=== PATIENT | female | born 1935 | race Caucasian/White ===

== ENCOUNTER 2018-12-30 11:37 | Emergency (ER) | payer MEDICARE, SELFPAY ==
[2018-12-30 12:05] VITALS: BP 142/70; PULSE 71; RESP 16; TEMP 36.9; O2SAT 96
[2018-12-30 13:00] VITALS: BP 120/74; PULSE 84; RESP 16; O2SAT 95
[2018-12-30 13:19] LABS: Add Manual Diff / Slide Review NO; Basophils Absolute Auto 100 /uL (0-100); Basophils Percent Auto 1.1 % (0-2); Eosinophils Absolute Auto 100 /uL (0-450); Eosinophils Percent Auto 1.4 % (2-4); Hemoglobin 15.4 g/dL (12.0-16.0); Lymphocytes Absolute Auto 1400 /uL (1100-4500); Lymphocytes Percent Auto 15.8 % (25-40); Mean Corpuscular HGB Conc 34.2 % (30-36); Mean Corpuscular Hemoglobin 29.1 PG (26-34); Mean Corpuscular Volume 85.1 fL (80-100); Monocytes Absolute Auto 900 /uL (0-900); Monocytes Percent Auto 9.9 % (3-14); Neutrophils Absolute Auto 6400 /uL (1500-7000); Neutrophils Percent Auto 71.8 % (50-75); Platelet Count 311 X10^3/uL (150-400); Red Blood Cell Count 5.28 X10^6/uL (4.0-5.2); Red Cell Distribution Width 13.6 % (11.6-14.8); White Blood Cell Count 8.9 X10^3/uL (4.5-11.0)
[2018-12-30 13:37] LABS: Alanine Aminotransferase 35 IU/L (9-52); Albumin 4.4 g/dL (3.5-5.0); Albumin Globulin Ratio 1.4 (1.0-2.8); Alkaline Phosphatase 86 U/L (38-126); Aspartate Aminotransferase 36 IU/L (14-36); BUN Creatinine Ratio 16.7 (6-22); Bilirubin Total 0.9 mg/dL (0.2-1.3); Blood Urea Nitrogen 15 mg/dL (7-17); Calcium 9.7 mg/dL (8.4-10.2); Carbon Dioxide 30 mmol/L (22-32); Chloride 100 mmol/L (98-107); Estimated Glomerular Filt Rate > 60.0 mL/min (>60); Globulin 3.1 g/dL (1.7-4.1); Glucose 93 mg/dL (80-110); HEMOLYSIS < 15 (0-50); Lipase 87 U/L (23-300); Potassium 3.8 mmol/L (3.4-5.1); Sodium 139 mmol/L (137-145); Total Protein 7.5 g/dL (6.3-8.2)
--- NOTE | 2018-12-30 13:55 | DI.CT.S_ITS ---
PROCEDURE: CT ABDOMEN PELVIS W CON INDICATIONS: left lower quadrant pain, bilateral low back pain, indigestion, hx diverticu TECHNIQUE: After the administration of oral and intravenous contrast, 5 mm thick sections acquired from the diaphragms to the symphysis. 5 mm thick coronal and sagittal reformats were performed. For radiation dose reduction, the following was used: automated exposure control, adjustment of mA and/or kV according to patient size. COMPARISON: None. FINDINGS: Image quality: Excellent. ABDOMEN: Lung bases: Lung bases are clear. Heart size is normal. Solid organs: Liver is normal in size and enhancement. Gallbladder appears normal. Biliary system is non-dilated. Pancreas enhances normally. Spleen is normal in size and enhancement. No adrenal nodules. Kidneys are normal in size and enhancement, without hydronephrosis. Peritoneum and bowel: Stomach, small bowel, and colon loops are normal in caliber and wall thickness. No free fluid or air. Nodes and vessels: No retroperitoneal or mesenteric adenopathy. Aorta and inferior vena cava are normal in caliber. Miscellaneous: No ventral hernias. PELVIS: Genitourinary: Bladder wall thickness is normal. Miscellaneous: No inguinal hernias or adenopathy. Acute mild diverticulitis at the sigmoid colon in its middle and posterior thirds. Bones: No suspicious bony lesions. No vertebral body compression fractures. IMPRESSION: Acute sigmoid diverticulitis, without peridiverticular abscess. Otherwise the study appears normal. Dictated by: Cristóbal Mcdowell M.D. on 12/30/2018 at 14:58 Approved by: Cristóbal Mcdowell M.D. on 12/30/2018 at 14:59
[2018-12-30 14:19] VITALS: BP 133/61; PULSE 67; RESP 15; O2SAT 97
[2018-12-30 14:59] LABS: Bacteria Urine None Seen; WBC Urine None Seen (0-5/HPF)
[2018-12-30 15:00] VITALS: BP 121/61; PULSE 76; RESP 16; O2SAT 96
[2018-12-30 15:10] LABS: Culture Indicated Urine Cult Not Indicated; RBC Urine 1-5/HPF (0-5/HPF)
--- NOTE | 2018-12-30 15:18 | ED_ITS ---
HPI - Abdominal Pain <RENE VillanuevaP - Last Filed: 12/31/18 02:39> General Chief Complaint: Abdominal Pain Stated Complaint: states diverticulitis is back Time Seen by Provider: 12/30/18 12:00 Source: patient Mode of arrival: ambulatory Limitations: no limitations History of Present Illness HPI narrative: This is a pleasant 83-year-old female, nonsmoker, who presents to ED with left lower quadrant pain for 2 days with bilateral lower back pain. She reports she had diverticulitis about 10 years ago and her symptoms are similar to previous diverticulitis. She denies fever, chills, vomiting. She reports nausea, indigestion, acidic stomach. Patient states no changing in bowel habits and last bowel movement was this morning. She does have decrease in appetite and feeling gassy. The pain aggravates with movement, or changing in position. Related Data Previous Rx's Medication Instructions Recorded ciprofloxacin HCl [Cipro] 500 mg PO BID 7 Days #14 tab 12/30/18 metronidazole [Flagyl] 500 mg PO BID 7 Days #14 tab 12/30/18 metronidazole [Flagyl] 500 mg PO Q8H 7 Days #21 tab 12/30/18 ondansetron 4 mg PO Q6H PRN #7 tab 12/30/18 Allergies Allergy/AdvReac Type Severity Reaction Status Date / Time No Known Drug Allergies Allergy Verified 12/30/18 12:01 Review of Systems <RENE VillanuevaP - Last Filed: 12/31/18 02:39> Review of Systems General: See HPI HEENT: Denies sinus pain, ear pain, sore throat, difficulty swallowing, dizziness. Respiratory: Denies dyspnea, cough, wheezing, hemoptysis, sputum. Cardiovascular: Denies chest pain, palpitations, orthopnea, edema. Gastrointestinal: See HPI : Denies dysuria, frequency, incontinence, hematuria, urinary retention. Musculoskeletal: Reports low bilateral back pain. Denies weakness, joint pain or bony pain. Skin: Denies rash, skin lesions, or other. Neurologic: Denies weakness, headache, numbness, change in speech, confusion, seizures, incoordination. Psychiatric: No concerning psychosocial issues. 12-point review of systems is negative except for those stated above. PFSH <RENE VillanuevaP - Last Filed: 12/31/18 02:39> Medical History No significant past surgical history (Acute) Diverticulitis (Chronic) Social History Smoking Status: Never smoker Social History Smoking Status: Never smoker Exam <KESHA Villanueva - Last Filed: 12/31/18 02:39> Narrative Exam Narrative: GEN: Alert, oriented x 3, well appearing and nourished, and in no acute distress. Head: Normal cephalic, atraumatic. No scalp or temporal tenderness, palpable mass or rash. EYES: Pupils are equal, round, and reactive to light and accommodation. Extraocular muscles are intact bilaterally. There is no subconjunctival hemorrhage, exudate and sclera non-icteric. ENT: Nose without bleeding, purulent discharge. Mucous membrane moist, no mucosal lesion. Throat without erythema, tonsillar hypertrophy or exudate. Uvula in midline, airway patent. Neck: Trachea in midline. No JVD, non-tender without lymphadenopathy. No masses or thyroid megaly. Supple, non-tender and no meningeal signs. CARDIAC: Normal regular rate and rhythm without murmurs, gallops, or rubs. No chest wall tenderness. No peripheral edema, cyanosis or pallor. Capillary refill is less than 2 seconds. RESPIRATORY: Lungs are cleat to auscultate bilaterally. No cough, wheezes, rales, or rhonchi. No stridor, respiratory distress, increase work of breathing, or accessary muscle used. ABD: Tender to palpate in LLQ. Abdomen soft and non-distended. No guarding or rebound tenderness to palpate. Bowel sounds are normal in all 4 quadrants. There is no palpable masses or organomegaly. EXT: Full painless ROM of all extremities with no loss of sensation, strength, effusion or edema. SKIN: Warm, dry, normal color for patient. No erythema, lesions or rash over visible areas. BACK: Nontender without deformity or crepitance. No flank tenderness. NEUROLOGICAL: Alert and oriented to place, time and person. Sensation and motor function intact bilaterally. No facial droops, dysphasia. PSYCHIATRIC: Good judgement and reason, without hallucinations, abnormal affect or abnormal behaviors during the examination. Patient is not suicidal. Initial Vital Signs Initial Vital Signs: Vital Signs Temperature 98.5 F 12/30/18 12:05 Pulse Rate 71 12/30/18 12:05 Respiratory Rate 16 12/30/18 12:05 Blood Pressure 142/70 H 12/30/18 12:05 Pulse Oximetry 96 12/30/18 12:05 <Rohit Ambrosio DO - Last Filed: 12/31/18 07:34> Initial Vital Signs Initial Vital Signs: Vital Signs Temperature 98.5 F 12/30/18 12:05 Pulse Rate 71 12/30/18 12:05 Respiratory Rate 16 12/30/18 12:05 Blood Pressure 142/70 H 12/30/18 12:05 Pulse Oximetry 96 12/30/18 12:05 Course <KESHA Villanueva - Last Filed: 12/31/18 02:39> Orders Ordered: Discontinued Medications Ciprofloxacin (Cipro) 500 mg PO NOW ONE Stop: 12/30/18 15:20 Last Admin: 12/30/18 15:28 Dose: 500 mg Sodium Chloride (Normal Saline 0.9%) 1,000 mls @ 150 mls/hr IV CONT [facility] Last Admin: 12/30/18 15:31 Dose: Not Given Metronidazole (Metronidazole) 500 mg PO NOW ONE Stop: 12/30/18 15:20 Last Admin: 12/30/18 15:28 Dose: 500 mg Vital Signs - 8 hr 12/30/18 12:05 12/30/18 14:19 Temperature 98.5 F Pulse Rate 71 67 Respiratory Rate 16 15 Blood Pressure [Right Arm] 142/70 H 133/61 Pulse Oximetry 96 97 <DO Margot Art Last Filed: 12/31/18 07:34> Orders Ordered: Discontinued Medications Ciprofloxacin (Cipro) 500 mg PO NOW ONE Stop: 12/30/18 15:20 Last Admin: 12/30/18 15:28 Dose: 500 mg Sodium Chloride (Normal Saline 0.9%) 1,000 mls @ 150 mls/hr IV CONT [facility] Last Admin: 12/30/18 15:31 Dose: Not Given Metronidazole (Metronidazole) 500 mg PO NOW ONE Stop: 12/30/18 15:20 Last Admin: 12/30/18 15:28 Dose: 500 mg Vital Signs - 8 hr 12/30/18 12:05 12/30/18 14:19 Temperature 98.5 F Pulse Rate 71 67 Respiratory Rate 16 15 Blood Pressure [Right Arm] 142/70 H 133/61 Pulse Oximetry 96 97 MDM - Abdominal Pain <Papito KESHA Mari - Last Filed: 12/31/18 02:39> Differential Diagnosis Differential diagnosis: Likely abdominal pain, acute appendicitis and diverticulitis Medical Records Attestation: I reviewed the patient's medical records. Lab Data Attestation: I reviewed the patient's lab results. Result diagrams: 12/30/18 12:50 12/30/18 12:50 Lab Results 12/30/18 12/30/18 12/30/18 Range/Units 12:47 12:50 12:50 WBC 8.9 (4.5-11.0) X10^3/uL RBC 5.28 H (4.0-5.2) X10^6/uL Hgb 15.4 (12.0-16.0) g/dL Hct 45.0 (36-46) % MCV 85.1 (80-100) fL MCH 29.1 (26-34) PG MCHC 34.2 (30-36) % RDW 13.6 (11.6-14.8) % Plt Count 311 (150-400) X10^3/uL Neut % (Auto) 71.8 (50-75) % Lymph % (Auto) 15.8 L (25-40) % [place] % (Auto) 9.9 (3-14) % Eos % (Auto) 1.4 L (2-4) % Baso % (Auto) 1.1 (0-2) % Neut # (Auto) 6400 (8140-4962) /uL Lymph # (Auto) 1400 (7929-1464) /uL [place] # (Auto) 900 (0-900) /uL Eos # (Auto) 100 (0-450) /uL Baso # (Auto) 100 (0-100) /uL Sodium 139 (137-145) mmol/L Potassium 3.8 (3.4-5.1) mmol/L Chloride 100 (98-107) mmol/L Carbon Dioxide 30 (22-32) mmol/L BUN 15 (7-17) mg/dL Creatinine 0.90 (0.52-1.04) mg/dL Estimated GFR > 60.0 (>60) mL/min BUN/Creatinine Ratio 16.7 (6-22) Glucose 93 (80-110) mg/dL Calcium 9.7 (8.4-10.2) mg/dL Total Bilirubin 0.9 (0.2-1.3) mg/dL AST 36 (14-36) IU/L ALT 35 (9-52) IU/L Alkaline Phosphatase 86 (38-126) U/L Total Protein 7.5 (6.3-8.2) g/dL Albumin 4.4 (3.5-5.0) g/dL Globulin 3.1 (1.7-4.1) g/dL Albumin/Globulin Ratio 1.4 (1.0-2.8) Lipase 87 (23-300) U/L Urine RBC 1-5/hpf (0-5/HPF) Urine WBC None seen (0-5/HPF) Urine Bacteria None seen (None) Ur Culture Indicated? Cult not indicated Point of care testing: Urine Dip Bedside Urine Glucose Negative Bedside Urine Bilirubin - Negative Bedside Urine Ketone - Negative Urine Specific Funk 1.020 Bedside Urine Occult Blood +/- Bedside Urine pH 6.0 Bedside Urine Protein - Negative Bedside Urine Urobilinogen - Negative Bedside Urine Nitrite - Negative Bedside Urine Leukocytes - Negative Esterase Imaging Data CT scan - abdomen: Radiologist's impression: Viry Reyes 83 F [address] [place] [address] CT Scan Report Signed Patient: Viry Reyes [facility]#: [id number] : 8Acct:[id number] Age/Sex: 83 / FDate of Service: 12/30/18 Loc: ED Accession Number: [id number] Procedure: CT abdomen pelvis w con Ordering Provider: Papito Mari PROCEDURE: CT ABDOMEN PELVIS W CON INDICATIONS: left lower quadrant pain, bilateral low back pain, indigestion, hx diverticu TECHNIQUE: After the administration of oral and intravenous contrast, 5 mm thick sections acquired from the diaphragms to the symphysis. 5 mm thick coronal and sagittal reformats were performed. For radiation dose reduction, the following was used: automated exposure control, adjustment of mA and/or kV according to patient size. COMPARISON: None. FINDINGS: Image quality: Excellent. ABDOMEN: Lung bases: Lung bases are clear. Heart size is normal. Solid organs: Liver is normal in size and enhancement. Gallbladder appears normal. Biliary system is non-dilated. Pancreas enhances normally. Spleen is normal in size and enhancement. No adrenal nodules. Kidneys are normal in size and enhancement, without hydronephrosis. Peritoneum and bowel: Stomach, small bowel, and colon loops are normal in caliber and wall thickness. No free fluid or air. Nodes and vessels: No retroperitoneal or mesenteric adenopathy. Aorta and inferior vena cava are normal in caliber. Miscellaneous: No ventral hernias. PELVIS: Genitourinary: Bladder wall thickness is normal. Miscellaneous: No inguinal hernias or adenopathy. Acute mild diverticulitis at the sigmoid colon in its middle and posterior thirds. Bones: No suspicious bony lesions. No vertebral body compression fractures. IMPRESSION: Acute sigmoid diverticulitis, without peridiverticular abscess. Otherwise the study appears normal. Dictated by: Cristóbal Mcdowell M.D. on 12/30/2018 at 14:58 Approved by: Cristóbal Mcdoewll M.D. on 12/30/2018 at 14:59 [facility] Narrative Medical decision making narrative: This is pleasant 83-year-old female with left lower quadrant pain with nausea for last 2 days. She reports history of nonsurgical, diverticulitis about 10 years ago. Patient denies fever, chills, vomiting. The patient's blood test and urine tests were all unremarkable. Abdomen/Pelvis CT indicates acute sigmoid diverticulitis without Zunilda diverticular abscess. Patient was medicated with Cipro 500 mg and Flagyl 500 mg prior DC to home. Prescription for same medications were provided for 7 day course for Cipro b.i.d., Flagyl t.i.d. Return precautions were discussed with patient. Patient was to follow up with her primary care physician next week. Patient was evaluated several times during ED course. Patient advised not to drink with Flagyl. Questions answered to apparent satisfaction. As patient's r equest, dietary suggestions for diverticulitis was provided for review. <Rohit Ambrosio DO - Last Filed: 12/31/18 07:34> Lab Data Lab Results 12/30/18 12/30/1812/30/19 Range/Units 12:47 12:50 12:50 WBC 8.9 (4.5-11.0) X10^3/uL RBC 5.28 H (4.0-5.2) X10^6/uL Hgb 15.4 (12.0-16.0) g/dL Hct 45.0 (36-46) % MCV 85.1 (80-100) fL MCH 29.1 (26-34) PG MCHC 34.2 (30-36) % RDW 13.6 (11.6-14.8) % Plt Count 311 (150-400) X10^3/uL Neut % (Auto) 71.8 (50-75) % Lymph % (Auto) 15.8 L (25-40) % Berrien % (Auto) 9.9 (3-14) % Eos % (Auto) 1.4 L (2-4) % Baso % (Auto) 1.1 (0-2) % Neut # (Auto) 6400 (9123-0543) /uL Lymph # (Auto) 1400 (5872-8400) /uL [place]rien # (Auto) 900 (0-900) /uL Eos # (Auto) 100 (0-450) /uL Baso # (Auto) 100 (0-100) /uL Sodium 139 (137-145) mmol/L Potassium 3.8 (3.4-5.1) mmol/L Chloride 100 (98-107) mmol/L Carbon Dioxide 30 (22-32) mmol/L BUN 15 (7-17) mg/dL Creatinine 0.90 (0.52-1.04) mg/dL Estimated GFR > 60.0 (>60) mL/min BUN/Creatinine Ratio 16.7 (6-22) Glucose 93 (80-110) mg/dL Calcium 9.7 (8.4-10.2) mg/dL Total Bilirubin 0.9 (0.2-1.3) mg/dL AST 36 (14-36) IU/L ALT 35 (9-52) IU/L Alkaline Phosphatase 86 (38-126) U/L Total Protein 7.5 (6.3-8.2) g/dL Albumin 4.4 (3.5-5.0) g/dL Globulin 3.1 (1.7-4.1) g/dL Albumin/Globulin Ratio 1.4 (1.0-2.8) Lipase 87 (23-300) U/L Urine RBC 1-5/hpf (0-5/HPF) Urine WBC None seen (0-5/HPF) Urine Bacteria None seen (None) Ur Culture Indicated? Cult not indicated Point of care testing: Urine Dip Bedside Urine Glucose Negative Bedside Urine Bilirubin - Negative Bedside Urine Ketone - Negative Urine Specific Funk 1.020 Bedside Urine Occult Blood +/- Bedside Urine pH 6.0 Bedside Urine Protein - Negative Bedside Urine Urobilinogen - Negative Bedside Urine Nitrite - Negative Bedside Urine Leukocytes - Negative Esterase Discharge Plan Departure Patient Disposition: Home Clinical Impression: Diverticulitis Discharge Date/Time: 12/30/18 16:25 Interventions: ED Discharge Assessment Last Done: 12/30/18 16:25 Instructions: DI for Diverticulitis Activity Restrictions/Additional Instructions: You have been diagnosed with [your blood test is within normal. However CT scan shows diverticulitis in sigmoid colon. Please have clear liquid diet for next couple of days. He can advance her diet as tolerated after then. Please incorporate high-fiber in her diet. ]. What to do: *Take your medications as directed. You will be going home with Cipro and Flagyl for antibiotic medications and please complete a course of antibiotic medications unless these give you allergy reaction. *Follow up with your primary care provider in 2-3 days, call for an appointment. Let them know you were seen in the ED and that we asked you to be seen in follow up. *Return to ED if you have any new, worsening, or concerning symptoms, such as [severe abdominal pain, fever/chills, unable to tolerate fluids, chest pain, breathing difficulty, any acute concerns]. Prescriptions: New metronidazole [Flagyl] 500 mg tablet 500 mg PO BID 7 Days Qty: 14 RF: 0 ciprofloxacin HCl [Cipro] 500 mg tablet 500 mg PO BID 7 Days Qty: 14 RF: 0 metronidazole [Flagyl] 500 mg tablet 500 mg PO Q8H 7 Days Qty: 21 RF: 0 ondansetron 4 mg tablet,disintegrating 4 mg PO Q6H PRN (Reason: nausea and vomiting) Qty: 7 RF: 0 Referrals: Susan Douglas MD [Non-Staff] - <Rohit Ambrosio DO - Last Filed: 12/31/18 07:34> Cosign ED Attending [place] Attestation: I was available for consultation during this patient's emergency department encounter
[2018-12-30] MEDS: CIPROFLOXACIN 500 MG TABLET PO (15:28)
[2018-12-30] MEDS: metroNIDAZOLE 250 MG TABLET 500 MG PO (15:28)
[2018-12-30 16:00] VITALS: BP 125/62; PULSE 63; RESP 15; O2SAT 95
== END 2018-12-30 16:25 | disposition home or self-care (01) ==
PROVIDERS: Emergency Provider Nurse Practitioner Family
DX: K57.92 Diverticulitis of intestine, part unspecified, without perforation or abscess without bleeding (principal)
CPT/HCPCS: 36591; 74177; 80053; 81003; 81015; 83690; 85025; 99283; 99285; Q9967

== ENCOUNTER → 2019-06-06 13:37 | Outpatient (CLI) | payer MEDICARE, SELFPAY ==
--- NOTE | 2019-06-06 | DI.CT.S_ITS ---
PROCEDURE: CT CHEST HIGH RESOLUTION INDICATIONS: Interstitial pulmonary disease, unspecified TECHNIQUE: Noncontrast 1.0 and 5.0 mm thick contiguous axial sections from the pulmonary apex to the posterior costophrenic angles, with 7 mm thick coronal and sagittal MIP reformats. 1 mm thick dynamic expiratory images acquired through the upper, mid, and lower lungs. 1.0 mm thick axial sections acquired from the laurie to the posterior costophrenic angles in the prone end-inspiration position. For radiation dose reduction, the following was used: automated exposure control, adjustment of mA and/or kV according to patient size. COMPARISON: [facility], CT, CT ABDOMEN PELVIS W CON, 12/30/2018, 13:55. [facility], CR, XR CHEST 2 VIEWS, 05/26/2019, 16:31. FINDINGS: Image quality: Excellent. Lungs: Scattered scarring and atelectasis. No acute consolidation. No tree-in-bud opacities. No evidence of honeycombing. No definite mosaic lung attenuation is seen. Scattered subcentimeter bilateral pulmonary nodules noted measuring up to 4 mm, technically indeterminate in the absence of more remote prior studies. Pleura: No pleural effusions or pneumothorax. Mediastinum: Heart size is normal. Coronary artery calcifications are present. No pericardial effusion. Thoracic aorta and central pulmonary arteries are normal in size. Esophagus is normal in caliber. Bones and chest wall: No suspicious bony lesions. No vertebral body compression fractures. Small bilateral fat containing diaphragmatic hernias Abdomen: Visualized upper abdominal solid organs and bowel loops appear normal. IMPRESSION: Nonspecific diffuse scarring/atelectasis. No acute consolidation. No evidence of honeycombing is seen. Bilateral subcentimeter pulmonary nodules, technically indeterminate although followup chest CT in one year recommended to document stability Dictated by: Clark Reis M.D. on 06/06/2019 at 17:04 Approved by: Clark Reis M.D. on 06/06/2019 at 17:14
== END ==
PROVIDERS: Visit Provider Internal Medicine Cardiovascular Disease
DX: J84.9 Interstitial pulmonary disease, unspecified (principal); R91.8 Other nonspecific abnormal finding of lung field; R06.09 Other forms of dyspnea; I25.10 Atherosclerotic heart disease of native coronary artery without angina pectoris; K44.9 Diaphragmatic hernia without obstruction or gangrene
CPT/HCPCS: 71250

== ENCOUNTER → 2019-06-14 12:50 | Outpatient (CLI) | payer MEDICARE, SELFPAY ==
--- NOTE | 2019-06-19 16:55 | P.PFT.S_ITS ---
Pulmonary Function Test Referral & Results Date Patient Seen: 06/14/19 Requesting provider: Ginny Parker Results: The spirometry demonstrates an FVC of 2.70 L which is 110% of predicted. The FEV1 was measured at 2.20 L which is 121% of predicted. The FEV1/FVC ratio was 82 which is 110% of predicted. Following the administration of bronchodilator there was no significant change to above normal numbers. Lung volumes show an SVC of 2.92 L which is 114% of predicted. The diffusing capacity was measured at 14.2 which is 61% of predicted. No hemoglobin value was provided, so no correction for potential anemia could be made, if appropriate. The maximum voluntary ventilation was slightly reduced Interpretation: This study demonstrates normal spirometry but moderately reduced diffusing [place] suggesting some disease the capillary alveolar level
== END ==
PROVIDERS: PCP Family Medicine; Visit Provider Internal Medicine Cardiovascular Disease
DX: R06.09 Other forms of dyspnea (principal)
CPT/HCPCS: 94060; 94726; 94729

== ENCOUNTER → 2020-04-04 13:38 | Outpatient (CLI) | payer MEDICARE, SELFPAY ==
--- NOTE | 2020-04-04 | DI.RAD.S_ITS ---
PROCEDURE: FL BARIUM SWALLOW INDICATIONS: Gastro-esophageal reflux disease COMPARISON: None. FINDINGS: Function: There are tertiary contraction waves in the distal esophagus compatible with mild esophageal dysmotility. Mild gastroesophageal reflux occurred without provocative maneuvers. There is normal transit of a calibrated barium tablet through the esophagus into the stomach. Morphology: Air-contrast images demonstrate normal mucosal morphology. Single contrast views show no esophageal strictures, extrinsic mass effects, or diverticula. Limited images of the stomach demonstrate normal appearance. IMPRESSION: 1. Mild esophageal dysmotility. 2. Gastroesophageal reflux. Dictated by: Ernestina Shipley MD, PhD on 04/04/2020 at 17:08 Approved by: Ernestina Shipley MD, PhD on 04/04/2020 at 17:09
== END ==
PROVIDERS: PCP Family Medicine; Referring Provider Family Medicine; Visit Provider Family Medicine
DX: K21.9 Gastro-esophageal reflux disease without esophagitis (principal); K22.4 Dyskinesia of esophagus
CPT/HCPCS: 74220

== ENCOUNTER 2020-06-21 05:50 | Observation (INO) | payer MEDICARE, SELFPAY ==
[2020-06-21] VITALS (24 sets, daily range): BP systolic 92–174; BP diastolic 51–87; PULSE 62–131; RESP 8–28; TEMP 36.4–36.9; O2SAT 92–98; BMI 23.0
--- NOTE | 2020-06-21 | DI.RAD.S_ITS ---
PROCEDURE: XR CHEST 1V INDICATIONS: afib TECHNIQUE: One view of the chest was acquired. COMPARISON: None. FINDINGS: Surgical changes and devices: None. Lungs and pleura: Lungs are clear. No pleural effusions or pneumothorax. Mediastinum: Mediastinal contours appear normal. Heart size is normal. Bones and chest wall: No suspicious bony lesions. Overlying soft tissues appear unremarkable. IMPRESSION: No acute pulmonary process. Dictated by: Bette Marroquin M.D. on 06/21/2020 at 8:20 Approved by: Bette Marroquin M.D. on 06/21/2020 at 8:20
--- NOTE | 2020-06-21 05:58 | ED.ARRPALP ---
HPI - Arrhythmia/Palpitations General Chief Complaint: Arrhythmia/Palpitations Stated Complaint: Afib Time Seen by Provider: 06/21/20 05:51 Source: patient and EMS Mode of arrival: EMS Limitations: no limitations History of Present Illness HPI narrative: 84F non smoker with possible history of AFib presents by EMS for evaluation of palpitations that have been present since last night. She is not dizzy nor weak or lightheaded. She denies chest pain or shortness of breath. She denies any exertional dyspnea or increased fatigue. She has had no fever or chills. She denies exposure to persons known to have COVID. She denies recent travel. She states that about 2 years ago she was seen and evaluated at another facility and was told she may have had atrial fibrillation. She was referred to Cardiology who had outpatient testing and was told she likely did not have AFib MD complaint: rapid heart beat, heart racing and palpitations Onset (ago): hour(s) Duration: constant Severity: moderate Context: occurred during rest Arrhythmia history: atrial fibrillation Associated symptoms: denies other symptoms Related Data Previous Rx's Medication Instructions Recorded ondansetron 4 mg PO Q6H PRN #7 tab 12/30/18 Allergies Allergy/AdvReac Type Severity Reaction Status Date / Time No Known Drug Allergies Allergy Verified 12/30/18 12:01 Review of Systems Constitutional Constitutional: Denies chills, Denies fatigue, Denies fever(s), Denies frequent falls, Denies lethargy and Denies weakness Eyes Eyes: Denies change in vision, Denies eye discharge, Denies irritation and Denies loss of vision ENT Ears, Nose, Mouth, and Throat: Denies change in voice, Denies dizziness, Denies neck pain, Denies sore throat and Denies throat swelling Cardiovascular Cardiovascular: Denies chest pain, Reports irregular heart rhythm, Reports palpitations, Denies dyspnea, Denies dyspnea on exertion and Denies orthopnea Respiratory Respiratory: Denies cough, Denies dyspnea, Denies dyspnea on exertion and Denies wheezing Gastrointestinal Gastrointestinal: Denies abdominal pain, Denies change in bowel habits, Denies diarrhea, Denies nausea and Denies vomiting Musculoskeletal Musculoskeletal: Denies neck pain and Denies numbness Integumentary/Breasts Skin/Breast: Denies pruritus, Denies erythema, Denies rash and Denies wounds Neurologic Neurologic: Denies behavioral changes, Denies confusion, Denies dizziness, Denies frequent falls, Denies loss of vision, Denies numbness and Denies weakness Psychiatric Psychiatric: Denies anxiety, Denies behavioral changes, Denies confusion, Denies depression, Denies homicidal ideation and Denies suicidal ideation Endocrine Endocrine: Denies fatigue, Denies flushing and Reports palpitations Hematologic/Lymphatic Hematologic/Lymphatic: Denies easy bruising Allergic/Immunologic Allergic/Immunologic: Denies urticaria, Denies throat swelling and Denies wheezing Patient History Medical History (Updated 06/21/20 @ 07:52 by Bogdan Becerra DO) Diverticulitis Surgical History No significant past surgical history Social History Smoking Status: Never smoker Smoking Status: Never smoker Substance Use Type: does not use Exam Narrative Exam Narrative: GENERAL: [84] year old patient appears stated age. Well-nourished, well-developed patient, in mild distress. HEAD: Atraumatic. Normocephalic. EYES: Pupils equal round and reactive. Extraocular motions intact. No scleral icterus. No injection or drainage. ENT: Nose without bleeding, purulent drainage. Throat without erythema, tonsillar hypertrophy or exudate. Airway patent. NECK: Trachea midline. Non tender CARDIOVASCULAR:Tachycardic and irregular rhythm without murmurs, gallops, or rubs. RESPIRATORY: Clear to auscultation. Breath sounds equal bilaterally. No wheezes, rales, or rhonchi. GASTROINTESTINAL: Abdomen soft, non-tender, nondistended. EXTREMITIES: No edema or joint tenderness. BACK: Nontender without deformity or crepitance. No flank tenderness. NEURO: AOx3. SKIN: No rash or erythema of visible areas Initial Vital Signs Initial Vital Signs: Vital Signs Temperature 98.2 F 06/21/20 05:56 Pulse Rate 131 H 06/21/20 05:56 Respiratory Rate 22 06/21/20 05:56 Blood Pressure 140/86 06/21/20 05:56 Pulse Oximetry 98 06/21/20 05:56 Procedures Cardioversion Consent Signed: Yes Indication: rapid atrial fib Stability: Stable Number of attempts (shocks): 1 Joules used: 150 Cardiac rhythm post-cardioversion: NSR Notice:: after about 1 minute she then converted back to atrial fibrillation 95-110, does feel better however Course Course Course Narrative: newly discovered, but largely asymptomatic rapid atrial fibrillation started last night. Initially a successful cardioversion, but only lasted about one minute. Patient rate controlled on cardizem drip, hospitalist happy to accept Orders Ordered: ED Orders 06/21/20 05:54 EKG-12 Lead Stat 06/21/20 06:00 Complete Blood Count AUTO DIFF Stat Comprehensive Metabolic Panel Stat Lipase Stat NT-proBNP (BNP-Adult 18+) Stat Troponin & CK Cardiac Panel Stat 06/21/20 07:12 COVID19 Stat Sodium Chloride (Normal Saline 0.9%) 1,000 mls @ 150 mls/hr IV CONT NGOC Last Admin: 06/21/20 06:13 Dose: 150 mls/hr Documented by: KALIE DILTIAZEM (Diltiazem 125 Mg/125 Ml-D5w) 125 mg in 125 mls @ 5 mls/hr IV TITRATE NGOC; Protocol Last Admin: 06/21/20 07:11 Dose: 5 mg/hr, 5 mls/hr Documented by: KALIE Discontinued Medications Apixaban (Apixaban 5 Mg Tablet) 5 mg PO NOW ONE Stop: 06/21/20 06:58 Last Admin: 06/21/20 07:23 Dose: 5 mg Documented by: KALIE Diltiazem HCl (Diltiazem 5 Mg/Ml Sdv) 10 mg IV NOW ONE Stop: 06/21/20 06:09 Last Admin: 06/21/20 06:12 Dose: 10 mg Documented by: KALIE Propofol (Propofol 200 Mg/20 Ml Vial) 100 mg IV NOW ONE Stop: 06/21/20 06:34 Last Admin: 06/21/20 06:51 Dose: 50 mg Documented by: KALIE Vital Signs Vital signs: Vital Signs - 8 hr 06/21/20 05:56 06/21/20 06:03 06/21/20 06:04 Temperature 98.2 F Pulse Rate 131 H 130 H 127 H Respiratory Rate 22 28 H 20 Blood Pressure 140/86 140/86 Pulse Oximetry 98 98 97 06/21/20 06:19 06/21/20 06:30 06/21/20 06:36 Temperature Pulse Rate 128 H 109 H 101 H Respiratory Rate 17 19 13 Blood Pressure 174/76 H 129/66 Pulse Oximetry 97 96 94 06/21/20 06:50 06/21/20 06:52 06/21/20 06:56 Temperature Pulse Rate 92 H 98 H 96 H Respiratory Rate 18 10 L 16 Blood Pressure 127/72 140/67 113/53 L Pulse Oximetry 97 97 92 06/21/20 07:00 06/21/20 07:02 06/21/20 07:04 Temperature Pulse Rate 85 94 H 80 Respiratory Rate 8 L 8 L 12 Blood Pressure 94/58 L 92/51 L Pulse Oximetry 95 94 95 06/21/20 07:10 Temperature Pulse Rate 89 Respiratory Rate 21 Blood Pressure 113/64 Pulse Oximetry 97 MDM - Arrhythmia/Palpitations Lab Data Result diagrams: 06/21/20 06:00 06/21/20 06:00 Labs: Lab Results 06/21/20 06/21/20 06/21/20 Range/Units 06:00 06:00 06:00 WBC 7.6 (4.5-11.0) X10^3/uL RBC 5.08 (4.0-5.2) X10^6/uL Hgb 14.7 (12.0-16.0) g/dL Hct 44.3 (36-46) % MCV 87.2 (80-100) fL MCH 29.0 (26-34) PG MCHC 33.3 (30-36) % RDW 14.1 (11.6-14.8) % Plt Count 279 (150-400) X10^3/uL Neut % (Auto) 60.6 (50-75) % Lymph % (Auto) 25.6 (25-40) % [place] % (Auto) 10.2 (3-14) % Eos % (Auto) 2.5 (2-4) % Baso % (Auto) 1.1 (0-2) % Neut # (Auto) 4600 (5784-5591) /uL Lymph # (Auto) 1900 (0719-9159) /uL [place] # (Auto) 800 (0-900) /uL Eos # (Auto) 200 (0-450) /uL Baso # (Auto) 100 (0-100) /uL Sodium 134 L (137-145) mmol/L Potassium 3.8 (3.4-5.1) mmol/L Chloride 100 (98-107) mmol/L Carbon Dioxide 31 (22-32) mmol/L BUN 17 (7-17) mg/dL Creatinine 0.65 (0.52-1.04) mg/dL Estimated GFR > 60.0 (>60) mL/min BUN/Creatinine Ratio 26.2 H (6-22) Glucose 105 (80-110) mg/dL Calcium 9.2 (8.4-10.2) mg/dL Total Bilirubin 0.2 (0.2-1.3) mg/dL AST 34 (14-36) IU/L ALT 23 (<35) IU/L Alkaline Phosphatase 97 (38-126) U/L Total Creatine Kinase 82 (30-135) U/L CK-MB (CK-2) TNP CK-MB (CK-2) Rel Index TNP Troponin I < 0.012 (0.01-0.034) ng/mL NT-Pro-B Natriuret Pep 106 (<450) pg/mL Total Protein 6.7 (6.3-8.2) g/dL Albumin 4.1 (3.5-5.0) g/dL Globulin 2.6 (1.7-4.1) g/dL Albumin/Globulin Ratio 1.6 (1.0-2.8) Lipase 140 (23-300) U/L SARS-CoV-2 (PCR) (Negative) 06/21/20 Range/Units 07:12 WBC (4.5-11.0) X10^3/uL RBC (4.0-5.2) X10^6/uL Hgb (12.0-16.0) g/dL Hct (36-46) % MCV (80-100) fL MCH (26-34) PG MCHC (30-36) % RDW (11.6-14.8) % Plt Count (150-400) X10^3/uL Neut % (Auto) (50-75) % Lymph % (Auto) (25-40) % [place] % (Auto) (3-14) % Eos % (Auto) (2-4) % Baso % (Auto) (0-2) % Neut # (Auto) (4244-9307) /uL Lymph # (Auto) (8480-6732) /uL [place] # (Auto) (0-900) /uL Eos # (Auto) (0-450) /uL Baso # (Auto) (0-100) /uL Sodium (137-145) mmol/L Potassium (3.4-5.1) mmol/L Chloride (98-107) mmol/L Carbon Dioxide (22-32) mmol/L BUN (7-17) mg/dL Creatinine (0.52-1.04) mg/dL Estimated GFR (>60) mL/min BUN/Creatinine Ratio (6-22) Glucose (80-110) mg/dL Calcium (8.4-10.2) mg/dL Total Bilirubin (0.2-1.3) mg/dL AST (14-36) IU/L ALT (<35) IU/L Alkaline Phosphatase (38-126) U/L Total Creatine Kinase (30-135) U/L CK-MB (CK-2) CK-MB (CK-2) Rel Index Troponin I (0.01-0.034) ng/mL NT-Pro-B Natriuret Pep (<450) pg/mL Total Protein (6.3-8.2) g/dL Albumin (3.5-5.0) g/dL Globulin (1.7-4.1) g/dL Albumin/Globulin Ratio (1.0-2.8) Lipase (23-300) U/L SARS-CoV-2 (PCR) Negative (Negative) Point of Care Testing Test Results Not applicable Discharge Plan Departure Patient Disposition: Admitted as Observation Clinical Impression: Atrial fibrillation with rapid ventricular response Atrial fibrillation Qualifiers: Atrial fibrillation type: paroxysmal Qualified Code(s): I48.0 - Paroxysmal atrial fibrillation
[2020-06-21 06:12] LABS: Add Manual Diff / Slide Review NO; Basophils Absolute Auto 100 /uL (0-100); Basophils Percent Auto 1.1 % (0-2); Eosinophils Absolute Auto 200 /uL (0-450); Eosinophils Percent Auto 2.5 % (2-4); Hematocrit 44.3 % (36-46); Hemoglobin 14.7 g/dL (12.0-16.0); Lymphocytes Absolute Auto 1900 /uL (1100-4500); Lymphocytes Percent Auto 25.6 % (25-40); Mean Corpuscular HGB Conc 33.3 % (30-36); Mean Corpuscular Volume 87.2 fL (80-100); Monocytes Absolute Auto 800 /uL (0-900); Monocytes Percent Auto 10.2 % (3-14); Neutrophils Absolute Auto 4600 /uL (1500-7000); Neutrophils Percent Auto 60.6 % (50-75); Platelet Count 279 X10^3/uL (150-400); Red Blood Cell Count 5.08 X10^6/uL (4.0-5.2); Red Cell Distribution Width 14.1 % (11.6-14.8); White Blood Cell Count 7.6 X10^3/uL (4.5-11.0)
[2020-06-21] MEDS: dilTIAZem 5 MG/ML SDV 10 MG IV (06:12)
[2020-06-21] MEDS: SODIUM CHLORIDE 0.9% 1,000 ML 150 ML IV (06:13)
[2020-06-21 06:22] LABS: Alanine Aminotransferase 23 IU/L (<35); Albumin 4.1 g/dL (3.5-5.0); Albumin Globulin Ratio 1.6 (1.0-2.8); Alkaline Phosphatase 97 U/L (38-126); Aspartate Aminotransferase 34 IU/L (14-36); BUN Creatinine Ratio 26.2 (6-22); Bilirubin Total 0.2 mg/dL (0.2-1.3); Blood Urea Nitrogen 17 mg/dL (7-17); Calcium 9.2 mg/dL (8.4-10.2); Carbon Dioxide 31 mmol/L (22-32); Chloride 100 mmol/L (98-107); Creatine Kinase 82 U/L (30-135); Estimated Glomerular Filt Rate > 60.0 mL/min (>60); Globulin 2.6 g/dL (1.7-4.1); Glucose 105 mg/dL (80-110); HEMOLYSIS < 15 (0-50); Lipase 140 U/L (23-300); Potassium 3.8 mmol/L (3.4-5.1); Sodium 134 mmol/L (137-145); Total Protein 6.7 g/dL (6.3-8.2)
[2020-06-21 06:31] LABS: NT-proBNP (BNP-Adult 18+) 106 pg/mL (<450)
[2020-06-21 06:34] LABS: Troponin I < 0.012 ng/mL (0.01-0.034)
[2020-06-21] MEDS: propofoL 200 MG/20 ML VIAL 100 MG IV (06:51)
[2020-06-21] MEDS: DILTIAZEM 125 MG/125 ML PIGGYBACK IV (07:11)
[2020-06-21] MEDS: APIXABAN 5 MG TABLET PO (07:23)
--- NOTE | 2020-06-21 07:23 | RT ---
At bedside for PRS, Cardioversion. Bag mask unit with suction on and functional at [facility]. Pt placed on etco2- 32 and 4lpm nc with Sao2 of 94-97. Pt skye well, at bedside and no distress noted. Pt weaned to room air with sao2 of 94% and awake, released by RN.
[2020-06-21 07:40] LABS: COVID19 -Nasal RAPID Negative (Negative)
[2020-06-21] MEDS: METOPROLOL ER 25 MG TABLET PO (08:18)
--- NOTE | 2020-06-21 08:39 | PC.NURSE ---
some stool mixed with urine, couldnt get a clean specimen.
[2020-06-21 09:10] LABS: Magnesium 2.1 mg/dL (1.6-2.3)
--- NOTE | 2020-06-21 10:14 | P.HP_ITS ---
History of Present Illness History of Present Illness Date Patient Seen: 06/21/20 Time Patient Seen: 10:16 Chief complaint: Afib Narrative: Viry Reyes is an 84-year-old female with a past medical history of GERD who presented with palpitations that started yesterday evening while doing Sudoku. Patient denies any prior symptoms including chest pain, prior palpi tations, shortness of breath, or dyspnea on exertion. Yesterday evening she was doing Sudoku puzzles at home when she is suddenly felt her heart racing and she felt like she could not breathe. She tried opening a window to breeze some cold air but this did not help and decided to come to the emergency room when it did not resolve. She denied chest pain during these episodes, shortness of breath, nausea, vomiting. She did have a sensation that her left ear was full but denied any jaw pain or arm numbness or tingling. She felt improved after medications given to her in the emergency room and by my interview she is without complaints. In the emergency room, patient was noted to be in AFib with RVR. She was given 10 mg of diltiazem with some improvement was given apixaban and then cardi oversion x1 was attempted. Patient converted to normal sinus rhythm but then returned into RVR after about 1 minutes according to the ER provider. She was then put on a diltiazem infusion with some improvement in her rate and was admitted for further evaluation of her atrial for fibrillation. Laboratory evaluation revealed an unremarkable CBC, unremarkable chemistry panel, within negative troponin and negative proBNP. COVID-19 testing was negative. EKG showed atrial fibrillation without evidence of active ischemia with a rate of 100. Chest x-ray was unremarkable. Patient History Medical History (Updated 06/21/20 @ 10:[address] DO) Diverticulitis GERD (gastroesophageal reflux disease) Surgical History No significant past surgical history Family & Social History Family History (Updated 06/21/20 @ 10:[address]or DO) Sister Atrial fibrillation Stroke Mother Stroke Social History: household members none Prior Living Arrangements House Safety & Behavioral: Feels Safe in Current Yes Environment Been Physically Hurt or No Threatened By a Person Suicidal Ideation Description None Tobacco & Substance use: Smoking Status Never smoker alcohol intake never Substance Use Type does not use Meds Home Medications and Allergies Home Medications Medication Instructions Recorded Confirmed Type trazodone 50 mg PO BEDTIME PRN 06/21/20 06/21/20 History Allergies Allergy/AdvReac Type Severity Reaction Status Date / Time No Known Drug Allergies Allergy Verified 12/30/18 12:01 Review of Systems Review of Systems Narrative: All other systems reviewed with the patient and are negative unless otherwise stated. Exam Vital Signs (past 8 hours): - 06/21/20 05:56 06/21/20 06:03 06/21/20 06:04 Temperature 98.2 F Pulse Rate 131 H 130 H 127 H Respiratory Rate 22 28 H 20 Blood Pressure 140/86 140/86 Pulse Oximetry 98 98 97 06/21/20 06:19 06/21/20 06:30 06/21/20 06:36 Temperature Pulse Rate 128 H 109 H 101 H Respiratory Rate 17 19 13 Blood Pressure 174/76 H 129/66 Pulse Oximetry 97 96 94 06/21/20 06:50 06/21/20 06:52 06/21/20 06:56 Temperature Pulse Rate 92 H 98 H 96 H Respiratory Rate 18 10 L 16 Blood Pressure 127/72 140/67 113/53 L Pulse Oximetry 97 97 92 06/21/20 07:00 06/21/20 07:02 06/21/20 07:04 Temperature Pulse Rate 85 94 H 80 Respiratory Rate 8 L 8 L 12 Blood Pressure 94/58 L 92/51 L Pulse Oximetry 95 94 95 06/21/20 07:10 06/21/20 07:30 06/21/20 07:45 Temperature Pulse Rate 89 87 79 Respiratory Rate 21 14 12 Blood Pressure 113/64 132/56 L 125/61 Pulse Oximetry 97 94 96 06/21/20 08:00 06/21/20 08:18 06/21/20 08:33 Temperature 97.6 F Pulse Rate 96 H 102 H 113 H Respiratory Rate 12 16 Blood Pressure 119/56 L 138/65 130/87 Pulse Oximetry 96 98 06/21/20 09:28 Temperature Pulse Rate Respiratory Rate Blood Pressure Pulse Oximetry 98 Oxygen Delivery Method Room Air Oxygen Flow Rate 0 Narrative Exam Narrative: GENERAL APPEARANCE: Well developed, well nourished, in no acute distress. SKIN: Inspection of the skin reveals no rashes, ulcerations or petechiae. HEENT: Normocephalic atraumatic, extraocular muscles are intact, oropharynx is clear and mucous membranes are moist, neck is supple without adenopathy NECK: Supple and symmetric. There was no thyroid enlargement, and no tenderness, or masses were felt. CHEST: Normal AP diameter and normal contour without any kyphoscoliosis. LUNGS: Auscultation of the lungs revealed no wheezes, rhonchi, or rales. CARDIOVASCULAR: Irregularly irregular rhythm with normal rate without any murmurs, gallops, rubs. Peripheral pulses were 2+ and symmetric. ABDOMEN: Soft and nontender with normal bowel sounds. No ascites was noted. MUSCULOSKELETAL: There was no tenderness or effusions noted. Muscle strength and tone were normal. EXTREMITIES: No cyanosis, clubbing or edema. NEUROLOGIC: Alert and oriented x 3. Normal affect. Gait was normal. Strength is +5/5 in the Upper Extremities and Lower Extremities Bilaterally. Sensation to touch was normal. Objective ECG Impression: Atrial fibrillation with premature ventricular or aberrantly conducted complexes, rate 100 Imaging Chest x-ray: My impression: Clear lung sheppard, no infiltrates. no cardiomegaly. Radiologist's impression: No acute cardiopulmonary disease. Labs Result Diagrams: 06/21/20 06:00 06/21/20 06:00 Labs: Laboratory Results - last 24 hr 06/21/20 06/21/20 06/21/20 06:00 06:00 06:00 WBC 7.6 RBC 5.08 Hgb 14.7 Hct 44.3 MCV 87.2 MCH 29.0 MCHC 33.3 RDW 14.1 Plt Count 279 Neut % (Auto) 60.6 Lymph % (Auto) 25.6 [place] % (Auto) 10.2 Eos % (Auto) 2.5 Baso % (Auto) 1.1 Neut # (Auto) 4600 Lymph # (Auto) 1900 [place] # (Auto) 800 Eos # (Auto) 200 Baso # (Auto) 100 Sodium 134 L Potassium 3.8 Chloride 100 Carbon Dioxide 31 BUN 17 Creatinine 0.65 Estimated GFR > 60.0 BUN/Creatinine Ratio 26.2 H Glucose 105 Calcium 9.2 Magnesium Total Bilirubin 0.2 AST 34 ALT 23 Alkaline Phosphatase 97 Total Creatine Kinase 82 CK-MB (CK-2) TNP CK-MB (CK-2) Rel Index TNP Troponin I < 0.012 NT-Pro-B Natriuret Pep 106 Total Protein 6.7 Albumin 4.1 Globulin 2.6 Albumin/Globulin Ratio 1.6 Lipase 140 SARS-CoV-2 (PCR) 06/21/20 06/21/20 06:00 07:12 WBC RBC Hgb Hct MCV MCH MCHC RDW Plt Count Neut % (Auto) Lymph % (Auto) [place] % (Auto) Eos % (Auto) Baso % (Auto) Neut # (Auto) Lymph # (Auto) [place] # (Auto) Eos # (Auto) Baso # (Auto) Sodium Potassium Chloride Carbon Dioxide BUN Creatinine Estimated GFR BUN/Creatinine Ratio Glucose Calcium Magnesium 2.1 Total Bilirubin AST ALT Alkaline Phosphatase Total Creatine Kinase CK-MB (CK-2) CK-MB (CK-2) Rel Index Troponin I NT-Pro-B Natriuret Pep Total Protein Albumin Globulin Albumin/Globulin Ratio Lipase SARS-CoV-2 (PCR) Negative Assessment & Plan Assessment & Plan narrative: Viry Reyes is an 84-year-old female with a past medical history of GERD who presented with palpitations who was admitted for atrial fibrillation with rapid ventricular response. 1. Atrial fibrillation with rapid ventricular response, unknown chronicity, present on admission - wean from dilt gtt as tolerated, given oral metoprolol 25 mg in ER. Will continue BID. - will order TTE, chest xray is unremarkable. - check TSH and repeat troponin at 6 hours. - Mg and potassium unremarkable. - given apixaban 5 mg in the ER. Continue at 2.5 mg BID given age and weight (59kg). - possible discharge home later today if rate controlled and remains asymptomatic. Dispo: admitted observation in ICU given need for diltiazem infusion Code: Full DVT: apixaban as noted above. COVID-19 COVID-19 status: Negative Quality VTE Deep Vein Thrombosis/Pulmonary Embolism Present on Admission: No
[2020-06-21 12:33] LABS: Hemoglobin A1C% w Est Avg Glu 5.6 % (4.0-6.0)
[2020-06-21 12:40] LABS: Troponin I < 0.012 ng/mL (0.01-0.034)
--- NOTE | 2020-06-21 13:02 | PC.NURSE ---
Admit Note Pt to room 228 from ER at 0830, walked self from stretcher to bed without issue, steady on feet. Alert and oriented x3. Afib RVR to the 120s after activity, decreased to 90-110s at rest. Diltiazem gtt increased to 10 mg/hr. Pt denies shortness of breath, denies pain. HR decreased to 60-70s, afib CVR. Diltiazem gtt titrated to off at about 1100. Pt was oriented to room/call light/bed/tv controls. Clothing in room closet, purse at bedside, glasses on pt. Declines to lock up any valuables in safe.
[2020-06-21 13:36] LABS: TSH w/ Reflex to FT4 0.78 uIU/mL (0.47-4.68)
--- NOTE | 2020-06-21 13:39 | PM.DS.1 ---
History of Present Illness History of Present Illness Date Patient Seen: 06/21/20 Time Patient Seen: 13:40 Chief complaint: Afib Narrative: Viry Reyes is an 84-year-old female with a past medical history of GERD who presented with palpitations that started yesterday evening while doing Sudoku. Patient denies any prior symptoms including chest pain, prior palpitations, shortness of breath, or dyspnea on exertion. Yesterday evening she was doing Sudoku puzzles at home when she is suddenly felt her heart racing and she felt like she could not breathe. She tried opening a window to breeze some cold air but this did not help and decided to come to the emergency room when it did not resolve. She denied chest pain during these episodes, shortness of breath, nausea, vomiting. She did have a sensation that her left ear was full but denied any jaw pain or arm numbness or tingling. She felt improved after medications given to her in the emergency room and by my interview she is without complaints. In the emergency room, patient was noted to be in AFib with RVR. She was given 10 mg of diltiazem with some improvement was given apixaban and then cardioversion x1 was attempted. Patient converted to normal sinus rhythm but then returned into RVR after about 1 minutes according to the ER provider. She was then put on a diltiazem infusion with some improvement in her rate and was admitted for further evaluation of her atrial for fibrillation. Laboratory evaluation revealed an unremarkable CBC, unremarkable chemistry panel, within negative troponin and negative proBNP. COVID-19 testing was negative. EKG showed atrial fibrillation without evidence of active ischemia with a rate of 100. Chest x-ray was unremarkable. Discharge Providers Provider Date of admission: 06/21/20 08:03 Discharge Date: 06/21/20 Primary care physician: Moisés Melendez DO Discharge provider: Lane Amor DO Summary Hospital Course Discharge Diagnosis: 1. Atrial fibrillation with rapid ventricular response, RVR resolved, new diganosis, unknown type. Hospital Course: Viry Reyes is an 84-year-old female with a past medical history of GERD who presented with palpitations who was admitted for atrial fibrillation with rapid ventricular response. She was initially placed on a diltiazem infusion the emergency room and admitted under observation status to the ICU. Patient was given oral metoprolol, 25 mg and was able to be quickly weaned from diltiazem infusion. Patient remained in atrial fibrillation but at a more controlled rate in the 60s to 70s. She had no further symptoms of palpitations, chest pain, or shortness of breath. Given the rapid improvement, patient was discharged on oral metoprolol and low-dose apixaban given her age and weight. Recommended follow-up with her primary care provider for an echocardiogram as an outpatient as this was unable to be performed during her brief stay and possible referral to cardiology as well. Status at Discharge Cognitive/behavioral status at discharge: oriented Functional status at discharge: independent ambulation Overall status at discharge: patient is back to baseline Exam Vital Signs (past 8 hours): - 06/21/20 05:56 06/21/20 06:03 06/21/20 06:04 Temperature 98.2 F Pulse Rate 131 H 130 H 127 H Respiratory Rate 22 28 H 20 Blood Pressure 140/86 140/86 Pulse Oximetry 98 98 97 06/21/20 06:19 06/21/20 06:30 06/21/20 06:36 Temperature Pulse Rate 128 H 109 H 101 H Respiratory Rate 17 19 13 Blood Pressure 174/76 H 129/66 Pulse Oximetry 97 96 94 06/21/20 06:50 06/21/20 06:52 06/21/20 06:56 Temperature Pulse Rate 92 H 98 H 96 H Respiratory Rate 18 10 L 16 Blood Pressure 127/72 140/67 113/53 L Pulse Oximetry 97 97 92 06/21/20 07:00 06/21/20 07:02 06/21/20 07:04 Temperature Pulse Rate 85 94 H 80 Respiratory Rate 8 L 8 L 12 Blood Pressure 94/58 L 92/51 L Pulse Oximetry 95 94 95 06/21/20 07:10 06/21/20 07:30 06/21/20 07:45 Temperature Pulse Rate 89 87 79 Respiratory Rate 21 14 12 Blood Pressure 113/64 132/56 L 125/61 Pulse Oximetry 97 94 96 06/21/20 08:00 06/21/20 08:18 06/21/20 08:33 Temperature 97.6 F Pulse Rate 96 H 102 H 113 H Respiratory Rate 12 16 Blood Pressure 119/56 L 138/65 130/87 Pulse Oximetry 96 98 06/21/20 09:00 06/21/20 09:28 06/21/20 10:00 Temperature Pulse Rate 86 74 Respiratory Rate 17 16 Blood Pressure 126/67 112/62 Pulse Oximetry 97 98 98 06/21/20 11:00 06/21/20 12:00 Temperature 98.4 F Pulse Rate 62 74 Respiratory Rate 15 17 Blood Pressure 98/59 L 99/60 Pulse Oximetry 98 95 Oxygen Delivery Method Room Air Oxygen Flow Rate 0 Narrative Exam Narrative: GENERAL APPEARANCE: Well developed, well nourished, in no acute distress. SKIN: Inspection of the skin reveals no rashes, ulcerations or petechiae. HEENT: Normocephalic atraumatic, extraocular muscles are intact, oropharynx is clear and mucous membranes are moist, neck is supple without adenopathy NECK: Supple and symmetric. There was no thyroid enlargement, and no tenderness, or masses were felt. CHEST: Normal AP diameter and normal contour without any kyphoscoliosis. LUNGS: Auscultation of the lungs revealed no wheezes, rhonchi, or rales. CARDIOVASCULAR: Irregularly irregular rhythm with normal rate without any murmurs, gallops, rubs. Peripheral pulses were 2+ and symmetric. ABDOMEN: Soft and nontender with normal bowel sounds. No ascites was noted. MUSCULOSKELETAL: There was no tenderness or effusions noted. Muscle strength and tone were normal. EXTREMITIES: No cyanosis, clubbing or edema. NEUROLOGIC: Alert and oriented x 3. Normal affect. Gait was normal. Strength is +5/5 in the Upper Extremities and Lower Extremities Bilaterally. Sensation to touch was normal. Objective Labs Result Diagrams: 06/21/20 06:00 06/21/20 06:00 Labs: Laboratory Results - last 24 hr 06/21/20 06/21/20 06/21/20 06:00 06:00 06:00 WBC 7.6 RBC 5.08 Hgb 14.7 Hct 44.3 MCV 87.2 MCH 29.0 MCHC 33.3 RDW 14.1 Plt Count 279 Neut % (Auto) 60.6 Lymph % (Auto) 25.6 [place] % (Auto) 10.2 Eos % (Auto) 2.5 Baso % (Auto) 1.1 Neut # (Auto) 4600 Lymph # (Auto) 1900 [place] # (Auto) 800 Eos # (Auto) 200 Baso # (Auto) 100 Sodium 134 L Potassium 3.8 Chloride 100 Carbon Dioxide 31 BUN 17 Creatinine 0.65 Estimated GFR > 60.0 BUN/Creatinine Ratio 26.2 H Glucose 105 Hemoglobin A1c Calcium 9.2 Magnesium Total Bilirubin 0.2 AST 34 ALT 23 Alkaline Phosphatase 97 Total Creatine Kinase 82 CK-MB (CK-2) TNP CK-MB (CK-2) Rel Index TNP Troponin I < 0.012 NT-Pro-B Natriuret Pep 106 Total Protein 6.7 Albumin 4.1 Globulin 2.6 Albumin/Globulin Ratio 1.6 Lipase 140 TSH Nasal Screen MRSA (PCR) SARS-CoV-2 (PCR) 06/21/20 06/21/20 06/21/20 06:00 07:12 09:02 WBC RBC Hgb Hct MCV MCH MCHC RDW Plt Count Neut % (Auto) Lymph % (Auto) [place] % (Auto) Eos % (Auto) Baso % (Auto) Neut # (Auto) Lymph # (Auto) [place] # (Auto) Eos # (Auto) Baso # (Auto) Sodium Potassium Chloride Carbon Dioxide BUN Creatinine Estimated GFR BUN/Creatinine Ratio Glucose Hemoglobin A1c Calcium Magnesium 2.1 Total Bilirubin AST ALT Alkaline Phosphatase Total Creatine Kinase CK-MB (CK-2) CK-MB (CK-2) Rel Index Troponin I NT-Pro-B Natriuret Pep Total Protein Albumin Globulin Albumin/Globulin Ratio Lipase TSH Nasal Screen MRSA (PCR) Negative for mrsa SARS-CoV-2 (PCR) Negative 06/21/20 06/21/20 06/21/20 12:03 12:03 12:03 WBC RBC Hgb Hct MCV MCH MCHC RDW Plt Count Neut % (Auto) Lymph % (Auto) [place] % (Auto) Eos % (Auto) Baso % (Auto) Neut # (Auto) Lymph # (Auto) [place] # (Auto) Eos # (Auto) Baso # (Auto) Sodium Potassium Chloride Carbon Dioxide BUN Creatinine Estimated GFR BUN/Creatinine Ratio Glucose Hemoglobin A1c 5.6 Calcium Magnesium Total Bilirubin AST ALT Alkaline Phosphatase Total Creatine Kinase CK-MB (CK-2) CK-MB (CK-2) Rel Index Troponin I < 0.012 NT-Pro-B Natriuret Pep Total Protein Albumin Globulin Albumin/Globulin Ratio Lipase TSH 0.78 Nasal Screen MRSA (PCR) SARS-CoV-2 (PCR) [facility] Medical History Diverticulitis GERD (gastroesophageal reflux disease) Surgical History No significant past surgical history Family History Sister Atrial fibrillation Stroke Mother Stroke Social History household members: none Smoking Status: Never smoker alcohol intake: never Discharge Plan Discharge Plan Patient Disposition: Home Provider Discharge Comment: You were admitted to the hospital with atrial fibrillation. This was quickly improved with oral medications. Given your age and gender we recommend that you start a blood thinner for stroke prevention. If this medication is too expensive please call the hospital back and week can start you on warfarin instead. Discharge orders & Medications Prescriptions: New apixaban 2.5 mg tablet 2.5 mg PO BID 30 Days Qty: 60 RF: 0 metoprolol succinate 25 mg tablet extended release 24 hr 25 mg PO BID 30 Days Qty: 60 RF: 0 Continued trazodone 50 mg Tablet 50 mg PO BEDTIME PRN (Reason: Insomnia) RF: 0 Follow up/Referrals: Moisés Melendez DO [Primary Care Provider] - Diet/Activity/Treatments Diet: Diet as Tolerated Activity: As tolerated Discharge Data Primary Care Provider: Moisés Melendez Attending Provider: Lane Amor VTE Deep Vein Thrombosis/Pulmonary Embolism Present on Admission: No
== END 2020-06-21 14:40 | disposition home or self-care (01) ==
LOC: ED 07:52 → AC 08:04 → ICU 08:31
PROVIDERS: Admitting Provider Internal Medicine; Emergency Provider Emergency Medicine; PCP Family Medicine; Referring Provider Emergency Medicine; Visit Provider Internal Medicine
DX: I48.0 Paroxysmal atrial fibrillation (principal); R00.2 Palpitations; K21.9 Gastro-esophageal reflux disease without esophagitis; Z20.822 Contact with and (suspected) exposure to COVID-19
CPT/HCPCS: 36415; 71045; 80053; 82550; 83036; 83690; 83735; 83880; 84443; 84484; 85025; 87635; 87797; 92960; 93005; 96361; 96365; 96366; 96375; 99285; C9803; G0378; J2704

== ENCOUNTER 2020-06-22 19:36 | Emergency (ER) | payer MEDICARE, SELFPAY ==
[2020-06-21 08:57] VITALS: BMI 23.0
[2020-06-22 19:45] VITALS: BP 147/77; PULSE 58; RESP 17; TEMP 37.1; O2SAT 97; BMI 23.3
[2020-06-22 20:07] LABS: Add Manual Diff / Slide Review NO; Basophils Absolute Auto 100 /uL (0-100); Basophils Percent Auto 1.5 % (0-2); Eosinophils Absolute Auto 100 /uL (0-450); Eosinophils Percent Auto 1.3 % (2-4); Hematocrit 41.1 % (36-46); Hemoglobin 14.1 g/dL (12.0-16.0); Lymphocytes Absolute Auto 1800 /uL (1100-4500); Lymphocytes Percent Auto 22.2 % (25-40); Mean Corpuscular HGB Conc 34.3 % (30-36); Mean Corpuscular Hemoglobin 29.5 PG (26-34); Monocytes Absolute Auto 600 /uL (0-900); Monocytes Percent Auto 7.5 % (3-14); Neutrophils Absolute Auto 5300 /uL (1500-7000); Neutrophils Percent Auto 67.5 % (50-75); Platelet Count 267 X10^3/uL (150-400); Red Blood Cell Count 4.78 X10^6/uL (4.0-5.2); Red Cell Distribution Width 14.1 % (11.6-14.8); White Blood Cell Count 7.9 X10^3/uL (4.5-11.0)
[2020-06-22 20:08] VITALS: PULSE 58; RESP 15; O2SAT 96
[2020-06-22 20:10] LABS: BUN Creatinine Ratio 24.6 (6-22); Blood Urea Nitrogen 17 mg/dL (7-17); Calcium 9.4 mg/dL (8.4-10.2); Carbon Dioxide 29 mmol/L (22-32); Chloride 102 mmol/L (98-107); Creatine Kinase 81 U/L (30-135); D Dimer 333 ng/mL (<230); Estimated Glomerular Filt Rate > 60.0 mL/min (>60); Glucose 99 mg/dL (80-110); HEMOLYSIS < 15 (0-50); Lactate (Lactic Acid) 0.6 mmol/L (0.7-2.1); Potassium 4.7 mmol/L (3.4-5.1); Sodium 133 mmol/L (137-145)
[2020-06-22 20:22] LABS: Troponin I < 0.012 ng/mL (0.01-0.034)
[2020-06-22 22:08] VITALS: BP 137/64; BP 140/95; BP 177/84; PULSE 75; PULSE 77; PULSE 82
--- NOTE | 2020-06-23 02:27 | ED.DIZZY ---
HPI - Dizziness General Chief Complaint: Dizziness Stated Complaint: dizziness and nausea Time Seen by Provider: 06/22/20 19:36 Source: patient Mode of arrival: EMS Limitations: no limitations History of Present Illness HPI Narrative: 84-year-old female nonsmoker with history of atrial fibrillation presents by EMS for evaluation of dizziness, nausea and fatigue since starting a new medication yesterday. She was brought by EMS 2 days ago and found to have a newly discovered atrial fibrillation. She underwent procedural sedation and electrical cardioversion in the emergency department which was successful, but only briefly. She ended up being admitted into the hospital on a Cardizem drip upon discharge started on metoprolol. When she woke up this morning she was very lightheaded and fell into the wall but did not injure herself. Over the course of the day she continued to feel poorly, as stated above. He denies any blurred vision or focal neurologic finding. She denies any chest pain or shortness of breath. She denies abdominal pain, dysuria, frequency or urgency. She has no known exposure to COVID complaint: dizziness and lightheadedness Onset (ago): hour(s) Timing: gradual onset Description: lightheadedness History of similar episodes: No History of trauma: No Severity: mild Relieving factors: nothing Exacerbating factors: exertion Related Data Home Medications Medication Instructions Recorded Confirmed trazodone 50 mg PO BEDTIME PRN 06/21/20 06/21/20 Previous Rx's Medication Instructions Recorded apixaban 2.5 mg PO BID 30 Days #60 tab 06/21/20 metoprolol succinate 25 mg PO BID 30 Days #60 tab 06/21/20 Allergies Allergy/AdvReac Type Severity Reaction Status Date / Time No Known Drug Allergies Allergy Verified 12/30/18 12:01 Review of Systems Constitutional Constitutional: Denies chills, Reports fatigue, Denies fever(s), Denies frequent falls, Reports lethargy and Reports weakness Eyes Eyes: Denies change in vision, Denies eye discharge, Denies irritation and Denies loss of vision ENT Ears, Nose, Mouth, and Throat: Denies change in voice, Denies dizziness, Denies neck pain, Denies sore throat and Denies throat swelling Cardiovascular Cardiovascular: Denies chest pain, Denies irregular heart rhythm, Denies lightheadedness, Denies palpitations, Denies dyspnea, Denies dyspnea on exertion and Denies orthopnea Respiratory Respiratory: Denies cough, Denies dyspnea, Denies dyspnea on exertion and Denies wheezing Gastrointestinal Gastrointestinal: Denies abdominal pain, Denies change in bowel habits, Denies diarrhea, Denies nausea and Denies vomiting Musculoskeletal Musculoskeletal: Denies neck pain and Denies numbness Integumentary/Breasts Skin/Breast: Denies pruritus, Denies erythema, Denies rash and Denies wounds Neurologic Neurologic: Denies behavioral changes, Denies confusion, Denies dizziness, Denies frequent falls, Denies loss of vision, Denies numbness and Reports weakness Psychiatric Psychiatric: Denies anxiety, Denies behavioral changes, Denies confusion, Denies depression, Denies homicidal ideation and Denies suicidal ideation Endocrine Endocrine: Reports fatigue, Denies flushing and Denies palpitations Hematologic/Lymphatic Hematologic/Lymphatic: Denies easy bruising Allergic/Immunologic Allergic/Immunologic: Denies urticaria, Denies throat swelling and Denies wheezing Patient History Medical History Diverticulitis GERD (gastroesophageal reflux disease) Surgical History No significant past surgical history Family History Sister Atrial fibrillation Stroke Mother Stroke Social History household members: none Smoking Status: Never smoker alcohol intake: never Smoking Status: Never smoker Substance Use Type: does not use Exam Narrative Exam Narrative: GENERAL: [Anxious 84] year old patient appears stated age. Well-nourished, well-developed patient, in mild distress. HEAD: Atraumatic. Normocephalic. EYES: Pupils equal round and reactive. Extraocular motions intact. No scleral icterus. No injection or drainage. ENT: Nose without bleeding, purulent drainage. Throat without erythema, tonsillar hypertrophy or exudate. Airway patent. NECK: Trachea midline. Non tender CARDIOVASCULAR: Mild bradycardia and regular rhythm without murmurs, gallops, or rubs. RESPIRATORY: Clear to auscultation. Breath sounds equal bilaterally. No wheezes, rales, or rhonchi. GASTROINTESTINAL: Abdomen soft, non-tender, nondistended. EXTREMITIES: No edema or joint tenderness. BACK: Nontender without deformity or crepitance. No flank tenderness. NEURO: AOx3. SKIN: No rash or erythema of visible areas Initial Vital Signs Initial Vital Signs: Vital Signs Temperature 98.8 F 06/22/20 19:45 Pulse Rate 58 L 06/22/20 19:45 Respiratory Rate 17 06/22/20 19:45 Blood Pressure 147/77 H 06/22/20 19:45 Pulse Oximetry 97 06/22/20 19:45 Course Course Course Narrative: Patient observed for few hours. She feels much better over the duration of her visit and is reassured after our discussions. Her evaluation is very reassuring today. I discussed with her the likelihood that metoprolol is making her feel fatigued and slowing her heart rate a bit more than she is comfortable with. She is taking 25 mg twice daily and I encouraged her to dropped to 12.5 mg twice daily starting tomorrow. Orders Ordered: ED Orders 06/22/20 19:30 EKG-12 Lead Stat 06/22/20 19:50 Basic Metabolic Panel Stat Complete Blood Count AUTO DIFF Stat D Dimer Stat Lactate (Lactic Acid) Stat Troponin & CK Cardiac Panel Stat Vital Signs Vital signs: Vital Signs - 8 hr 06/22/20 19:45 06/22/20 20:08 06/22/20 22:08 Temperature 98.8 F Pulse Rate 58 L 58 L Pulse Rate [Orthostatic Lying] 77 Pulse Rate [Orthostatic Sitting] 75 Pulse Rate [Orthostatic Standing] 82 Respiratory Rate 17 15 Blood Pressure 147/77 H Blood Pressure [Orthostatic Lying] 140/95 H Blood Pressure [Orthostatic Sitting] 137/64 Blood Pressure [Orthostatic Standing] 177/84 H Pulse Oximetry 97 96 MDM - Dizziness Lab Data Result diagrams: 06/22/20 19:50 06/22/20 19:50 Labs: Lab Results 06/22/20 06/22/20 06/22/20 Range/Units 19:50 19:50 19:50 WBC 7.9 (4.5-11.0) X10^3/uL RBC 4.78 (4.0-5.2) X10^6/uL Hgb 14.1 (12.0-16.0) g/dL Hct 41.1 (36-46) % MCV 86.0 (80-100) fL MCH 29.5 (26-34) PG MCHC 34.3 (30-36) % RDW 14.1 (11.6-14.8) % Plt Count 267 (150-400) X10^3/uL Neut % (Auto) 67.5 (50-75) % Lymph % (Auto) 22.2 L (25-40) % [place] % (Auto) 7.5 (3-14) % Eos % (Auto) 1.3 L (2-4) % Baso % (Auto) 1.5 (0-2) % Neut # (Auto) 5300 (2360-5691) /uL Lymph # (Auto) 1800 (9958-5008) /uL [place] # (Auto) 600 (0-900) /uL Eos # (Auto) 100 (0-450) /uL Baso # (Auto) 100 (0-100) /uL D-Dimer 333 H (<230) ng/mL Sodium 133 L (137-145) mmol/L Potassium 4.7 (3.4-5.1) mmol/L Chloride 102 (98-107) mmol/L Carbon Dioxide 29 (22-32) mmol/L BUN 17 (7-17) mg/dL Creatinine 0.69 (0.52-1.04) mg/dL Estimated GFR > 60.0 (>60) mL/min BUN/Creatinine Ratio 24.6 H (6-22) Glucose 99 (80-110) mg/dL Lactate (0.7-2.1) mmol/L Calcium 9.4 (8.4-10.2) mg/dL Total Creatine Kinase 81 (30-135) U/L CK-MB (CK-2) TNP CK-MB (CK-2) Rel Index TNP Troponin I < 0.012 (0.01-0.034) ng/mL 06/22/20 Range/Units 19:50 WBC (4.5-11.0) X10^3/uL RBC (4.0-5.2) X10^6/uL Hgb (12.0-16.0) g/dL Hct (36-46) % MCV (80-100) fL MCH (26-34) PG MCHC (30-36) % RDW (11.6-14.8) % Plt Count (150-400) X10^3/uL Neut % (Auto) (50-75) % Lymph % (Auto) (25-40) % [place] % (Auto) (3-14) % Eos % (Auto) (2-4) % Baso % (Auto) (0-2) % Neut # (Auto) (5952-0119) /uL Lymph # (Auto) (0307-7955) /uL [place] # (Auto) (0-900) /uL Eos # (Auto) (0-450) /uL Baso # (Auto) (0-100) /uL D-Dimer (<230) ng/mL Sodium (137-145) mmol/L Potassium (3.4-5.1) mmol/L Chloride (98-107) mmol/L Carbon Dioxide (22-32) mmol/L BUN (7-17) mg/dL Creatinine (0.52-1.04) mg/dL Estimated GFR (>60) mL/min BUN/Creatinine Ratio (6-22) Glucose (80-110) mg/dL Lactate 0.6 L (0.7-2.1) mmol/L Calcium (8.4-10.2) mg/dL Total Creatine Kinase (30-135) U/L CK-MB (CK-2) CK-MB (CK-2) Rel Index Troponin I (0.01-0.034) ng/mL Discharge Plan Departure Patient Disposition: Home Clinical Impression: Atrial fibrillation Qualifiers: Atrial fibrillation type: paroxysmal Qualified Code(s): I48.0 - Paroxysmal atrial fibrillation Medication reaction Qualifiers: Encounter type: initial encounter Qualified Code(s): T50.905A - Adverse effect of unspecified drugs, medicaments and biological substances, initial encounter Instructions: DI for Dizziness-Nonvertigo Activity Restrictions/Additional Instructions: *You have been diagnosed with [atrial fibrillation and likely medication reaction to metoprolol] *What to do: *Take medications as directed: Starting tomorrow please take metoprolol 12.5 mg twice daily this is half the dose that you were initially prescribed. Additionally, please get the prescription for the anticoagulant filled. You can discuss your need for ongoing anticoagulation (beyond 3 weeks) with your digital marketing consultant. *Follow up with your primary care provider in 2-3 days, call for an appointment. Let them know you were seen in the Emergency Department and that we ask that you be seen in follow up *Return to ER if you should have any new, worsening or concerning symptoms Prescriptions: No Action trazodone 50 mg Tablet 50 mg PO BEDTIME PRN (Reason: Insomnia) RF: 0 apixaban 2.5 mg tablet 2.5 mg PO BID 30 Days Qty: 60 RF: 0 metoprolol succinate 25 mg tablet extended release 24 hr 25 mg PO BID 30 Days Qty: 60 RF: 0 Referrals: Ginny Parker MD [Physician] - Moisés Melendez DO [Primary Care Provider] -
== END 2020-06-22 23:00 | disposition home or self-care (01) ==
PROVIDERS: Emergency Provider Emergency Medicine; PCP Family Medicine
DX: I48.0 Paroxysmal atrial fibrillation (principal); T50.905A Adverse effect of unspecified drugs, medicaments and biological substances, initial encounter; R42 Dizziness and giddiness; R11.0 Nausea; R53.83 Other fatigue
CPT/HCPCS: 36415; 80048; 82550; 83605; 84484; 85025; 85379; 93005; 93010; 99283; 99284

== ENCOUNTER → 2021-11-14 13:56 | Outpatient (CLI) | payer MEDICARE, SELFPAY ==
[2020-06-21 08:57] VITALS: BMI 23.0
--- NOTE | 2021-11-14 | DI.MRI.S_ITS ---
PROCEDURE: MR LUMBAR SPINE WO CON INDICATIONS: Radiculopathy, lumbar region TECHNIQUE: Noncontrast sagittal T1 spin echo and T2 fast echo, sagittal STIR, and T2 fast spin echo through the lumbar spine. In cases with scoliosis, additional coronal T2 fast spin echo may be performed. COMPARISON: None. FINDINGS: Exaggerated lumbar lordosis. Retrolisthesis of L1 on L2 measuring 5 mm. Anterolisthesis of L3 on L4 measuring 2-3 mm. Anterolisthesis of L4 on L5 measuring 4 mm. Vertebral body heights maintained. Disc desiccation and disc height loss at every level in the lumbar spine. At T11-T12, there is disc desiccation and disc height loss with degenerative endplate irregularity and discogenic marrow edema along the opposing endplates. This is a potential source of nonradicular axial back pain. Normal position and appearance of the conus. Prevertebral and paraspinous soft tissues are within normal limits other than some fatty atrophy of the lower paraspinous musculature. T11-T12: Diffuse disc bulge flattens the ventral thecal sac and may slightly flatten the distal thoracic cord. Foraminal components of the disc bulge and facet hypertrophy combine to produce mild bilateral neural foraminal stenosis. T12-L1: No spinal canal or neural foraminal stenosis. L1-L2: No spinal canal stenosis. Foraminal components of a diffuse disc bulge and facet hypertrophy combine to produce mild bilateral neural foraminal stenosis. L2-L3: Diffuse disc bulge flattens the ventral thecal sac without mass effect upon the traversing L3 nerve roots. Foraminal components of the disc bulge and facet hypertrophy combine to produce mild bilateral neural foraminal stenosis. L3-L4: Diffuse disc bulge flattens the ventral thecal sac without mass effect upon the traversing L4 nerve roots. Mild bilateral neural foraminal narrowing due to foraminal components of the disc bulge and facet hypertrophy. L4-L5: Diffuse disc bulge and a superimposed broad-based posterior disc protrusion with mild displacement of the descending L5 nerve roots in both subarticular zones. Mild bilateral neural foraminal narrowing due to foraminal components of the disc bulge and listhesis of L4 on L5. L5-S1: Diffuse disc bulge with mild displacement of the descending S1 nerve roots in both subarticular zones. Mild bilateral neural foraminal narrowing due to foraminal components of the disc bulge. IMPRESSION: Multilevel listhesis as described above. Discogenic marrow edema at T11-T12, a potential source of nonradicular axial back pain. [id number] multilevel multifactorial degenerative changes with areas of potential focal nerve root impingement as discussed above. Correlate for any corresponding radicular symptoms. Dictated by: Don Colon M.D. on 11/14/2021 at 15:45 Approved by: Don Colon M.D. on 11/14/2021 at 15:51
== END ==
PROVIDERS: PCP Internal Medicine; Referring Provider Physical Medicine & Rehabilitation Pain Medicine; Visit Provider Physical Medicine & Rehabilitation Pain Medicine
DX: M47.26 Other spondylosis with radiculopathy, lumbar region (principal); M43.16 Spondylolisthesis, lumbar region
CPT/HCPCS: 72148

== ENCOUNTER → 2022-09-03 16:53 | Outpatient (CLI) | payer MEDICARE, SELFPAY ==
[2020-06-21 08:57] VITALS: BMI 23.0
--- NOTE | 2022-09-03 16:55 | DI.RAD.S_ITS ---
PROCEDURE: XR HIP W PEL IF DONE RT 2V INDICATIONS: right hip pain TECHNIQUE: AP pelvis with lateral view(s) of the right hip(s). COMPARISON: None. FINDINGS: Bones: No fractures or dislocations. Moderate to severe right hip joint osteoarthritic changes are seen. No evidence of avascular necrosis of femoral head. Pelvic ring appears intact. No suspicious bony lesions. Soft tissues: The visualized bowel gas pattern is normal. No suspicious soft tissue calcifications. 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 No hip fracture or dislocation. No evidence of avascular necrosis. Dictated by: Alfred Patel M.D. on 09/03/2022 at 17:38 Approved by: Alfred Patel M.D. on 09/03/2022 at 17:39
== END ==
PROVIDERS: PCP Family Medicine; Referring Provider Family Medicine; Visit Provider Family Medicine
DX: G89.29 Other chronic pain (principal); M25.551 Pain in right hip; M16.11 Unilateral primary osteoarthritis, right hip
CPT/HCPCS: 73502

== ENCOUNTER → 2022-09-29 07:59 | Outpatient (CLI) | payer MEDICARE, SELFPAY ==
[2020-06-21 08:57] VITALS: BMI 23.0
[2022-09-29 09:25] LABS: Add Manual Diff / Slide Review NO; Basophils Absolute Auto 100 /uL (0-100); Basophils Percent Auto 2.3 % (0-2); Eosinophils Absolute Auto 200 /uL (0-450); Eosinophils Percent Auto 3.9 % (2-4); Hematocrit 40.5 % (36-46); Hemoglobin 13.9 g/dL (12.0-16.0); Lymphocytes Absolute Auto 2000 /uL (1100-4500); Lymphocytes Percent Auto 31.2 % (25-40); Mean Corpuscular HGB Conc 34.3 % (30-36); Mean Corpuscular Hemoglobin 29.7 PG (26-34); Mean Corpuscular Volume 86.7 fL (80-100); Monocytes Absolute Auto 600 /uL (0-900); Monocytes Percent Auto 9.3 % (3-14); Neutrophils Absolute Auto 3400 /uL (1500-7000); Neutrophils Percent Auto 53.3 % (50-75); Platelet Count 282 X10^3/uL (150-400); Red Blood Cell Count 4.67 X10^6/uL (4.0-5.2); Red Cell Distribution Width 13.4 % (11.6-14.8); White Blood Cell Count 6.4 X10^3/uL (4.5-11.0)
[2022-09-29 09:46] LABS: Alanine Aminotransferase 22 IU/L (<35); Albumin Globulin Ratio 1.5 (1.0-2.8); Alkaline Phosphatase 95 U/L (38-126); Aspartate Aminotransferase 33 IU/L (14-36); BUN Creatinine Ratio 18.8 (6-22); Bilirubin Total 0.6 mg/dL (0.2-1.3); Blood Urea Nitrogen 15 mg/dL (7-17); Calcium 9.2 mg/dL (8.4-10.2); Carbon Dioxide 29 mmol/L (22-32); Chloride 103 mmol/L (98-107); Cholesterol 233 mg/dL (140-199); Estimated Glomerular Filt Rate > 60 mL/min (>60); Globulin 2.7 g/dL (1.7-4.1); Glucose 96 mg/dL (80-110); HDL Cholesterol 59 mg/dL (40-60); HEMOLYSIS < 15 (0-50); LDL Cholesterol Calculated 160 mg/dL (<100); Potassium 4.1 mmol/L (3.4-5.1); Sodium 137 mmol/L (137-145); Total Protein 6.7 g/dL (6.3-8.2); Triglycerides 72 mg/dL (35-150)
[2022-09-29 10:29] LABS: Creatinine Urine Random 80.8 mg/dL
[2022-09-29 10:34] LABS: Microalbumin Urine Random < 0.6 mg/dL (0-1.6); TSH w/ Reflex to FT4 1.44 uIU/mL (0.47-4.68)
== END ==
PROVIDERS: Family Provider Family Medicine; PCP Family Medicine; Referring Provider Family Medicine; Visit Provider Family Medicine
DX: I10 Essential (primary) hypertension (principal); G47.00 Insomnia, unspecified; I48.91 Unspecified atrial fibrillation
CPT/HCPCS: 36415; 80053; 80061; 82043; 82570; 84443; 85025

== ENCOUNTER → 2022-12-08 15:06 | Outpatient (CLI) | payer MEDICARE, SELFPAY ==
[2022-11-23 14:56] VITALS: BMI 23.0
[2022-12-08 17:06] LABS: Appearance Urine UA CLEAR; Bilirubin Urine UA NEGATIVE (NEGATIVE); Color Urine UA YELLOW; Glucose Urine UA NEGATIVE (Negative); Ketones Urine UA NEGATIVE (NEGATIVE); Leukocyte Esterase Urine UA TRACE (NEGATIVE); Nitrite Urine UA NEGATIVE (Negative); Occult Blood Urine UA 3+ (Negative); Protein Urine UA NEGATIVE (Negative); Specific Gravity Urine UA <=1.005 (1.000-1.035); Urobilinogen Urine UA 0.2 E.U./dL (0.2)
[2022-12-08 17:23] LABS: pH Urine UA 5.5 (4.5-8.0)
[2022-12-08 17:24] LABS: Bacteria Urine None Seen; RBC Urine 1-5/HPF (0-5/HPF); Squamous Epithelial Cell Urine 0-1 /HPF (0-5/HPF); WBC Urine 5-10/HPF (0-5/HPF)
[2022-12-08 17:29] LABS: Culture Indicated Urine Specimen Cultured
== END ==
PROVIDERS: Family Provider Family Medicine; PCP Family Medicine; Visit Provider Family Medicine
DX: R30.0 Dysuria (principal)
CPT/HCPCS: 81001; 87086

== ENCOUNTER → 2022-12-14 13:37 | Outpatient (CLI) | payer MEDICARE, SELFPAY ==
[2022-11-23 14:56] VITALS: BMI 23.0
== END ==
PROVIDERS: Family Provider Family Medicine; PCP Family Medicine; Visit Provider Nurse Practitioner Family
DX: R30.0 Dysuria (principal)
CPT/HCPCS: 87077; 87086; 87186

== ENCOUNTER → 2023-02-04 13:33 | Outpatient (CLI) | payer MEDICARE, SELFPAY ==
[2022-11-23 14:56] VITALS: BMI 23.0
[2023-02-04 14:16] LABS: Influenza A - CEPHEID Flu A NEGATIVE (NEGATIVE); Influenza B - CEPHEID Flu B NEGATIVE (NEGATIVE); Respiratory Syncytial Virus Negative (Negative)
[2023-02-04 14:33] LABS: COVID-19 CEPHEID 4-PLEX PCR Negative (Negative)
== END ==
PROVIDERS: Family Provider Family Medicine; PCP Family Medicine; Visit Provider Nurse Practitioner Family
DX: R05.1 Acute cough (principal)
CPT/HCPCS: 0241U

== ENCOUNTER 2023-02-21 21:12 | Emergency (ER) | payer MEDICARE, SELFPAY ==
[2022-11-23 14:56] VITALS: BMI 23.0
[2023-02-21 21:43] VITALS: BP 142/75; PULSE 76; RESP 16; TEMP 37.2; O2SAT 97; BMI 23.0
[2023-02-21 22:58] LABS: Influenza A - CEPHEID Flu A NEGATIVE (NEGATIVE); Influenza B - CEPHEID Flu B NEGATIVE (NEGATIVE); Respiratory Syncytial Virus Negative (Negative)
[2023-02-21 22:59] LABS: COVID-19 CEPHEID 4-PLEX PCR Negative (Negative)
[2023-02-22 01:26] VITALS: PULSE 64; O2SAT 96
[2023-02-22 01:30] VITALS: PULSE 62; O2SAT 96
[2023-02-22 02:00] VITALS: PULSE 58; O2SAT 96
[2023-02-22 02:30] VITALS: PULSE 56; O2SAT 95
[2023-02-22 03:00] VITALS: PULSE 61; O2SAT 96
--- NOTE | 2023-02-22 03:47 | ED_ITS ---
HPI - URI/Sore Throat General Chief Complaint: Upper Respiratory Symptoms Stated Complaint: flu like symptoms Time Seen by Provider: 02/22/23 02:36 Source: patient and EMS Mode of arrival: EMS History of Present Illness HPI Narrative: Patient is a sumeet 87-year-old female history of paroxysmal atrial fibrillation presenting today with ongoing head pressure for at least a month. She sometimes feels dizzy while walking. Denies any numbness tingling or weakness no difficulty speaking or facial droop She was told she had upper respiratory infection but tested negative. He was seen by a walk-in clinic and by her primary care provider thought to have sinusitis started on Bactrim she was also told to start Flonase. She reports that none of these things are working she denies fever or chills. She has no real neck pain. No chest pain palpitations or shortness of breath. She is not having any sort of cough it is all sort of head pressure Related Data Previous Rx's Medication Instructions Recorded diltiazem HCl 120 mg 120 mg PO DAILY #90 caps 09/03/22 capsule,extended release 24 hr, controlled (DILT-XR) trazodone 50 mg tablet 50 mg PO BEDTIME PRN Insomnia #60 12/08/22 tabs fluticasone propionate 50 2 spray intranasal BEDTIME #16 02/15/23 mcg/actuation nasal grams spray,suspension sulfamethoxazole 800 1 tab PO BID #28 tabs 02/15/23 mg-trimethoprim 160 mg tablet Allergies Allergy/AdvReac Type Severity Reaction Status Date / Time alendronate sodium AdvReac Mild Verified 02/15/23 11:30 [From Fosamax] ciprofloxacin [From Cipro] AdvReac Mild Verified 02/15/23 11:30 estrogens, conjugated AdvReac Mild Verified 02/15/23 11:30 [From Premarin] olopatadine [From Patanase] AdvReac Mild Verified 02/15/23 11:30 rivaroxaban [From Xarelto] AdvReac Mild Rash Verified 02/15/23 11:30 Review of Systems Review of Systems ROS Unobtainable: All systems reviewed & are unremarkable except as noted in HPI and below Patient History Medical History Osteoarthritis of right hip Right hip pain Hypertension Insomnia GERD (gastroesophageal reflux disease) Atrial fibrillation with rapid ventricular response Diverticulitis Surgical History No significant past surgical history Family History Sister Atrial fibrillation Stroke Mother Stroke Social History household members: none Smoking Status: Never smoker alcohol intake: never Smoking Status: Never smoker Substance Use Type: does not use Exam Initial Vital Signs Initial Vital Signs: Vital Signs Temperature 98.9 F 02/21/23 21:43 Pulse Rate 76 02/21/23 21:43 Respiratory Rate 16 02/21/23 21:43 Blood Pressure 142/75 H 02/21/23 21:43 Pulse Oximetry 97 02/21/23 21:43 Oxygen Delivery Method Room Air 02/21/23 21:43 GENERAL: Alert pleasant 87-year-old female HEENT: Head atraumatic,EOMI, pupils reactive, face symmetric, tympanic membranes visualized non erythematous no bulging CARDIOVASCULAR: Regular rate and rhythm without murmurs, rubs or gallops. RESPIRATORY: Breath sounds equal bilaterally, no wheezes rales or rhonchi. ABDOMEN: Soft, nontender. Normoactive bowel sounds all 4 quadrants. No guarding or rebound. EXTREMITIES: Normal range of motion, no clubbing or edema. Neurovascularly intact NEUROLOGICAL: Alert and oriented x4.Normal gait and speech. Cranial nerves II through XII grossly intact. Good idhwry-vy-dnzw, good znlw-oj-yhqx, strength equal bilaterally, no dysarthria or aphasia, sensation in tact to soft touch bilaterally, no visual changes, no facial droop SKIN: Warm, dry, no laceration, no petechiae, no rashes or lesions. Scores NIH Stroke Scale Level of Conciousness: Alert, keenly responsive Ask month/age: Answers both questions correctly. Open/close eyes, close hand: Performs both tasks correctly Best gaze horizontal: Normal Visual sheppard: No visual loss Facial palsy: Normal symetrical movement Left arm drift: No drift for full 10 sec Right arm drift: No drift for full 10 sec Left leg drift: No drift for full 5 sec Right leg drift: No drift for full 5 sec Limb ataxia: Absent Sensory on face/arms/legs: Normal, no sensory loss Best language: No aphasia, normal Dysarthria: Normal Extinction or inattention: No abnormality Total NIH Stroke scale score: 0 Course Orders Ordered: ED Orders 02/21/23 22:10 Covid-19 + FLU A/B + RSV - PCR Stat 02/22/23 03:48 CT head/brain wo con Stat 02/22/23 03:58 CBC Auto Diff [Complete Blood Count AUTO DIFF] Stat CMP [Comprehensive Metabolic Panel] Stat Discontinued Medications Ketorolac Tromethamine (Ketorolac 30 Mg/Ml Vial) 15 mg IV NOW ONE Stop: 02/22/23 03:49 Last Admin: 02/22/23 03:58 Dose: 15 mg Documented By: KASIA Vital Signs Vital signs: Vital Signs - 8 hr 02/22/23 01:26 02/22/23 01:30 02/22/23 02:00 Pulse Rate 64 62 58 L Pulse Oximetry 96 96 96 02/22/23 02:30 02/22/23 03:00 Pulse Rate 56 L 61 Pulse Oximetry 95 96 MDM - URI/Sore Throat Lab Data 02/22/23 03:58 02/22/23 03:58 Labs: Lab Results 02/21/23 02/22/23 Range/Units 22:10 03:58 WBC 5.3 (4.5-11.0) X10^3/uL RBC 4.67 (4.0-5.2) X10^6/uL Hgb 13.6 (12.0-16.0) g/dL Hct 39.2 (36-46) % MCV 83.9 (80-100) fL MCH 29.1 (26-34) PG MCHC 34.7 (30-36) % RDW 13.6 (11.6-14.8) % Plt Count 284 (150-400) X10^3/uL Neut % (Auto) 46.2 L (50-75) % Lymph % (Auto) 38.6 (25-40) % Brooke % (Auto) 12.1 (3-14) % Eos % (Auto) 1.6 L (2-4) % Baso % (Auto) 1.5 (0-2) % Neut # (Auto) 2500 (0201-4171) /uL Lymph # (Auto) 2100 (4956-2825) /uL Brooke # (Auto) 600 (0-900) /uL Eos # (Auto) 100 (0-450) /uL Baso # (Auto) 100 (0-100) /uL Sodium 136 L (137-145) mmol/L Potassium 3.8 (3.4-5.1) mmol/L Chloride 102 (98-107) mmol/L Carbon Dioxide 27 (22-32) mmol/L BUN 13 (7-17) mg/dL Creatinine 0.86 (0.52-1.04) mg/dL Estimated GFR > 60 (>60) mL/min BUN/Creatinine Ratio 15.1 (6-22) Glucose 96 (80-110) mg/dL Calcium 8.9 (8.4-10.2) mg/dL Total Bilirubin 0.4 (0.2-1.3) mg/dL AST 28 (14-36) IU/L ALT 27 (<35) IU/L Alkaline Phosphatase 85 (38-126) U/L Total Protein 6.4 (6.3-8.2) g/dL Albumin 3.7 (3.5-5.0) g/dL Globulin 2.7 (1.7-4.1) g/dL Albumin/Globulin Ratio 1.4 (1.0-2.8) SARS-CoV-2 (PCR) Negative (Negative) Influenza A (RT-PCR) Flu a negative (NEGATIVE) Influenza B (RT-PCR) Flu b negative (NEGATIVE) RSV (PCR) Negative (Negative) Urine Dip Bedside Urine Glucose Negative Bedside Urine Bilirubin - Negative Bedside Urine Ketone - Negative Urine Specific [place] 1.010 Bedside Urine Occult Blood - Negative Bedside Urine pH 7.0 Bedside Urine Protein - Negative Bedside Urine Urobilinogen - Negative Bedside Urine Nitrite - Negative Bedside Urine Leukocytes - Negative Esterase Imaging Data CT scan - head: Radiologist's Impression: No intracranial finding MDM Narrative Medical decision making narrative: Patient sumeet 87-year-old female presents today with ongoing head pressure dizziness. It has been ongoing for 3-4 weeks. Been to a walk-in clinic and PCP without any results. However she just started Bactrim last week for her sinusitis and still has not had any improvement. She feels dizzy at times but no focal deficits NIH stroke scale 0. Head CT is negative. Blood work has been reviewed overall reassuring without anemia leukocytosis or AUBREE. At this time probably a viral syndrome she again tested negative on the viral panel. She is afebrile her neck is supple there are no meningeal signs I do not think she needs a lumbar puncture at this time. Recommend that she finish her antibiotics as previously prescribed. Discharge Plan Departure Patient Disposition: Home Clinical Impression: Viral illness Instructions: Common Cold, DI for Viral Syndrome Activity Restrictions/Additional Instructions: *You have been diagnosed with viral syndrome *What to do: At this time your head CT and blood work are overall reassuring. You likely do have some type of viral syndrome. *Continue to take medications as directed Finish antibiotics and take medication as prescribed *Follow up with your primary care provider in 2-3 days or call [phone] *Return to ER if you should have falling chest pain palpitations shortness of breath or any new, worsening or concerning symptoms Prescriptions: No Action trazodone 50 mg tablet 50 mg PO BEDTIME PRN (Reason: Insomnia) Qty: 60 1RF diltiazem HCl [DILT-XR] 120 mg capsule,ext.rel 24h degradable 120 mg PO DAILY Qty: 90 0RF fluticasone propionate 50 mcg/actuation spray,suspension 2 spray intranasal BEDTIME Qty: 16 0RF Rx Instructions: administer into each nostril sulfamethoxazole-trimethoprim 800-160 mg tablet 1 tab PO BID Qty: 28 1RF Referrals: Blanco Lane MD [Primary Care Provider] - Stand Alone Forms: Patient Portal/API
--- NOTE | 2023-02-22 03:48 | DI.CT.S_ITS ---
PROCEDURE: CT HEAD/BRAIN WO CON INDICATIONS: Headache; dizziness; flu-like symptoms x4 weeks. TECHNIQUE: Noncontrast 4.5 mm thick angled axial sections acquired from the foramen magnum to the vertex, with coronal and sagittal reformats. For radiation dose reduction, the following was used: automated exposure control, adjustment of mA and/or kV according to patient size. COMPARISON: None. FINDINGS: Image quality: Excellent. CSF spaces: Basal cisterns are patent. No extra-axial fluid collections. Ventricles are normal in size and shape. Brain: No midline shift. No intracranial masses or hemorrhage. No area of hypodensity in a large vascular distribution to suggest acute infarction. Periventricular hypodensity consistent with chronic microvascular ischemic change. Age-related parenchymal loss. Skull and face: Calvarium and visualized facial bones are intact, without suspicious lesions. Sinuses: Visualized sinuses and mastoids are clear. IMPRESSION: No acute intracranial abnormality. This report is concordant with the overnight preliminary interpretation. Dictated by: Cleve Alvarez M.D. on 02/22/2023 at 8:27 Approved by: Cleve Alvarez M.D. on 02/22/2023 at 8:30
[2023-02-22] MEDS: KETOROLAC 30 MG/ML VIAL 15 MG IV (03:58)
[2023-02-22 04:28] LABS: Add Manual Diff / Slide Review NO; Basophils Absolute Auto 100 /uL (0-100); Basophils Percent Auto 1.5 % (0-2); Eosinophils Absolute Auto 100 /uL (0-450); Eosinophils Percent Auto 1.6 % (2-4); Hematocrit 39.2 % (36-46); Hemoglobin 13.6 g/dL (12.0-16.0); Lymphocytes Absolute Auto 2100 /uL (1100-4500); Lymphocytes Percent Auto 38.6 % (25-40); Mean Corpuscular HGB Conc 34.7 % (30-36); Mean Corpuscular Hemoglobin 29.1 PG (26-34); Mean Corpuscular Volume 83.9 fL (80-100); Monocytes Absolute Auto 600 /uL (0-900); Monocytes Percent Auto 12.1 % (3-14); Neutrophils Absolute Auto 2500 /uL (1500-7000); Neutrophils Percent Auto 46.2 % (50-75); Platelet Count 284 X10^3/uL (150-400); Red Blood Cell Count 4.67 X10^6/uL (4.0-5.2); Red Cell Distribution Width 13.6 % (11.6-14.8); White Blood Cell Count 5.3 X10^3/uL (4.5-11.0)
[2023-02-22 04:40] LABS: Alanine Aminotransferase 27 IU/L (<35); Albumin 3.7 g/dL (3.5-5.0); Albumin Globulin Ratio 1.4 (1.0-2.8); Alkaline Phosphatase 85 U/L (38-126); Aspartate Aminotransferase 28 IU/L (14-36); BUN Creatinine Ratio 15.1 (6-22); Bilirubin Total 0.4 mg/dL (0.2-1.3); Blood Urea Nitrogen 13 mg/dL (7-17); Calcium 8.9 mg/dL (8.4-10.2); Carbon Dioxide 27 mmol/L (22-32); Chloride 102 mmol/L (98-107); Estimated Glomerular Filt Rate > 60 mL/min (>60); Globulin 2.7 g/dL (1.7-4.1); Glucose 96 mg/dL (80-110); HEMOLYSIS < 15 (0-50); Potassium 3.8 mmol/L (3.4-5.1); Sodium 136 mmol/L (137-145); Total Protein 6.4 g/dL (6.3-8.2)
== END 2023-02-22 06:17 | disposition home or self-care (01) ==
PROVIDERS: Emergency Provider Emergency Medicine; Family Provider Family Medicine; PCP Family Medicine
DX: B34.9 Viral infection, unspecified (principal); R42 Dizziness and giddiness; Z20.822 Contact with and (suspected) exposure to COVID-19
CPT/HCPCS: 0241U; 36415; 70450; 80053; 81003; 85025; 99284; J1885

== ENCOUNTER 2023-02-26 12:15 | Outpatient (RCR) | payer MEDICARE, SELFPAY ==
[2020-06-21 08:57] VITALS: BMI 23.0
--- NOTE | 2022-10-26 13:30 | PT.OIE ---
Current Diagnoses Unilateral primary osteoarthritis, right hip (10/26/22) Pain in right hip (10/26/22) Pain in unspecified hip (10/26/22) Stiffness of right hip, not elsewhere classified (10/26/22) Past Medical History (This Medical Record has been edited. Action required.) Atrial fibrillation with rapid ventricular response Diverticulitis GERD (gastroesophageal reflux disease) Hypertension Insomnia Past Surgical History (This Medical Record has been edited. Action required.) No significant past surgical history Visit Care Team Role Provider Type Blanco Lane MD Attending Provider Physician Family Provider Primary Care Provider Referring Provider Specialty: Family Practice Address: [address] [place] [address] Email: [email or web address] Physical Therapy Initial Evaluation PT-OP-A Visit Information Start: 10/26/22 17:46 Freq: Status: Active Protocol: Document 10/26/22 12:50 DCW (Rec: 10/26/22 17:54 DCW [id number]) Out-Patient Physical Therapy Visit Information Visit Information Visit Type Initial Evaluation Visit Start Time 12:50 Visit Stop Time 13:30 Total Visit Minutes 40 Visit Number 1 Number of SENIOR ENVIRONMENTAL TECHNICIAN Visits 0 Evaluation Information Evaluation Date 10/26/22 PT-OP-B Current Condition Start: 10/26/22 17:46 Freq: Status: Active Protocol: Document 10/26/22 12:50 DCW (Rec: 10/27/22 09:55 DCW [id number]) Current Condition History of Current Condition Onset Date 2020 Current Complaints R hip pain, stiffness History of Current Condition Pt is an 87 year old female presenting with a complicated history of life-long arthritis . Pt reports she was originally diagnosed with arthritis at the age of 19, was able to get treatment with various lotions and salves, which helped her life her life until she moved to [place], which with the rain and cold she worsened again. Was able to somewhat limit it's effects with Yoga and naturopathic interventions until she moved to [place] in 1995, and with the change in climate her symptoms almost completely disappeared until 2020, when she began to experience increased pain and stiffness. Has been diagnosed with spinal stenosis and severe right hip osteoarthritis. Notes she has fairly constant pain, but does not allow it to stop her from doing anything. Still regularly does yoga and tries to do a lot of stretching. Feels the pain most when trying to stand up after an extended time sitting, or when trying to lift her right leg into her car. Prior Treatments and Tests Hip x-ray: IMPRESSION: Asymmetric moderate to severe right hip joint osteoarthritis . No hip fracture or dislocation. No evidence of avascular necrosis . Alfred Patel M.D. on 09/03/2022 Lumbar MRI: IMPRESSION: Multilevel listhesis as described above. Discogenic marrow edema at T11-T12, a potential source of nonradicular axial back pain. [id number] multilevel multifactorial degenerative changes with areas of potential focal nerve root impingement as discussed above . Correlate for any corresponding radicular symptoms. Don Colon M.D. on 11/14/2021 PT-OP-C Subjective Start: 10/26/22 17:46 Freq: Status: Active Protocol: Document 10/26/22 12:50 DCW (Rec: 10/26/22 17:55 DCW [id number]) OP-PT Subjective Patient Comments Patient Comments I just feel like everything through here (right hip) is tight and needs to be stretched out. Patient Questionnaires Lower Extremity Functional Scale LEFS Score 40/80 = 50% PT-OP-F Manual Assessment Start: 10/26/22 17:46 Freq: Status: Active Protocol: Document 10/26/22 12:50 DCW (Rec: 10/26/22 17:54 DCW [id number]) Manual Assessments Soft Tissue Assessment Soft Tissue Mobility Assessment Moderate tone with tenderness to palpation 2/4: pain with wincing along R TFL/ITB, Piriformis, Hip flexors PT-OP-K Range of Motion Start: 10/26/22 17:46 Freq: Status: Active Protocol: Document 10/26/22 12:50 DCW (Rec: 10/26/22 17:54 DCW [id number]) Hip Goniometric Range of Motion Hip Right Passive Hip ROM WFL No Testing Position Supine Flexion w/Knee Flexed 90 Comments Horizontal adduction hard end feel at 0? PT-OP-L Special Tests Start: 10/26/22 17:46 Freq: Status: Active Protocol: Document 10/26/22 12:50 DCW (Rec: 10/26/22 17:54 DCW [id number]) Special Tests Hip Special Tests Scour Test Test Results Rough joint surface R Dudley Test Results Positive R Piriformis Test Results Positive R FAUSTO Test Results R hip stiffness PT-OP-M Strength Start: 10/26/22 17:46 Freq: Status: Active Protocol: Document 10/26/22 12:50 DCW (Rec: 10/26/22 17:54 DCW [id number]) Hip Strength Hip Manual Muscle Testing Right Flexion (L2) 3+ Fair+ Abduction 4- Good- Adduction 4+ Good+ External Rotation 4 Good Internal Rotation 4- Good- Left Flexion (L2) 4+ Good+ Abduction 4+ Good+ Adduction 4+ Good+ External Rotation 4+ Good+ Internal Rotation 4+ Good+ Knee Strength Knee Manual Muscle Testing Right Flexion (S2) 4+ Good+ Extension (L3) 4+ Good+ Left Flexion (S2) 5 Normal Extension (L3) 5 Normal Ankle/Foot Strength Ankle and Foot Manual Muscle Testing Right Dorsiflexion (L4) 5 Normal Left Dorsiflexion (L4) 5 Normal PT-OP-Q Treatments Start: 10/26/22 17:46 Freq: Status: Active Protocol: Document 10/26/22 12:50 DCW (Rec: 10/26/22 17:54 [facility] [id number]) Therapeutic Exercises Supine Exercises Hip Flexor Supine Exercise Name Hip flexor stretch off edge of table Side right Sitting Exercises Piriformis Sitting Exercise Name Self-STM of piriformis using tennis ball Side right Standing Exercises Hip flexor Standing Exercise Name Half-kneel hip flexor stretch Side right PT-OP-T Assessment and Plan Start: 10/26/22 17:46 Freq: Status: Active Protocol: Document 10/26/22 12:50 DCW (Rec: 10/27/22 09:55 DC [id number]) Physical Therapy Assessment Rehab Potential Rehabilitation Potential Good Evaluation Complexity Number of Personal Factors/Comorbidities 1-2 Number of Body Systems Impaired 3 Clinical Presentation at Evaluation Stable Impairments Impairments Functional Activities, Functional Mobility,Pain,ROM, Soft Tissue Mobility,Strength, Tone Goals Three Impairment Significantly restricted R hip ROM, limited to 90? flexion and 0? horiz add High Voltage Electrician Goal (LTG) Pt to demonstrate improved R hip PROM to 120? flexion in order to improve ability to perform piriformis stretching exercises LTG Duration 01/24/23 Two Impairment Pt exhibits right hip weakness , MMT for hip flexion tests as 3+/5 Custodial Goal (LTG) Pt to improve right hip flexion MMT to at worst 4/5 in order to improve ability to lift right leg into her vehicle without pain. LTG Duration 01/24/23 One Impairment Pt does not have an appropriate home exercise program Short Term Goal (STG) Pt to be independent and compliant with an appropriate HEP STG Duration 11/25/22 Assessment Summary Assessment Pt presents with signs and symptoms consistent with referring diagnosis of severe right hip osteoarthritis. Additionally, pt exhibits moderate tone in hip flexors and piriformis, which additionally restrict hip mobility and causes increased pain and joint compression. Pt responded very well to introductory stretching, admits she had been trying some of the same stretches, because she could tell they felt good, but admitted to poor overall follow-through with them. Discussed importance of regular stretching, as well as the need to maintain the stretch for a long enough time. Pt should benefit from skilled therapy focusing on continued stretching/flexibility and LE strengthening, as well as STM and manual techniques to improve tone and joint mobility. Physical Therapy Plan Frequency and Duration Frequency of Treatment 2x/Week Plan of Care Start Date 10/26/22 Plan of Care End Date 01/24/23 Therapeutic Interventions Therapeutic Interventions Home Exercise Program,Joint Mobilizations,Manual Therapy, Patient/Caregiver Education, Self-Care/Home Management,Soft Tissue Mobilization, Therapeutic Activities, Therapeutic Exercises Modalities Cold Pack/Ice Massage,Electric Stimulation,Hot Packs, Ultrasound Next Visit Focus/Plan Next Note Type Treatment Note Next Visit Plan Stretching/flexibility, LE strengthening, STM
--- NOTE | 2022-10-26 13:30 | PT.OPPOC ---
Physical, Occupational & Speech Therapy At [facility] Current Diagnoses Unilateral primary osteoarthritis, right hip (10/26/22) Pain in right hip (10/26/22) Pain in unspecified hip (10/26/22) Stiffness of right hip, not elsewhere classified (10/26/22) Visit Care Team Role Provider Type Blanco Lane MD Attending Provider Physician Family Provider Primary Care Provider Referring Provider Specialty: Family Practice Address: [address] [place] [address], [facility] Email: [email or web address] Plan Of Care PT-OP-T Assessment and Plan Start: 10/26/22 17:46 Freq: Status: Active Protocol: Document 10/26/22 12:50 DCW (Rec: 10/27/22 09:55 DCW [id number]) Physical Therapy Assessment Rehab Potential Rehabilitation Potential Good Evaluation Complexity Number of Personal Factors/Comorbidities 1-2 Number of Body Systems Impaired 3 Clinical Presentation at Evaluation Stable Impairments Impairments Functional Activities, Functional Mobility,Pain,ROM, Soft Tissue Mobility,Strength, Tone Goals Three Impairment Significantly restricted R hip ROM, limited to 90? flexion and 0? horiz add Machinist Helper Marine Goal (LTG) Pt to demonstrate improved R hip PROM to 120? flexion in order to improve ability to perform piriformis stretching exercises LTG Duration 01/24/23 Two Impairment Pt exhibits right hip weakness , MMT for hip flexion tests as 3+/5 Machinist Helper Marine Goal (LTG) Pt to improve right hip flexion MMT to at worst 4/5 in order to improve ability to lift right leg into her vehicle without pain. LTG Duration 01/24/23 One Impairment Pt does not have an appropriate home exercise program Short Term Goal (STG) Pt to be independent and compliant with an appropriate HEP STG Duration 11/25/22 Assessment Summary Assessment Pt presents with signs and symptoms consistent with referring diagnosis of severe right hip osteoarthritis. Additionally, pt exhibits moderate tone in hip flexors and piriformis, which additionally restrict hip mobility and causes increased pain and joint compression. Pt responded very well to introductory stretching, admits she had been trying some of the same stretches, because she could tell they felt good, but admitted to poor overall follow-through with them. Discussed importance of regular stretching, as well as the need to maintain the stretch for a long enough time. Pt should benefit from skilled therapy focusing on continued stretching/flexibility and LE strengthening, as well as STM and manual techniques to improve tone and joint mobility. Physical Therapy Plan Frequency and Duration Frequency of Treatment 2x/Week Plan of Care Start Date 10/26/22 Plan of Care End Date 01/24/23 Therapeutic Interventions Therapeutic Interventions Home Exercise Program,Joint Mobilizations,Manual Therapy, Patient/Caregiver Education, Self-Care/Home Management,Soft Tissue Mobilization, Therapeutic Activities, Therapeutic Exercises Modalities Cold Pack/Ice Massage,Electric Stimulation,Hot Packs, Ultrasound Next Visit Focus/Plan Next Note Type Treatment Note Next Visit Plan Stretching/flexibility, LE strengthening, STM Plan of Care Dates Plan of Care Start Date 10/26/22 Plan of Care End Date 01/24/23 Electronically Signed by: Renzo Obrien, PT 10/27/22 0956 If you are in agreement with this Plan of Care, please return a signed and dated copy. I have reviewed this Plan of Care and certify that the skilled therapy services above are required to meet the patient?s needs. Physician Signature Date Printed Name and Credentials Clinical Instructor Signature Printed Name and Credentials
--- NOTE | 2022-11-06 14:20 | PT.OTN ---
Current Diagnoses Unilateral primary osteoarthritis, right hip (11/06/22) Pain in right hip (11/06/22) Pain in unspecified hip (11/06/22) Stiffness of right hip, not elsewhere classified (11/06/22) Physical Therapy Treatment Note PT-OP-A Visit Information Start: 10/26/22 17:46 Freq: Status: Active Protocol: Document 11/06/22 13:30 DCW (Rec: 11/06/22 14:20 DCW [id number]) Out-Patient Physical Therapy Visit Information Visit Information Visit Type Treatment Note Visit Start Time 13:30 Visit Stop Time 14:15 Total Visit Minutes 45 Visit Number 2 Number of DOBBY LOOMS PEGGER Visits 0 Evaluation Information Evaluation Date 10/26/22 PT-OP-B Current Condition Start: 10/26/22 17:46 Freq: Status: Active Protocol: Document 10/26/22 12:50 DCW (Rec: 10/27/22 09:55 DCW [id number]) Current Condition History of Current Condition Onset Date 2020 Current Complaints R hip pain, stiffness History of Current Condition Pt is an 87 year old female presenting with a complicated history of life-long arthritis . Pt reports she was originally diagnosed with arthritis at the age of 19, was able to get treatment with various lotions and salves, which helped her life her life until she moved to [place], which with the rain and cold she worsened again. Was able to somewhat limit it's effects with Yoga and naturopathic interventions until she moved to [place] in 1995, and with the change in climate her symptoms almost completely disappeared until 2020, when she began to experience increased pain and stiffness. Has been diagnosed with spinal stenosis and severe right hip osteoarthritis. Notes she has fairly constant pain, but does not allow it to stop her from doing anything. Still regularly does yoga and tries to do a lot of stretching. Feels the pain most when trying to stand up after an extended time sitting, or when trying to lift her right leg into her car. Prior Treatments and Tests Hip x-ray: IMPRESSION: Asymmetric moderate to severe right hip joint osteoarthritis . No hip fracture or dislocation. No evidence of avascular necrosis . Alfred Patel M.D. on 09/03/2022 Lumbar MRI: IMPRESSION: Multilevel listhesis as described above. Discogenic marrow edema at T11-T12, a potential source of nonradicular axial back pain. [id number] multilevel multifactorial degenerative changes with areas of potential focal nerve root impingement as discussed above . Correlate for any corresponding radicular symptoms. Don Colon M.D. on 11/14/2021 PT-OP-C Subjective Start: 10/26/22 17:46 Freq: Status: Active Protocol: Document 11/06/22 13:30 DCW (Rec: 11/06/22 14:20 DCW [id number]) OP-PT Subjective Patient Comments Patient Comments I didn't sleep well last night, my hip and back were kind of sore. I don't know if I just moved wrong. PT-OP-F Manual Assessment Start: 10/26/22 17:46 Freq: Status: Active Protocol: Document 10/26/22 12:50 DCW (Rec: 10/26/22 17:54 DCW [id number]) Manual Assessments Soft Tissue Assessment Soft Tissue Mobility Assessment Moderate tone with tenderness to palpation 2/4: pain with wincing along R TFL/ITB, Piriformis, Hip flexors PT-OP-K Range of Motion Start: 10/26/22 17:46 Freq: Status: Active Protocol: Document 10/26/22 12:50 DCW (Rec: 10/26/22 17:54 DCW [id number]) Hip Goniometric Range of Motion Hip Right Passive Hip ROM WFL No Testing Position Supine Flexion w/Knee Flexed 90 Comments Horizontal adduction hard end feel at 0? PT-OP-L Special Tests Start: 10/26/22 17:46 Freq: Status: Active Protocol: Document 10/26/22 12:50 DCW (Rec: 10/26/22 17:54 DCW [id number]) Special Tests Hip Special Tests Scour Test Test Results Rough joint surface R Dudley Test Results Positive R Piriformis Test Results Positive R FAUSTO Test Results R hip stiffness PT-OP-M Strength Start: 10/26/22 17:46 Freq: Status: Active Protocol: Document 10/26/22 12:50 DCW (Rec: 10/26/22 17:54 DCW [id number]) Hip Strength Hip Manual Muscle Testing Right Flexion (L2) 3+ Fair+ Abduction 4- Good- Adduction 4+ Good+ External Rotation 4 Good Internal Rotation 4- Good- Left Flexion (L2) 4+ Good+ Abduction 4+ Good+ Adduction 4+ Good+ External Rotation 4+ Good+ Internal Rotation 4+ Good+ Knee Strength Knee Manual Muscle Testing Right Flexion (S2) 4+ Good+ Extension (L3) 4+ Good+ Left Flexion (S2) 5 Normal Extension (L3) 5 Normal Ankle/Foot Strength Ankle and Foot Manual Muscle Testing Right Dorsiflexion (L4) 5 Normal Left Dorsiflexion (L4) 5 Normal PT-OP-Q Treatments Start: 10/26/22 17:46 Freq: Status: Active Protocol: Document 11/06/22 13:30 DCW (Rec: 11/06/22 14:20 DCW [id number]) Therapeutic Exercises Sidelying Exercises Clamshell Sidelying Exercise Name Clamshell ITB Sidelying Exercise Name ITB Roller Manual Therapy Treatment Soft Tissue Mobilization Piriformis Body Location R Piriformis Mobilization Type Strumming,Sustained Pressure Intensity/Depth Moderate Hip Flexors Body Location R Hip Flexors Mobilization Type Strumming,Sustained Pressure Intensity/Depth Moderate Manual Traction Lower Extremity Details Long-axis R LE traction Hip Details Short-axis /c strap Body Position Hooklying Comments Inferiolateral pull Self-Care/Home Management Treatment Education Other Education Discussion regarding involvement of THAs, anatomical education regarding OA of the hip PT-OP-T Assessment and Plan Start: 10/26/22 17:46 Freq: Status: Active Protocol: Document 11/06/22 13:30 DCW (Rec: 11/06/22 14:20 DCW [id number]) Physical Therapy Assessment Impairments Impairments Functional Activities, Functional Mobility,Pain,ROM, Soft Tissue Mobility,Strength, Tone Goals Three Impairment Significantly restricted R hip ROM, limited to 90? flexion and 0? horiz add Lamination Machine Operator Goal (LTG) Pt to demonstrate improved R hip PROM to 120? flexion in order to improve ability to perform piriformis stretching exercises LTG Duration 01/24/23 Two Impairment Pt exhibits right hip weakness , MMT for hip flexion tests as 3+/5 Longterm Goal (LTG) Pt to improve right hip flexion MMT to at worst 4/5 in order to improve ability to lift right leg into her vehicle without pain. LTG Duration 01/24/23 One Impairment Pt does not have an appropriate home exercise program Short Term Goal (STG) Pt to be independent and compliant with an appropriate HEP STG Duration 11/25/22 Assessment Summary Assessment Pt experiencing increased cramping attempting Clamshell, but otherwise tolerated treatment very well, felt significant improvement with LE traction. Extended discussion regarding disease process of osteoarthritis and typical therapy outcomes following THAs. Physical Therapy Plan Frequency and Duration Frequency of Treatment 2x/Week Plan of Care Start Date 10/26/22 Plan of Care End Date 01/24/23 Therapeutic Interventions Therapeutic Interventions Home Exercise Program,Joint Mobilizations,Manual Therapy, Patient/Caregiver Education, Self-Care/Home Management,Soft Tissue Mobilization, Therapeutic Activities, Therapeutic Exercises Modalities Cold Pack/Ice Massage,Electric Stimulation,Hot Packs, Ultrasound Next Visit Focus/Plan Next Note Type Treatment Note Next Visit Plan Stretching/flexibility, LE strengthening, STM
--- NOTE | 2022-11-10 17:24 | PT.OTN ---
Current Diagnoses Unilateral primary osteoarthritis, right hip (11/10/22) Pain in right hip (11/10/22) Pain in unspecified hip (11/10/22) Stiffness of right hip, not elsewhere classified (11/10/22) Physical Therapy Treatment Note PT-OP-A Visit Information Start: 10/26/22 17:46 Freq: Status: Active Protocol: Document 11/10/22 16:30 DCW (Rec: 11/10/22 17:24 DCW [id number]) Out-Patient Physical Therapy Visit Information Visit Information Visit Type Treatment Note Visit Start Time 16:30 Visit Stop Time 17:15 Total Visit Minutes 45 Visit Number 3 Number of CONSTRUCTION RECRUITER Visits 0 Evaluation Information Evaluation Date 10/26/22 PT-OP-B Current Condition Start: 10/26/22 17:46 Freq: Status: Active Protocol: Document 10/26/22 12:50 DCW (Rec: 10/27/22 09:55 DCW [id number]) Current Condition History of Current Condition Onset Date 2020 Current Complaints R hip pain, stiffness History of Current Condition Pt is an 87 year old female presenting with a complicated history of life-long arthritis . Pt reports she was originally diagnosed with arthritis at the age of 19, was able to get treatment with various lotions and salves, which helped her life her life until she moved to [place], which with the rain and cold she worsened again. Was able to somewhat limit it's effects with Yoga and naturopathic interventions until she moved to [place] in 1995, and with the change in climate her symptoms almost completely disappeared until 2020, when she began to experience increased pain and stiffness. Has been diagnosed with spinal stenosis and severe right hip osteoarthritis. Notes she has fairly constant pain, but does not allow it to stop her from doing anything. Still regularly does yoga and tries to do a lot of stretching. Feels the pain most when trying to stand up after an extended time sitting, or when trying to lift her right leg into her car. Prior Treatments and Tests Hip x-ray: IMPRESSION: Asymmetric moderate to severe right hip joint osteoarthritis . No hip fracture or dislocation. No evidence of avascular necrosis . Alfred Patel M.D. on 09/03/2022 Lumbar MRI: IMPRESSION: Multilevel listhesis as described above. Discogenic marrow edema at T11-T12, a potential source of nonradicular axial back pain. [id number] multilevel multifactorial degenerative changes with areas of potential focal nerve root impingement as discussed above . Correlate for any corresponding radicular symptoms. Don Colon M.D. on 11/14/2021 PT-OP-C Subjective Start: 10/26/22 17:46 Freq: Status: Active Protocol: Document 11/10/22 16:30 DCW (Rec: 11/10/22 17:24 DCW [id number]) OP-PT Subjective Patient Comments Patient Comments Pt reports she walked out of the clinic last week with no pain, she felt great, still felt good the next day, admits she may have done too much, was a little sore afterward, and today her pain has been pretty sore today. PT-OP-F Manual Assessment Start: 10/26/22 17:46 Freq: Status: Active Protocol: Document 10/26/22 12:50 DCW (Rec: 10/26/22 17:54 DCW [id number]) Manual Assessments Soft Tissue Assessment Soft Tissue Mobility Assessment Moderate tone with tenderness to palpation 2/4: pain with wincing along R TFL/ITB, Piriformis, Hip flexors PT-OP-K Range of Motion Start: 10/26/22 17:46 Freq: Status: Active Protocol: Document 10/26/22 12:50 DCW (Rec: 10/26/22 17:54 DCW [id number]) Hip Goniometric Range of Motion Hip Right Passive Hip ROM WFL No Testing Position Supine Flexion w/Knee Flexed 90 Comments Horizontal adduction hard end feel at 0? PT-OP-L Special Tests Start: 10/26/22 17:46 Freq: Status: Active Protocol: Document 10/26/22 12:50 DCW (Rec: 10/26/22 17:54 DCW [id number]) Special Tests Hip Special Tests Scour Test Test Results Rough joint surface R Dudley Test Results Positive R Piriformis Test Results Positive R FASUTO Test Results R hip stiffness PT-OP-M Strength Start: 10/26/22 17:46 Freq: Status: Active Protocol: Document 10/26/22 12:50 DCW (Rec: 10/26/22 17:54 DCW [id number]) Hip Strength Hip Manual Muscle Testing Right Flexion (L2) 3+ Fair+ Abduction 4- Good- Adduction 4+ Good+ External Rotation 4 Good Internal Rotation 4- Good- Left Flexion (L2) 4+ Good+ Abduction 4+ Good+ Adduction 4+ Good+ External Rotation 4+ Good+ Internal Rotation 4+ Good+ Knee Strength Knee Manual Muscle Testing Right Flexion (S2) 4+ Good+ Extension (L3) 4+ Good+ Left Flexion (S2) 5 Normal Extension (L3) 5 Normal Ankle/Foot Strength Ankle and Foot Manual Muscle Testing Right Dorsiflexion (L4) 5 Normal Left Dorsiflexion (L4) 5 Normal PT-OP-Q Treatments Start: 10/26/22 17:46 Freq: Status: Active Protocol: Document 11/10/22 16:30 DCW (Rec: 11/10/22 17:24 DCW [id number]) Therapeutic Exercises Supine Exercises Hamstring stretch Supine Exercise Name Hamstring stretch Side right Hip Flexor Supine Exercise Name Hip flexor stretch off edge of table Side right Manual Therapy Treatment Soft Tissue Mobilization Piriformis Body Location R Piriformis Mobilization Type Strumming,Sustained Pressure Intensity/Depth Moderate Body Position Sidelying Hip Flexors Body Location R Hip Flexors Mobilization Type Strumming,Sustained Pressure Intensity/Depth Moderate Body Position Hooklying Manual Traction Lower Extremity Details Long-axis R LE traction Hip Details Short-axis /c strap Body Position Hooklying Comments Inferiolateral pull PT-OP-T Assessment and Plan Start: 10/26/22 17:46 Freq: Status: Active Protocol: Document 11/10/22 16:30 DCW (Rec: 11/10/22 17:24 DCW [id number]) Physical Therapy Assessment Impairments Impairments Functional Activities, Functional Mobility,Pain,ROM, Soft Tissue Mobility,Strength, Tone Goals Three Impairment Significantly restricted R hip ROM, limited to 90? flexion and 0? horiz add Senior Care Goal (LTG) Pt to demonstrate improved R hip PROM to 120? flexion in order to improve ability to perform piriformis stretching exercises LTG Duration 01/24/23 Two Impairment Pt exhibits right hip weakness , MMT for hip flexion tests as 3+/5 Hearing Screener Goal (LTG) Pt to improve right hip flexion MMT to at worst 4/5 in order to improve ability to lift right leg into her vehicle without pain. LTG Duration 01/24/23 One Impairment Pt does not have an appropriate home exercise program Short Term Goal (STG) Pt to be independent and compliant with an appropriate HEP STG Duration 11/25/22 Assessment Summary Assessment Pt noted significant improvement with hip mobility and pain-free movement following LE traction, able to perform hip flexion and lift right leg without any increased pain or difficulty. Physical Therapy Plan Frequency and Duration Frequency of Treatment 2x/Week Plan of Care Start Date 10/26/22 Plan of Care End Date 01/24/23 Therapeutic Interventions Therapeutic Interventions Home Exercise Program,Joint Mobilizations,Manual Therapy, Patient/Caregiver Education, Self-Care/Home Management,Soft Tissue Mobilization, Therapeutic Activities, Therapeutic Exercises Modalities Cold Pack/Ice Massage,Electric Stimulation,Hot Packs, Ultrasound Next Visit Focus/Plan Next Note Type Treatment Note Next Visit Plan Stretching/flexibility, LE strengthening, STM
--- NOTE | 2022-11-12 11:43 | PT.OTN ---
Current Diagnoses Unilateral primary osteoarthritis, right hip (11/12/22) Pain in right hip (11/12/22) Pain in unspecified hip (11/12/22) Stiffness of right hip, not elsewhere classified (11/12/22) Physical Therapy Treatment Note PT-OP-A Visit Information Start: 10/26/22 17:46 Freq: Status: Active Protocol: Document 11/12/22 11:00 DCW (Rec: 11/12/22 11:43 DCW [id number]) Out-Patient Physical Therapy Visit Information Visit Information Visit Type Treatment Note Visit Start Time 11:00 Visit Stop Time 11:45 Total Visit Minutes 45 Visit Number 4 Number of CUSTOMER EXPERIENCE LEADER Visits 0 Evaluation Information Evaluation Date 10/26/22 PT-OP-B Current Condition Start: 10/26/22 17:46 Freq: Status: Active Protocol: Document 10/26/22 12:50 DCW (Rec: 10/27/22 09:55 DCW [id number]) Current Condition History of Current Condition Onset Date 2020 Current Complaints R hip pain, stiffness History of Current Condition Pt is an 87 year old female presenting with a complicated history of life-long arthritis . Pt reports she was originally diagnosed with arthritis at the age of 19, was able to get treatment with various lotions and salves, which helped her life her life until she moved to [place], which with the rain and cold she worsened again. Was able to somewhat limit it's effects with Yoga and naturopathic interventions until she moved to [place] in 1995, and with the change in climate her symptoms almost completely disappeared until 2020, when she began to experience increased pain and stiffness. Has been diagnosed with spinal stenosis and severe right hip osteoarthritis. Notes she has fairly constant pain, but does not allow it to stop her from doing anything. Still regularly does yoga and tries to do a lot of stretching. Feels the pain most when trying to stand up after an extended time sitting, or when trying to lift her right leg into her car. Prior Treatments and Tests Hip x-ray: IMPRESSION: Asymmetric moderate to severe right hip joint osteoarthritis . No hip fracture or dislocation. No evidence of avascular necrosis . Alfred Patel M.D. on 09/03/2022 Lumbar MRI: IMPRESSION: Multilevel listhesis as described above. Discogenic marrow edema at T11-T12, a potential source of nonradicular axial back pain. [id number] multilevel multifactorial degenerative changes with areas of potential focal nerve root impingement as discussed above . Correlate for any corresponding radicular symptoms. Don Colon M.D. on 11/14/2021 PT-OP-C Subjective Start: 10/26/22 17:46 Freq: Status: Active Protocol: Document 11/12/22 11:00 DCW (Rec: 11/12/22 11:43 DCW [id number]) OP-PT Subjective Patient Comments Patient Comments I think we have pretty good results. PT-OP-F Manual Assessment Start: 10/26/22 17:46 Freq: Status: Active Protocol: Document 10/26/22 12:50 DCW (Rec: 10/26/22 17:54 DCW [id number]) Manual Assessments Soft Tissue Assessment Soft Tissue Mobility Assessment Moderate tone with tenderness to palpation 2/4: pain with wincing along R TFL/ITB, Piriformis, Hip flexors PT-OP-K Range of Motion Start: 10/26/22 17:46 Freq: Status: Active Protocol: Document 10/26/22 12:50 DCW (Rec: 10/26/22 17:54 DCW [id number]) Hip Goniometric Range of Motion Hip Right Passive Hip ROM WFL No Testing Position Supine Flexion w/Knee Flexed 90 Comments Horizontal adduction hard end feel at 0? PT-OP-L Special Tests Start: 10/26/22 17:46 Freq: Status: Active Protocol: Document 10/26/22 12:50 DCW (Rec: 10/26/22 17:54 DCW [id number]) Special Tests Hip Special Tests Scour Test Test Results Rough joint surface R Dudley Test Results Positive R Piriformis Test Results Positive R FAUSTO Test Results R hip stiffness PT-OP-M Strength Start: 10/26/22 17:46 Freq: Status: Active Protocol: Document 10/26/22 12:50 DCW (Rec: 10/26/22 17:54 DCW [id number]) Hip Strength Hip Manual Muscle Testing Right Flexion (L2) 3+ Fair+ Abduction 4- Good- Adduction 4+ Good+ External Rotation 4 Good Internal Rotation 4- Good- Left Flexion (L2) 4+ Good+ Abduction 4+ Good+ Adduction 4+ Good+ External Rotation 4+ Good+ Internal Rotation 4+ Good+ Knee Strength Knee Manual Muscle Testing Right Flexion (S2) 4+ Good+ Extension (L3) 4+ Good+ Left Flexion (S2) 5 Normal Extension (L3) 5 Normal Ankle/Foot Strength Ankle and Foot Manual Muscle Testing Right Dorsiflexion (L4) 5 Normal Left Dorsiflexion (L4) 5 Normal PT-OP-Q Treatments Start: 10/26/22 17:46 Freq: Status: Active Protocol: Document 11/12/22 11:00 DCW (Rec: 11/12/22 11:43 DCW [id number]) Therapeutic Exercises Sidelying Exercises Clamshell Sidelying Exercise Name Clamshell Side right Standing Exercises Hip extension Standing Exercise Name Hip Extension Side bilateral Resistance Yellow Toe-taps Standing Exercise Name Toe-taps Side bilateral Resistance 4# Equipment Used 6 step Other Exercises Resisted Ambulation Other Exercise Name Resisted side-stepping Side bilateral Resistance Yellow Anupam Other Exercise Name Side-stepping over single anupam Resistance 4# Manual Therapy Treatment Soft Tissue Mobilization Piriformis Body Location R Piriformis Mobilization Type Strumming,Sustained Pressure Intensity/Depth Moderate Body Position Sidelying Hip Flexors Body Location R Hip Flexors Mobilization Type Strumming,Sustained Pressure Intensity/Depth Moderate Body Position Hooklying Manual Traction Lower Extremity Details Long-axis R LE traction PT-OP-T Assessment and Plan Start: 10/26/22 17:46 Freq: Status: Active Protocol: Document 11/12/22 11:00 DCW (Rec: 11/12/22 11:43 DCW [id number]) Physical Therapy Assessment Impairments Impairments Functional Activities, Functional Mobility,Pain,ROM, Soft Tissue Mobility,Strength, Tone Goals Three Impairment Significantly restricted R hip ROM, limited to 90? flexion and 0? horiz add Half-Way Goal (LTG) Pt to demonstrate improved R hip PROM to 120? flexion in order to improve ability to perform piriformis stretching exercises LTG Duration 01/24/23 Two Impairment Pt exhibits right hip weakness , MMT for hip flexion tests as 3+/5 Half-Way Goal (LTG) Pt to improve right hip flexion MMT to at worst 4/5 in order to improve ability to lift right leg into her vehicle without pain. LTG Duration 01/24/23 One Impairment Pt does not have an appropriate home exercise program Short Term Goal (STG) Pt to be independent and compliant with an appropriate HEP STG Duration 11/25/22 Assessment Summary Assessment Working more on addition of strengthening exercises, PROM of the right hip has shown some improvement since initial evaluation, passive flexion increased from 90? to 113?, horizontal adduction from 0? to 9?. Physical Therapy Plan Frequency and Duration Frequency of Treatment 2x/Week Plan of Care Start Date 10/26/22 Plan of Care End Date 01/24/23 Therapeutic Interventions Therapeutic Interventions Home Exercise Program,Joint Mobilizations,Manual Therapy, Patient/Caregiver Education, Self-Care/Home Management,Soft Tissue Mobilization, Therapeutic Activities, Therapeutic Exercises Modalities Cold Pack/Ice Massage,Electric Stimulation,Hot Packs, Ultrasound Next Visit Focus/Plan Next Note Type Treatment Note Next Visit Plan Stretching/flexibility, LE strengthening, STM
--- NOTE | 2022-11-18 11:56 | PT.OTN ---
Current Diagnoses Unilateral primary osteoarthritis, right hip (11/18/22) Pain in right hip (11/18/22) Pain in unspecified hip (11/18/22) Stiffness of right hip, not elsewhere classified (11/18/22) Physical Therapy Treatment Note PT-OP-A Visit Information Start: 10/26/22 17:46 Freq: Status: Active Protocol: Document 11/18/22 11:09 ES (Rec: 11/18/22 11:56 ES [id number]) Out-Patient Physical Therapy Visit Information Visit Information Visit Type Treatment Note Visit Start Time 11:05 Visit Stop Time 11:50 Total Visit Minutes 45 Visit Number 5 Number of SERVICE PERSON Visits 0 Evaluation Information Evaluation Date 10/26/22 PT-OP-B Current Condition Start: 10/26/22 17:46 Freq: Status: Active Protocol: Document 10/26/22 12:50 DCW (Rec: 10/27/22 09:55 DCW [id number]) Current Condition History of Current Condition Onset Date 2020 Current Complaints R hip pain, stiffness History of Current Condition Pt is an 87 year old female presenting with a complicated history of life-long arthritis . Pt reports she was originally diagnosed with arthritis at the age of 19, was able to get treatment with various lotions and salves, which helped her life her life until she moved to [place], which with the rain and cold she worsened again. Was able to somewhat limit it's effects with Yoga and naturopathic interventions until she moved to [place] in 1995, and with the change in climate her symptoms almost completely disappeared until 2020, when she began to experience increased pain and stiffness. Has been diagnosed with spinal stenosis and severe right hip osteoarthritis. Notes she has fairly constant pain, but does not allow it to stop her from doing anything. Still regularly does yoga and tries to do a lot of stretching. Feels the pain most when trying to stand up after an extended time sitting, or when trying to lift her right leg into her car. Prior Treatments and Tests Hip x-ray: IMPRESSION: Asymmetric moderate to severe right hip joint osteoarthritis . No hip fracture or dislocation. No evidence of avascular necrosis . Alfred Patel M.D. on 09/03/2022 Lumbar MRI: IMPRESSION: Multilevel listhesis as described above. Discogenic marrow edema at T11-T12, a potential source of nonradicular axial back pain. [id number] multilevel multifactorial degenerative changes with areas of potential focal nerve root impingement as discussed above . Correlate for any corresponding radicular symptoms. Don Colon M.D. on 11/14/2021 PT-OP-C Subjective Start: 10/26/22 17:46 Freq: Status: Active Protocol: Document 11/18/22 11:09 ES (Rec: 11/18/22 11:56 ES [id number]) OP-PT Subjective Patient Comments Patient Comments Patient reported that she has been walking and moving her leg more easily since the last visit, stated the ex's seem to be helping a lot. Is having trouble getting up from squatting down when working in her yard. PT-OP-F Manual Assessment Start: 10/26/22 17:46 Freq: Status: Active Protocol: Document 10/26/22 12:50 DCW (Rec: 10/26/22 17:54 DCW [id number]) Manual Assessments Soft Tissue Assessment Soft Tissue Mobility Assessment Moderate tone with tenderness to palpation 2/4: pain with wincing along R TFL/ITB, Piriformis, Hip flexors PT-OP-K Range of Motion Start: 10/26/22 17:46 Freq: Status: Active Protocol: Document 10/26/22 12:50 DCW (Rec: 10/26/22 17:54 DCW [id number]) Hip Goniometric Range of Motion Hip Right Passive Hip ROM WFL No Testing Position Supine Flexion w/Knee Flexed 90 Comments Horizontal adduction hard end feel at 0? PT-OP-L Special Tests Start: 10/26/22 17:46 Freq: Status: Active Protocol: Document 10/26/22 12:50 DCW (Rec: 10/26/22 17:54 DCW [id number]) Special Tests Hip Special Tests Scour Test Test Results Rough joint surface R Dudley Test Results Positive R Piriformis Test Results Positive R FAUSTO Test Results R hip stiffness PT-OP-M Strength Start: 10/26/22 17:46 Freq: Status: Active Protocol: Document 10/26/22 12:50 DCW (Rec: 10/26/22 17:54 DCW [id number]) Hip Strength Hip Manual Muscle Testing Right Flexion (L2) 3+ Fair+ Abduction 4- Good- Adduction 4+ Good+ External Rotation 4 Good Internal Rotation 4- Good- Left Flexion (L2) 4+ Good+ Abduction 4+ Good+ Adduction 4+ Good+ External Rotation 4+ Good+ Internal Rotation 4+ Good+ Knee Strength Knee Manual Muscle Testing Right Flexion (S2) 4+ Good+ Extension (L3) 4+ Good+ Left Flexion (S2) 5 Normal Extension (L3) 5 Normal Ankle/Foot Strength Ankle and Foot Manual Muscle Testing Right Dorsiflexion (L4) 5 Normal Left Dorsiflexion (L4) 5 Normal PT-OP-Q Treatments Start: 10/26/22 17:46 Freq: Status: Active Protocol: Document 11/18/22 11:09 ES (Rec: 11/18/22 11:56 ES [id number]) Therapeutic Exercises Standing Exercises Chair squat Standing Exercise Name Chair squat Equipment Used 22 table height Comments Added to HEP Toe-taps Standing Exercise Name Toe-taps Side bilateral Resistance 4# Equipment Used 6 step Other Exercises Anupam Other Exercise Name Side-stepping over single anupam Resistance 4# Manual Therapy Treatment Soft Tissue Mobilization Piriformis Body Location R Piriformis Mobilization Type Strumming,Sustained Pressure Intensity/Depth Moderate Body Position Sidelying Hip Flexors Body Location R Hip Flexors Mobilization Type Strumming,Sustained Pressure Intensity/Depth Moderate Body Position Hooklying Manual Traction Lower Extremity Details Long-axis R LE traction PT-OP-T Assessment and Plan Start: 10/26/22 17:46 Freq: Status: Active Protocol: Document 11/18/22 11:09 ES (Rec: 11/18/22 11:56 ES [id number]) Physical Therapy Assessment Impairments Impairments Functional Activities, Functional Mobility,Pain,ROM, Soft Tissue Mobility,Strength, Tone Goals Three Impairment Significantly restricted R hip ROM, limited to 90? flexion and 0? horiz add Postpartum Nurse Goal (LTG) Pt to demonstrate improved R hip PROM to 120? flexion in order to improve ability to perform piriformis stretching exercises LTG Duration 01/24/23 Two Impairment Pt exhibits right hip weakness , MMT for hip flexion tests as 3+/5 Postpartum Nurse Goal (LTG) Pt to improve right hip flexion MMT to at worst 4/5 in order to improve ability to lift right leg into her vehicle without pain. LTG Duration 01/24/23 One Impairment Pt does not have an appropriate home exercise program Short Term Goal (STG) Pt to be independent and compliant with an appropriate HEP STG Duration 11/25/22 Assessment Summary Assessment Patient c/o lateral R knee pain with toe tap and lateral stepping over anupam this visit. She was able to perform chair squat (tap down) to max depth of 22 table height without increase in hip/knee pain and would benefit from further strengthening to improve her ability to work in the yard and garden. Physical Therapy Plan Frequency and Duration Frequency of Treatment 2x/Week Plan of Care Start Date 10/26/22 Plan of Care End Date 01/24/23 Therapeutic Interventions Therapeutic Interventions Home Exercise Program,Joint Mobilizations,Manual Therapy, Patient/Caregiver Education, Self-Care/Home Management,Soft Tissue Mobilization, Therapeutic Activities, Therapeutic Exercises Modalities Cold Pack/Ice Massage,Electric Stimulation,Hot Packs, Ultrasound Next Visit Focus/Plan Next Note Type Treatment Note Next Visit Plan Stretching/flexibility, LE strengthening, STM
--- NOTE | 2022-11-20 12:15 | PT.OTN ---
Current Diagnoses Unilateral primary osteoarthritis, right hip (11/20/22) Pain in right hip (11/20/22) Pain in unspecified hip (11/20/22) Stiffness of right hip, not elsewhere classified (11/20/22) Physical Therapy Treatment Note PT-OP-A Visit Information Start: 10/26/22 17:46 Freq: Status: Active Protocol: Document 11/20/22 11:32 DCW (Rec: 11/20/22 12:15 DCW [id number]) Out-Patient Physical Therapy Visit Information Visit Information Visit Type Treatment Note Visit Start Time 11:32 Visit Stop Time 12:15 Total Visit Minutes 43 Visit Number 6 Number of CHIEF OF PEDIATRIC UROLOGY Visits 0 Evaluation Information Evaluation Date 10/26/22 PT-OP-B Current Condition Start: 10/26/22 17:46 Freq: Status: Active Protocol: Document 10/26/22 12:50 DCW (Rec: 10/27/22 09:55 DCW [id number]) Current Condition History of Current Condition Onset Date 2020 Current Complaints R hip pain, stiffness History of Current Condition Pt is an 87 year old female presenting with a complicated history of life-long arthritis . Pt reports she was originally diagnosed with arthritis at the age of 19, was able to get treatment with various lotions and salves, which helped her life her life until she moved to [place], which with the rain and cold she worsened again. Was able to somewhat limit it's effects with Yoga and naturopathic interventions until she moved to [place] in 1995, and with the change in climate her symptoms almost completely disappeared until 2020, when she began to experience increased pain and stiffness. Has been diagnosed with spinal stenosis and severe right hip osteoarthritis. Notes she has fairly constant pain, but does not allow it to stop her from doing anything. Still regularly does yoga and tries to do a lot of stretching. Feels the pain most when trying to stand up after an extended time sitting, or when trying to lift her right leg into her car. Prior Treatments and Tests Hip x-ray: IMPRESSION: Asymmetric moderate to severe right hip joint osteoarthritis . No hip fracture or dislocation. No evidence of avascular necrosis . Alfred Patel M.D. on 09/03/2022 Lumbar MRI: IMPRESSION: Multilevel listhesis as described above. Discogenic marrow edema at T11-T12, a potential source of nonradicular axial back pain. [id number] multilevel multifactorial degenerative changes with areas of potential focal nerve root impingement as discussed above . Correlate for any corresponding radicular symptoms. Don Colon M.D. on 11/14/2021 PT-OP-C Subjective Start: 10/26/22 17:46 Freq: Status: Active Protocol: Document 11/20/22 11:32 DCW (Rec: 11/20/22 12:15 DCW [id number]) OP-PT Subjective Patient Comments Patient Comments Yesterday was not so good, I notice it most when I'm driving. PT-OP-F Manual Assessment Start: 10/26/22 17:46 Freq: Status: Active Protocol: Document 10/26/22 12:50 DCW (Rec: 10/26/22 17:54 DCW [id number]) Manual Assessments Soft Tissue Assessment Soft Tissue Mobility Assessment Moderate tone with tenderness to palpation 2/4: pain with wincing along R TFL/ITB, Piriformis, Hip flexors PT-OP-K Range of Motion Start: 10/26/22 17:46 Freq: Status: Active Protocol: Document 10/26/22 12:50 DCW (Rec: 10/26/22 17:54 DCW [id number]) Hip Goniometric Range of Motion Hip Right Passive Hip ROM WFL No Testing Position Supine Flexion w/Knee Flexed 90 Comments Horizontal adduction hard end feel at 0? PT-OP-L Special Tests Start: 10/26/22 17:46 Freq: Status: Active Protocol: Document 10/26/22 12:50 DCW (Rec: 10/26/22 17:54 DCW [id number]) Special Tests Hip Special Tests Scour Test Test Results Rough joint surface R Dudley Test Results Positive R Piriformis Test Results Positive R FAUSTO Test Results R hip stiffness PT-OP-M Strength Start: 10/26/22 17:46 Freq: Status: Active Protocol: Document 10/26/22 12:50 DCW (Rec: 10/26/22 17:54 DCW [id number]) Hip Strength Hip Manual Muscle Testing Right Flexion (L2) 3+ Fair+ Abduction 4- Good- Adduction 4+ Good+ External Rotation 4 Good Internal Rotation 4- Good- Left Flexion (L2) 4+ Good+ Abduction 4+ Good+ Adduction 4+ Good+ External Rotation 4+ Good+ Internal Rotation 4+ Good+ Knee Strength Knee Manual Muscle Testing Right Flexion (S2) 4+ Good+ Extension (L3) 4+ Good+ Left Flexion (S2) 5 Normal Extension (L3) 5 Normal Ankle/Foot Strength Ankle and Foot Manual Muscle Testing Right Dorsiflexion (L4) 5 Normal Left Dorsiflexion (L4) 5 Normal PT-OP-Q Treatments Start: 10/26/22 17:46 Freq: Status: Active Protocol: Document 11/20/22 11:32 DCW (Rec: 11/20/22 12:15 DCW [id number]) Therapeutic Exercises Prone Exercises Quad Stretch Prone Exercise Name Quad stretch /c strap Side bilateral Standing Exercises Step-ups Standing Exercise Name Step-ups Side bilateral Equipment Used 4 step BOSU Lunge Standing Exercise Name BOSU Lunge Side bilateral Equipment Used Blue BOSU Manual Therapy Treatment Soft Tissue Mobilization Piriformis Body Location R Piriformis Mobilization Type Strumming,Sustained Pressure Intensity/Depth Moderate Body Position Sidelying Hip Flexors Body Location R Hip Flexors Mobilization Type Strumming,Sustained Pressure Intensity/Depth Moderate Body Position Hooklying Manual Traction Lower Extremity Details Long-axis R LE traction Hip Details Short-axis /c strap Body Position Hooklying Comments Inferiolateral pull PT-OP-T Assessment and Plan Start: 10/26/22 17:46 Freq: Status: Active Protocol: Document 11/20/22 11:32 DCW (Rec: 11/20/22 12:15 DCW [id number]) Physical Therapy Assessment Impairments Impairments Functional Activities, Functional Mobility,Pain,ROM, Soft Tissue Mobility,Strength, Tone Goals Three Impairment Significantly restricted R hip ROM, limited to 90? flexion and 0? horiz add Chcf Goal (LTG) Pt to demonstrate improved R hip PROM to 120? flexion in order to improve ability to perform piriformis stretching exercises LTG Duration 01/24/23 Two Impairment Pt exhibits right hip weakness , MMT for hip flexion tests as 3+/5 Panel Lay Up Worker Goal (LTG) Pt to improve right hip flexion MMT to at worst 4/5 in order to improve ability to lift right leg into her vehicle without pain. LTG Duration 01/24/23 One Impairment Pt does not have an appropriate home exercise program Short Term Goal (STG) Pt to be independent and compliant with an appropriate HEP STG Duration 11/25/22 Assessment Summary Assessment Pt continues to respond very well to stretching and STM, added HEP activities today to work on functional movements like lunge and step-ups. Physical Therapy Plan Frequency and Duration Frequency of Treatment 2x/Week Plan of Care Start Date 10/26/22 Plan of Care End Date 01/24/23 Therapeutic Interventions Therapeutic Interventions Home Exercise Program,Joint Mobilizations,Manual Therapy, Patient/Caregiver Education, Self-Care/Home Management,Soft Tissue Mobilization, Therapeutic Activities, Therapeutic Exercises Modalities Cold Pack/Ice Massage,Electric Stimulation,Hot Packs, Ultrasound Next Visit Focus/Plan Next Note Type Treatment Note Next Visit Plan Stretching/flexibility, LE strengthening, STM
--- NOTE | 2022-11-24 11:42 | PT.OTN ---
Current Diagnoses Unilateral primary osteoarthritis, right hip (11/24/22) Pain in right hip (11/24/22) Pain in unspecified hip (11/24/22) Stiffness of right hip, not elsewhere classified (11/24/22) Physical Therapy Treatment Note PT-OP-A Visit Information Start: 10/26/22 17:46 Freq: Status: Active Protocol: Document 11/24/22 11:00 DCW (Rec: 11/24/22 11:42 DCW [id number]) Out-Patient Physical Therapy Visit Information Visit Information Visit Type Treatment Note Visit Start Time 11:00 Visit Stop Time 11:45 Total Visit Minutes 45 Visit Number 7 Number of CHICK SEXER Visits 0 Evaluation Information Evaluation Date 10/26/22 PT-OP-B Current Condition Start: 10/26/22 17:46 Freq: Status: Active Protocol: Document 10/26/22 12:50 DCW (Rec: 10/27/22 09:55 DCW [id number]) Current Condition History of Current Condition Onset Date 2020 Current Complaints R hip pain, stiffness History of Current Condition Pt is an 87 year old female presenting with a complicated history of life-long arthritis . Pt reports she was originally diagnosed with arthritis at the age of 19, was able to get treatment with various lotions and salves, which helped her life her life until she moved to [place], which with the rain and cold she worsened again. Was able to somewhat limit it's effects with Yoga and naturopathic interventions until she moved to [place] in 1995, and with the change in climate her symptoms almost completely disappeared until 2020, when she began to experience increased pain and stiffness. Has been diagnosed with spinal stenosis and severe right hip osteoarthritis. Notes she has fairly constant pain, but does not allow it to stop her from doing anything. Still regularly does yoga and tries to do a lot of stretching. Feels the pain most when trying to stand up after an extended time sitting, or when trying to lift her right leg into her car. Prior Treatments and Tests Hip x-ray: IMPRESSION: Asymmetric moderate to severe right hip joint osteoarthritis . No hip fracture or dislocation. No evidence of avascular necrosis . Alfred Patel M.D. on 09/03/2022 Lumbar MRI: IMPRESSION: Multilevel listhesis as described above. Discogenic marrow edema at T11-T12, a potential source of nonradicular axial back pain. [id number] multilevel multifactorial degenerative changes with areas of potential focal nerve root impingement as discussed above . Correlate for any corresponding radicular symptoms. Don Colon M.D. on 11/14/2021 PT-OP-C Subjective Start: 10/26/22 17:46 Freq: Status: Active Protocol: Document 11/24/22 11:00 DCW (Rec: 11/24/22 11:42 DCW [id number]) OP-PT Subjective Patient Comments Patient Comments Wednesday when I walked out of here, I felt great, and Wednesday I woke up and had no pain, but then Wednesday evening I did my exercises, and I must have made a wrong movement, and the pain came back. It's not too bad, but it 's there. PT-OP-F Manual Assessment Start: 10/26/22 17:46 Freq: Status: Active Protocol: Document 10/26/22 12:50 DCW (Rec: 10/26/22 17:54 DCW [id number]) Manual Assessments Soft Tissue Assessment Soft Tissue Mobility Assessment Moderate tone with tenderness to palpation 2/4: pain with wincing along R TFL/ITB, Piriformis, Hip flexors PT-OP-K Range of Motion Start: 10/26/22 17:46 Freq: Status: Active Protocol: Document 10/26/22 12:50 DCW (Rec: 10/26/22 17:54 DCW [id number]) Hip Goniometric Range of Motion Hip Right Passive Hip ROM WFL No Testing Position Supine Flexion w/Knee Flexed 90 Comments Horizontal adduction hard end feel at 0? PT-OP-L Special Tests Start: 10/26/22 17:46 Freq: Status: Active Protocol: Document 10/26/22 12:50 DCW (Rec: 10/26/22 17:54 DCW [id number]) Special Tests Hip Special Tests Scour Test Test Results Rough joint surface R Dudley Test Results Positive R Piriformis Test Results Positive R FAUSTO Test Results R hip stiffness PT-OP-M Strength Start: 10/26/22 17:46 Freq: Status: Active Protocol: Document 10/26/22 12:50 DCW (Rec: 10/26/22 17:54 DCW [id number]) Hip Strength Hip Manual Muscle Testing Right Flexion (L2) 3+ Fair+ Abduction 4- Good- Adduction 4+ Good+ External Rotation 4 Good Internal Rotation 4- Good- Left Flexion (L2) 4+ Good+ Abduction 4+ Good+ Adduction 4+ Good+ External Rotation 4+ Good+ Internal Rotation 4+ Good+ Knee Strength Knee Manual Muscle Testing Right Flexion (S2) 4+ Good+ Extension (L3) 4+ Good+ Left Flexion (S2) 5 Normal Extension (L3) 5 Normal Ankle/Foot Strength Ankle and Foot Manual Muscle Testing Right Dorsiflexion (L4) 5 Normal Left Dorsiflexion (L4) 5 Normal PT-OP-Q Treatments Start: 10/26/22 17:46 Freq: Status: Active Protocol: Document 11/24/22 11:00 DCW (Rec: 11/24/22 11:42 DCW [id number]) Therapeutic Exercises Sitting Exercises Piriformis Sitting Exercise Name Figure-4 Side right Standing Exercises Step-ups Standing Exercise Name Step-ups Side bilateral Equipment Used 6 step Comments stopped d/t pain BOSU Lunge Standing Exercise Name BOSU Lunge Side bilateral Equipment Used Blue BOSU Toe-taps Standing Exercise Name Toe-taps Side bilateral Resistance 5# Equipment Used 6 step Other Exercises Anupam Other Exercise Name Side-stepping over single anupam Resistance 5# Manual Therapy Treatment Soft Tissue Mobilization Piriformis Body Location R Piriformis Mobilization Type Strumming,Sustained Pressure Intensity/Depth Moderate Body Position Sidelying Hip Flexors Body Location R Hip Flexors Mobilization Type Strumming,Sustained Pressure Intensity/Depth Moderate Body Position Hooklying Manual Traction Lower Extremity Details Long-axis R LE traction Hip Details Short-axis /c strap Body Position Hooklying Comments Inferiolateral pull PT-OP-T Assessment and Plan Start: 10/26/22 17:46 Freq: Status: Active Protocol: Document 11/24/22 11:00 DCW (Rec: 11/24/22 11:42 DCW [id number]) Physical Therapy Assessment Impairments Impairments Functional Activities, Functional Mobility,Pain,ROM, Soft Tissue Mobility,Strength, Tone Goals Three Impairment Significantly restricted R hip ROM, limited to 90? flexion and 0? horiz add Group Home Goal (LTG) Pt to demonstrate improved R hip PROM to 120? flexion in order to improve ability to perform piriformis stretching exercises LTG Duration 01/24/23 Two Impairment Pt exhibits right hip weakness , MMT for hip flexion tests as 3+/5 Group Home Goal (LTG) Pt to improve right hip flexion MMT to at worst 4/5 in order to improve ability to lift right leg into her vehicle without pain. LTG Duration 01/24/23 One Impairment Pt does not have an appropriate home exercise program Short Term Goal (STG) Pt to be independent and compliant with an appropriate HEP STG Duration 11/25/22 Assessment Summary Assessment Increased tenderness with some strengthening activities, mainly focused in right posterior hip. Pt very responsive to LE traction Physical Therapy Plan Frequency and Duration Frequency of Treatment 2x/Week Plan of Care Start Date 10/26/22 Plan of Care End Date 01/24/23 Therapeutic Interventions Therapeutic Interventions Home Exercise Program,Joint Mobilizations,Manual Therapy, Patient/Caregiver Education, Self-Care/Home Management,Soft Tissue Mobilization, Therapeutic Activities, Therapeutic Exercises Modalities Cold Pack/Ice Massage,Electric Stimulation,Hot Packs, Ultrasound Next Visit Focus/Plan Next Note Type Treatment Note Next Visit Plan Stretching/flexibility, LE strengthening, STM
--- NOTE | 2022-11-30 12:48 | PT.OTN ---
Current Diagnoses Unilateral primary osteoarthritis, right hip (11/30/22) Pain in right hip (11/30/22) Pain in unspecified hip (11/30/22) Stiffness of right hip, not elsewhere classified (11/30/22) Physical Therapy Treatment Note PT-OP-A Visit Information Start: 10/26/22 17:46 Freq: Status: Active Protocol: Document 11/30/22 12:00 DCW (Rec: 11/30/22 12:48 DCW [id number]) Out-Patient Physical Therapy Visit Information Visit Information Visit Type Treatment Note Visit Start Time 12:00 Visit Stop Time 12:45 Total Visit Minutes 45 Visit Number 8 Number of COMMUNICATIONS SPECIALIST Visits 0 Evaluation Information Evaluation Date 10/26/22 PT-OP-B Current Condition Start: 10/26/22 17:46 Freq: Status: Active Protocol: Document 10/26/22 12:50 DCW (Rec: 10/27/22 09:55 DCW [id number]) Current Condition History of Current Condition Onset Date 2020 Current Complaints R hip pain, stiffness History of Current Condition Pt is an 87 year old female presenting with a complicated history of life-long arthritis . Pt reports she was originally diagnosed with arthritis at the age of 19, was able to get treatment with various lotions and salves, which helped her life her life until she moved to [place], which with the rain and cold she worsened again. Was able to somewhat limit it's effects with Yoga and naturopathic interventions until she moved to [place] in 1995, and with the change in climate her symptoms almost completely disappeared until 2020, when she began to experience increased pain and stiffness. Has been diagnosed with spinal stenosis and severe right hip osteoarthritis. Notes she has fairly constant pain, but does not allow it to stop her from doing anything. Still regularly does yoga and tries to do a lot of stretching. Feels the pain most when trying to stand up after an extended time sitting, or when trying to lift her right leg into her car. Prior Treatments and Tests Hip x-ray: IMPRESSION: Asymmetric moderate to severe right hip joint osteoarthritis . No hip fracture or dislocation. No evidence of avascular necrosis . Alfred Patel M.D. on 09/03/2022 Lumbar MRI: IMPRESSION: Multilevel listhesis as described above. Discogenic marrow edema at T11-T12, a potential source of nonradicular axial back pain. Gpuj-cu-qezcynve multilevel multifactorial degenerative changes with areas of potential focal nerve root impingement as discussed above . Correlate for any corresponding radicular symptoms. Don Colon M.D. on 11/14/2021 PT-OP-C Subjective Start: 10/26/22 17:46 Freq: Status: Active Protocol: Document 11/30/22 12:00 DCW (Rec: 11/30/22 12:48 DCW [id number]) OP-PT Subjective Patient Comments Patient Comments I was good after being here, but I had a terrible weekend. Wednesday morning, before I got out of bed, I stretched, and had a terrible pain in my knee , it was so bad I started crying. It calmed down after 10 minutes, and I put an ointment on it, which helped some. PT-OP-F Manual Assessment Start: 10/26/22 17:46 Freq: Status: Active Protocol: Document 10/26/22 12:50 DCW (Rec: 10/26/22 17:54 DCW [id number]) Manual Assessments Soft Tissue Assessment Soft Tissue Mobility Assessment Moderate tone with tenderness to palpation 2/4: pain with wincing along R TFL/ITB, Piriformis, Hip flexors PT-OP-K Range of Motion Start: 10/26/22 17:46 Freq: Status: Active Protocol: Document 10/26/22 12:50 DCW (Rec: 10/26/22 17:54 DCW [id number]) Hip Goniometric Range of Motion Hip Right Passive Hip ROM WFL No Testing Position Supine Flexion w/Knee Flexed 90 Comments Horizontal adduction hard end feel at 0? PT-OP-L Special Tests Start: 10/26/22 17:46 Freq: Status: Active Protocol: Document 10/26/22 12:50 DCW (Rec: 10/26/22 17:54 DCW [id number]) Special Tests Hip Special Tests Scour Test Test Results Rough joint surface R Dudley Test Results Positive R Piriformis Test Results Positive R FAUSTO Test Results R hip stiffness PT-OP-M Strength Start: 10/26/22 17:46 Freq: Status: Active Protocol: Document 10/26/22 12:50 DCW (Rec: 10/26/22 17:54 DCW [id number]) Hip Strength Hip Manual Muscle Testing Right Flexion (L2) 3+ Fair+ Abduction 4- Good- Adduction 4+ Good+ External Rotation 4 Good Internal Rotation 4- Good- Left Flexion (L2) 4+ Good+ Abduction 4+ Good+ Adduction 4+ Good+ External Rotation 4+ Good+ Internal Rotation 4+ Good+ Knee Strength Knee Manual Muscle Testing Right Flexion (S2) 4+ Good+ Extension (L3) 4+ Good+ Left Flexion (S2) 5 Normal Extension (L3) 5 Normal Ankle/Foot Strength Ankle and Foot Manual Muscle Testing Right Dorsiflexion (L4) 5 Normal Left Dorsiflexion (L4) 5 Normal PT-OP-Q Treatments Start: 10/26/22 17:46 Freq: Status: Active Protocol: Document 11/30/22 12:00 DCW (Rec: 11/30/22 12:48 DCW [id number]) Therapeutic Exercises Supine Exercises Heel slides Supine Exercise Name Heel slides Side right Standing Exercises Marching Standing Exercise Name Marching Side bilateral Resistance 4# Hamstring Curls Standing Exercise Name HS Curls Side bilateral Resistance 4# Calf stretch Standing Exercise Name Calf stretch/Heel raises Equipment Used MISAEL BOSU Lunge Standing Exercise Name BOSU Lunge Side bilateral Equipment Used Blue BOSU Manual Therapy Treatment Soft Tissue Mobilization Calf Body Location R Calf Lat>Med Hip Flexors Body Location R Hip Flexors Mobilization Type Strumming,Sustained Pressure Intensity/Depth Moderate Body Position Hooklying Joint Mobilizations Knee Joint R Knee Direction P<->A Manual Traction Lower Extremity Details Long-axis R LE traction PT-OP-T Assessment and Plan Start: 10/26/22 17:46 Freq: Status: Active Protocol: Document 11/30/22 12:00 DCW (Rec: 11/30/22 12:48 DCW [id number]) Physical Therapy Assessment Impairments Impairments Functional Activities, Functional Mobility,Pain,ROM, Soft Tissue Mobility,Strength, Tone Goals Three Impairment Significantly restricted R hip ROM, limited to 90? flexion and 0? horiz add Fdc Goal (LTG) Pt to demonstrate improved R hip PROM to 120? flexion in order to improve ability to perform piriformis stretching exercises LTG Duration 01/24/23 Two Impairment Pt exhibits right hip weakness , MMT for hip flexion tests as 3+/5 Fdc Goal (LTG) Pt to improve right hip flexion MMT to at worst 4/5 in order to improve ability to lift right leg into her vehicle without pain. LTG Duration 01/24/23 One Impairment Pt does not have an appropriate home exercise program Short Term Goal (STG) Pt to be independent and compliant with an appropriate HEP STG Duration 11/25/22 Assessment Summary Assessment Increased right knee pain today, appears to be associated with tightness in gastroc, felt much better after stretching and STM, added calf stretching to HEP Physical Therapy Plan Frequency and Duration Frequency of Treatment 2x/Week Plan of Care Start Date 10/26/22 Plan of Care End Date 01/24/23 Therapeutic Interventions Therapeutic Interventions Home Exercise Program,Joint Mobilizations,Manual Therapy, Patient/Caregiver Education, Self-Care/Home Management,Soft Tissue Mobilization, Therapeutic Activities, Therapeutic Exercises Modalities Cold Pack/Ice Massage,Electric Stimulation,Hot Packs, Ultrasound Next Visit Focus/Plan Next Note Type Treatment Note Next Visit Plan Stretching/flexibility, LE strengthening, STM
--- NOTE | 2022-12-03 17:16 | PT.OTN ---
Current Diagnoses Unilateral primary osteoarthritis, right hip (12/03/22) Pain in right hip (12/03/22) Pain in unspecified hip (12/03/22) Stiffness of right hip, not elsewhere classified (12/03/22) Physical Therapy Treatment Note PT-OP-A Visit Information Start: 10/26/22 17:46 Freq: Status: Active Protocol: Document 12/03/22 11:45 SW (Rec: 12/03/22 17:16 SW [id number]) Out-Patient Physical Therapy Visit Information Visit Information Visit Type Treatment Note Visit Start Time 11:47 Visit Stop Time 12:30 Total Visit Minutes 43 Visit Number 9 Number of PAINTER AND GRADER CORK Visits 1 PT-OP-B Current Condition Start: 10/26/22 17:46 Freq: Status: Active Protocol: Document 10/26/22 12:50 DCW (Rec: 10/27/22 09:55 DCW [id number]) Current Condition History of Current Condition Onset Date 2020 Current Complaints R hip pain, stiffness History of Current Condition Pt is an 87 year old female presenting with a complicated history of life-long arthritis . Pt reports she was originally diagnosed with arthritis at the age of 19, was able to get treatment with various lotions and salves, which helped her life her life until she moved to [place], which with the rain and cold she worsened again. Was able to somewhat limit it's effects with Yoga and naturopathic interventions until she moved to [place] in 1995, and with the change in climate her symptoms almost completely disappeared until 2020, when she began to experience increased pain and stiffness. Has been diagnosed with spinal stenosis and severe right hip osteoarthritis. Notes she has fairly constant pain, but does not allow it to stop her from doing anything. Still regularly does yoga and tries to do a lot of stretching. Feels the pain most when trying to stand up after an extended time sitting, or when trying to lift her right leg into her car. Prior Treatments and Tests Hip x-ray: IMPRESSION: Asymmetric moderate to severe right hip joint osteoarthritis . No hip fracture or dislocation. No evidence of avascular necrosis . Alfred Patel M.D. on 09/03/2022 Lumbar MRI: IMPRESSION: Multilevel listhesis as described above. Discogenic marrow edema at T11-T12, a potential source of nonradicular axial back pain. [id number] multilevel multifactorial degenerative changes with areas of potential focal nerve root impingement as discussed above . Correlate for any corresponding radicular symptoms. Don Colon M.D. on 11/14/2021 PT-OP-C Subjective Start: 10/26/22 17:46 Freq: Status: Active Protocol: Document 12/03/22 11:45 SW (Rec: 12/03/22 12:56 SW [id number]) OP-PT Subjective Patient Comments Patient Comments Pt reports everyday is different. Pn is a /10. PT-OP-F Manual Assessment Start: 10/26/22 17:46 Freq: Status: Active Protocol: Document 10/26/22 12:50 DCW (Rec: 10/26/22 17:54 DCW [id number]) Manual Assessments Soft Tissue Assessment Soft Tissue Mobility Assessment Moderate tone with tenderness to palpation 2/4: pain with wincing along R TFL/ITB, Piriformis, Hip flexors PT-OP-K Range of Motion Start: 10/26/22 17:46 Freq: Status: Active Protocol: Document 10/26/22 12:50 DCW (Rec: 10/26/22 17:54 DCW [id number]) Hip Goniometric Range of Motion Hip Right Passive Hip ROM WFL No Testing Position Supine Flexion w/Knee Flexed 90 Comments Horizontal adduction hard end feel at 0? PT-OP-L Special Tests Start: 10/26/22 17:46 Freq: Status: Active Protocol: Document 10/26/22 12:50 DCW (Rec: 10/26/22 17:54 DCW [id number]) Special Tests Hip Special Tests Scour Test Test Results Rough joint surface R Dudley Test Results Positive R Piriformis Test Results Positive R FAUSTO Test Results R hip stiffness PT-OP-M Strength Start: 10/26/22 17:46 Freq: Status: Active Protocol: Document 10/26/22 12:50 DCW (Rec: 10/26/22 17:54 DCW [id number]) Hip Strength Hip Manual Muscle Testing Right Flexion (L2) 3+ Fair+ Abduction 4- Good- Adduction 4+ Good+ External Rotation 4 Good Internal Rotation 4- Good- Left Flexion (L2) 4+ Good+ Abduction 4+ Good+ Adduction 4+ Good+ External Rotation 4+ Good+ Internal Rotation 4+ Good+ Knee Strength Knee Manual Muscle Testing Right Flexion (S2) 4+ Good+ Extension (L3) 4+ Good+ Left Flexion (S2) 5 Normal Extension (L3) 5 Normal Ankle/Foot Strength Ankle and Foot Manual Muscle Testing Right Dorsiflexion (L4) 5 Normal Left Dorsiflexion (L4) 5 Normal PT-OP-Q Treatments Start: 10/26/22 17:46 Freq: Status: Active Protocol: Document 12/03/22 11:45 SW (Rec: 12/03/22 12:56 SW [id number]) Gym Equipment Shuttle Recovery Hip/Knee stretch Details low load stretch Resistance 25 Shuttle Recovery Platform Stable Reps/Time Dc'd d/t pn Therapeutic Exercises Sitting Exercises Knee flex stretch Sitting Exercise Name Seated Knee flex stretch Reps/Minutes x 30 sec Standing Exercises ITB Stretch Reps/Minutes 2 x 15 Quad Stretch Reps/Minutes 3 x 30 Side Steps Resistance Blue TB Reps/Minutes 2 x 10 ft ea Mini squat Standing Exercise Name Mini Squat Equipment Used @ counter Comments cues for knee alignment and lumbar stabilization Calf stretch Standing Exercise Name Calf stretch/Heel raises Equipment Used MISAEL BOSU Lunge Standing Exercise Name BOSU Lunge Side bilateral Equipment Used Blue BOSU Manual Therapy Treatment Soft Tissue Mobilization Piriformis Body Location R Piriformis Mobilization Type Strumming,Sustained Pressure Intensity/Depth Moderate Body Position Sidelying Hip Flexors Body Location R Hip Flexors Mobilization Type Strumming,Sustained Pressure Intensity/Depth Moderate Body Position Hooklying PT-OP-T Assessment and Plan Start: 10/26/22 17:46 Freq: Status: Active Protocol: Document 12/03/22 11:45 SW (Rec: 12/03/22 12:56 [id number]) Physical Therapy Assessment Goals Three Impairment Significantly restricted R hip ROM, limited to 90? flexion and 0? horiz add Penitentiary Goal (LTG) Pt to demonstrate improved R hip PROM to 120? flexion in order to improve ability to perform piriformis stretching exercises LTG Duration 01/24/23 Two Impairment Pt exhibits right hip weakness , MMT for hip flexion tests as 3+/5 Penitentiary Goal (LTG) Pt to improve right hip flexion MMT to at worst 4/5 in order to improve ability to lift right leg into her vehicle without pain. LTG Duration 01/24/23 One Impairment Pt does not have an appropriate home exercise program Short Term Goal (STG) Pt to be independent and compliant with an appropriate HEP STG Duration 11/25/22 Assessment Summary Assessment Pt came in with increased pain today. Started with STM to relax the tissues and decrease pain, good response, decreased pain post. Pain with flexion of both R hip and R knee simultaneously. Pain in posterior R hip with mini squats, relieved with cues for activation of glutes when ascending. Physical Therapy Plan Frequency and Duration Frequency of Treatment 2x/Week Plan of Care Start Date 10/26/22 Plan of Care End Date 01/24/23 Therapeutic Interventions Therapeutic Interventions Home Exercise Program,Joint Mobilizations,Manual Therapy, Patient/Caregiver Education, Self-Care/Home Management,Soft Tissue Mobilization, Therapeutic Activities, Therapeutic Exercises Modalities Cold Pack/Ice Massage,Electric Stimulation,Hot Packs, Ultrasound Next Visit Focus/Plan Next Note Type Treatment Note Next Visit Plan Stretching/flexibility, LE strengthening, STM
--- NOTE | 2022-12-07 12:46 | PT.OTN ---
Current Diagnoses Unilateral primary osteoarthritis, right hip (12/07/22) Pain in right hip (12/07/22) Pain in unspecified hip (12/07/22) Stiffness of right hip, not elsewhere classified (12/07/22) Physical Therapy Treatment Note PT-OP-A Visit Information Start: 10/26/22 17:46 Freq: Status: Active Protocol: Document 12/07/22 12:00 DCW (Rec: 12/07/22 12:46 DCW [id number]) Out-Patient Physical Therapy Visit Information Visit Information Visit Type Treatment Note Visit Start Time 12:00 Visit Stop Time 12:45 Total Visit Minutes 45 Visit Number 10 Number of SURVEY FIELD TECHNICIAN Visits 0 Evaluation Information Evaluation Date 10/26/22 PT-OP-B Current Condition Start: 10/26/22 17:46 Freq: Status: Active Protocol: Document 10/26/22 12:50 DCW (Rec: 10/27/22 09:55 DCW [id number]) Current Condition History of Current Condition Onset Date 2020 Current Complaints R hip pain, stiffness History of Current Condition Pt is an 87 year old female presenting with a complicated history of life-long arthritis . Pt reports she was originally diagnosed with arthritis at the age of 19, was able to get treatment with various lotions and salves, which helped her life her life until she moved to [place], which with the rain and cold she worsened again. Was able to somewhat limit it's effects with Yoga and naturopathic interventions until she moved to [place] in 1995, and with the change in climate her symptoms almost completely disappeared until 2020, when she began to experience increased pain and stiffness. Has been diagnosed with spinal stenosis and severe right hip osteoarthritis. Notes she has fairly constant pain, but does not allow it to stop her from doing anything. Still regularly does yoga and tries to do a lot of stretching. Feels the pain most when trying to stand up after an extended time sitting, or when trying to lift her right leg into her car. Prior Treatments and Tests Hip x-ray: IMPRESSION: Asymmetric moderate to severe right hip joint osteoarthritis . No hip fracture or dislocation. No evidence of avascular necrosis . Alfred Patel M.D. on 09/03/2022 Lumbar MRI: IMPRESSION: Multilevel listhesis as described above. Discogenic marrow edema at T11-T12, a potential source of nonradicular axial back pain. [id number] multilevel multifactorial degenerative changes with areas of potential focal nerve root impingement as discussed above . Correlate for any corresponding radicular symptoms. Don Colon M.D. on 11/14/2021 PT-OP-C Subjective Start: 10/26/22 17:46 Freq: Status: Active Protocol: Document 12/07/22 12:00 DCW (Rec: 12/07/22 12:46 DCW [id number]) OP-PT Subjective Patient Comments Patient Comments Yesterday and today I did at least 45 minutes on my glutes. Reports she has an easier time lifting her leg up. I really feel so much better. PT-OP-F Manual Assessment Start: 10/26/22 17:46 Freq: Status: Active Protocol: Document 10/26/22 12:50 DCW (Rec: 10/26/22 17:54 DCW [id number]) Manual Assessments Soft Tissue Assessment Soft Tissue Mobility Assessment Moderate tone with tenderness to palpation 2/4: pain with wincing along R TFL/ITB, Piriformis, Hip flexors PT-OP-K Range of Motion Start: 10/26/22 17:46 Freq: Status: Active Protocol: Document 10/26/22 12:50 DCW (Rec: 10/26/22 17:54 DCW [id number]) Hip Goniometric Range of Motion Hip Right Passive Hip ROM WFL No Testing Position Supine Flexion w/Knee Flexed 90 Comments Horizontal adduction hard end feel at 0? PT-OP-L Special Tests Start: 10/26/22 17:46 Freq: Status: Active Protocol: Document 10/26/22 12:50 DCW (Rec: 10/26/22 17:54 DCW [id number]) Special Tests Hip Special Tests Scour Test Test Results Rough joint surface R Dudley Test Results Positive R Piriformis Test Results Positive R FAUSTO Test Results R hip stiffness PT-OP-M Strength Start: 10/26/22 17:46 Freq: Status: Active Protocol: Document 10/26/22 12:50 DCW (Rec: 10/26/22 17:54 DCW [id number]) Hip Strength Hip Manual Muscle Testing Right Flexion (L2) 3+ Fair+ Abduction 4- Good- Adduction 4+ Good+ External Rotation 4 Good Internal Rotation 4- Good- Left Flexion (L2) 4+ Good+ Abduction 4+ Good+ Adduction 4+ Good+ External Rotation 4+ Good+ Internal Rotation 4+ Good+ Knee Strength Knee Manual Muscle Testing Right Flexion (S2) 4+ Good+ Extension (L3) 4+ Good+ Left Flexion (S2) 5 Normal Extension (L3) 5 Normal Ankle/Foot Strength Ankle and Foot Manual Muscle Testing Right Dorsiflexion (L4) 5 Normal Left Dorsiflexion (L4) 5 Normal PT-OP-Q Treatments Start: 10/26/22 17:46 Freq: Status: Active Protocol: Document 12/07/22 12:00 DCW (Rec: 12/07/22 12:46 DCW [id number]) Therapeutic Exercises Supine Exercises LTR Supine Exercise Name LTR Side bilateral Standing Exercises Hamstring Curls Standing Exercise Name HS Curls Side bilateral Resistance 5# Calf stretch Standing Exercise Name Calf stretch/Heel raises Equipment Used MISAEL BOSU Lunge Standing Exercise Name BOSU Lunge Side bilateral Equipment Used Blue BOSU Other Exercises Resisted Ambulation Other Exercise Name Resisted side-stepping Side bilateral Resistance Green Anupam Other Exercise Name Side-stepping over single anupam Resistance 5# Manual Therapy Treatment Soft Tissue Mobilization Piriformis Body Location R Piriformis Mobilization Type Strumming,Sustained Pressure Intensity/Depth Moderate Body Position Sidelying Hip Flexors Body Location R Hip Flexors Mobilization Type Strumming,Sustained Pressure Intensity/Depth Moderate Body Position Hooklying Manual Traction Lower Extremity Details Long-axis R LE traction PT-OP-T Assessment and Plan Start: 10/26/22 17:46 Freq: Status: Active Protocol: Document 12/07/22 12:00 DCW (Rec: 12/07/22 12:46 DCW [id number]) Physical Therapy Assessment Impairments Impairments Functional Activities, Functional Mobility,Pain,ROM, Soft Tissue Mobility,Strength, Tone Goals Three Impairment Significantly restricted R hip ROM, limited to 90? flexion and 0? horiz add Skilled Nursing Goal (LTG) Pt to demonstrate improved R hip PROM to 120? flexion in order to improve ability to perform piriformis stretching exercises LTG Duration 01/24/23 Two Impairment Pt exhibits right hip weakness , MMT for hip flexion tests as 3+/5 Sand Technician Goal (LTG) Pt to improve right hip flexion MMT to at worst 4/5 in order to improve ability to lift right leg into her vehicle without pain. LTG Duration 01/24/23 One Impairment Pt does not have an appropriate home exercise program Short Term Goal (STG) Pt to be independent and compliant with an appropriate HEP STG Duration 11/25/22 Assessment Summary Assessment Pt performing much better in all areas, have been very consistent with HEP. Improved ability to lift right leg into her vehicle, significantly improved R hip flexion ROM. May be approaching discharge next week. Physical Therapy Plan Frequency and Duration Frequency of Treatment 2x/Week Plan of Care Start Date 10/26/22 Plan of Care End Date 01/24/23 Therapeutic Interventions Therapeutic Interventions Home Exercise Program,Joint Mobilizations,Manual Therapy, Patient/Caregiver Education, Self-Care/Home Management,Soft Tissue Mobilization, Therapeutic Activities, Therapeutic Exercises Modalities Cold Pack/Ice Massage,Electric Stimulation,Hot Packs, Ultrasound Next Visit Focus/Plan Next Note Type Treatment Note Next Visit Plan Stretching/flexibility, LE strengthening, STM
--- NOTE | 2022-12-14 12:44 | PT.OTN ---
Current Diagnoses Unilateral primary osteoarthritis, right hip (12/14/22) Pain in right hip (12/14/22) Pain in unspecified hip (12/14/22) Stiffness of right hip, not elsewhere classified (12/14/22) Physical Therapy Treatment Note PT-OP-A Visit Information Start: 10/26/22 17:46 Freq: Status: Active Protocol: Document 12/14/22 12:00 DCW (Rec: 12/14/22 12:44 DCW [id number]) Out-Patient Physical Therapy Visit Information Visit Information Visit Type Treatment Note Visit Start Time 12:00 Visit Stop Time 12:45 Total Visit Minutes 45 Visit Number 11 Number of CLERICAL AIDE TEACHER Visits 0 Evaluation Information Evaluation Date 10/26/22 PT-OP-B Current Condition Start: 10/26/22 17:46 Freq: Status: Active Protocol: Document 10/26/22 12:50 DCW (Rec: 10/27/22 09:55 DCW [id number]) Current Condition History of Current Condition Onset Date 2020 Current Complaints R hip pain, stiffness History of Current Condition Pt is an 87 year old female presenting with a complicated history of life-long arthritis . Pt reports she was originally diagnosed with arthritis at the age of 19, was able to get treatment with various lotions and salves, which helped her life her life until she moved to [place], which with the rain and cold she worsened again. Was able to somewhat limit it's effects with Yoga and naturopathic interventions until she moved to [place] in 1995, and with the change in climate her symptoms almost completely disappeared until 2020, when she began to experience increased pain and stiffness. Has been diagnosed with spinal stenosis and severe right hip osteoarthritis. Notes she has fairly constant pain, but does not allow it to stop her from doing anything. Still regularly does yoga and tries to do a lot of stretching. Feels the pain most when trying to stand up after an extended time sitting, or when trying to lift her right leg into her car. Prior Treatments and Tests Hip x-ray: IMPRESSION: Asymmetric moderate to severe right hip joint osteoarthritis . No hip fracture or dislocation. No evidence of avascular necrosis . Alfred Patel M.D. on 09/03/2022 Lumbar MRI: IMPRESSION: Multilevel listhesis as described above. Discogenic marrow edema at T11-T12, a potential source of nonradicular axial back pain. [id number] multilevel multifactorial degenerative changes with areas of potential focal nerve root impingement as discussed above . Correlate for any corresponding radicular symptoms. Don Colon M.D. on 11/14/2021 PT-OP-C Subjective Start: 10/26/22 17:46 Freq: Status: Active Protocol: Document 12/14/22 12:00 DCW (Rec: 12/14/22 12:44 DCW [id number]) OP-PT Subjective Patient Comments Patient Comments I felt great for three whole days after my last appointment . PT-OP-F Manual Assessment Start: 10/26/22 17:46 Freq: Status: Active Protocol: Document 12/14/22 12:00 DCW (Rec: 12/14/22 12:15 DCW [id number]) Manual Assessments Soft Tissue Assessment Soft Tissue Mobility Assessment Moderate tone with tenderness to palpation 1/4: Complaint of pain along R TFL/ITB, Piriformis, Hip flexors PT-OP-K Range of Motion Start: 10/26/22 17:46 Freq: Status: Active Protocol: Document 12/14/22 12:00 DCW (Rec: 12/14/22 12:15 DCW [id number]) Hip Goniometric Range of Motion Hip Right Passive Hip ROM WFL No Testing Position Supine Flexion w/Knee Flexed 126 Comments Horizontal adduction: 14? PT-OP-L Special Tests Start: 10/26/22 17:46 Freq: Status: Active Protocol: Document 12/14/22 12:00 DCW (Rec: 12/14/22 12:15 DCW [id number]) Special Tests Hip Special Tests Scour Test Test Results Rough joint surface R Dudley Test Results Negative Piriformis Test Results Negative FAUSTO Test Results R ipsilateral SI pain PT-OP-M Strength Start: 10/26/22 17:46 Freq: Status: Active Protocol: Document 12/14/22 12:00 DCW (Rec: 12/14/22 12:15 DCW [id number]) Hip Strength Hip Manual Muscle Testing Right Flexion (L2) 3+ Fair+ Abduction 4 Good Adduction 4+ Good+ External Rotation 4+ Good+ Internal Rotation 4 Good Left Flexion (L2) 5 Normal Abduction 4+ Good+ Adduction 4+ Good+ External Rotation 5 Normal Internal Rotation 5 Normal Knee Strength Knee Manual Muscle Testing Right Flexion (S2) 4+ Good+ Extension (L3) 4+ Good+ Left Flexion (S2) 5 Normal Extension (L3) 5 Normal Ankle/Foot Strength Ankle and Foot Manual Muscle Testing Right Dorsiflexion (L4) 5 Normal Left Dorsiflexion (L4) 5 Normal PT-OP-Q Treatments Start: 10/26/22 17:46 Freq: Status: Active Protocol: Document 12/14/22 12:00 DCW (Rec: 12/14/22 12:44 DCW [id number]) Therapeutic Exercises Standing Exercises ITB Stretch Standing Exercise Name Wall ITB stretch Side right Reps/Minutes 3x10 Hamstring Curls Standing Exercise Name HS Curls Side bilateral Resistance 5# Calf stretch Standing Exercise Name Calf stretch/Heel raises Equipment Used MISAEL Step-ups Standing Exercise Name Step-ups Side bilateral Equipment Used 6 step BOSU Lunge Standing Exercise Name BOSU Lunge Side bilateral Equipment Used Blue BOSU Other Exercises Anupam Other Exercise Name Side-stepping over single anupam Resistance 5# Manual Therapy Treatment Soft Tissue Mobilization ITB Body Location R ITB Mobilization Type Strumming,Sustained Pressure, Trigger Point Release Intensity/Depth Superficial Body Position Hooklying Piriformis Body Location R Piriformis Mobilization Type Strumming,Sustained Pressure Intensity/Depth Moderate Body Position Sidelying Hip Flexors Body Location R Hip Flexors Mobilization Type Strumming,Sustained Pressure Intensity/Depth Moderate Body Position Hooklying Manual Traction Lower Extremity Details Long-axis R LE traction PT-OP-T Assessment and Plan Start: 10/26/22 17:46 Freq: Status: Active Protocol: Document 12/14/22 12:00 DCW (Rec: 12/14/22 12:44 DCW [id number]) Physical Therapy Assessment Impairments Impairments Functional Activities, Functional Mobility,Pain,ROM, Soft Tissue Mobility,Strength, Tone Goals Three Impairment Significantly restricted R hip ROM, limited to 90? flexion and 0? horiz add [facility]cf Goal (LTG) Pt to demonstrate improved R hip PROM to 120? flexion in order to improve ability to perform piriformis stretching exercises LTG Duration 01/24/23 Two Impairment Pt exhibits right hip weakness , MMT for hip flexion tests as 3+/5 Head Counselor Goal (LTG) Pt to improve right hip flexion MMT to at worst 4/5 in order to improve ability to lift right leg into her vehicle without pain. LTG Duration 01/24/23 One Impairment Pt does not have an appropriate home exercise program Short Term Goal (STG) Pt to be independent and compliant with an appropriate HEP STG Duration 11/25/22 Assessment Summary Assessment Pt continues to do very well, however continues to regress a bit in between PT sessions. Would like to add additional appointments and continue to work on manual treatment, strengthening, and HEP until she is able to report extended benefit following treatment sessions. Physical Therapy Plan Frequency and Duration Frequency of Treatment 2x/Week Plan of Care Start Date 10/26/22 Plan of Care End Date 01/24/23 Therapeutic Interventions Therapeutic Interventions Home Exercise Program,Joint Mobilizations,Manual Therapy, Patient/Caregiver Education, Self-Care/Home Management,Soft Tissue Mobilization, Therapeutic Activities, Therapeutic Exercises Modalities Cold Pack/Ice Massage,Electric Stimulation,Hot Packs, Ultrasound Next Visit Focus/Plan Next Note Type Treatment Note Next Visit Plan Stretching/flexibility, LE strengthening, STM
--- NOTE | 2022-12-17 12:47 | PT.OTN ---
Current Diagnoses Unilateral primary osteoarthritis, right hip (12/17/22) Pain in right hip (12/17/22) Pain in unspecified hip (12/17/22) Stiffness of right hip, not elsewhere classified (12/17/22) Physical Therapy Treatment Note PT-OP-A Visit Information Start: 10/26/22 17:46 Freq: Status: Active Protocol: Document 12/17/22 12:00 DCW (Rec: 12/17/22 12:47 DCW [id number]) Out-Patient Physical Therapy Visit Information Visit Information Visit Type Treatment Note Visit Start Time 12:00 Visit Stop Time 12:45 Total Visit Minutes 45 Visit Number 12 Number of PAYABLE MANAGER Visits 0 Evaluation Information Evaluation Date 10/26/22 PT-OP-B Current Condition Start: 10/26/22 17:46 Freq: Status: Active Protocol: Document 10/26/22 12:50 DCW (Rec: 10/27/22 09:55 DCW [id number]) Current Condition History of Current Condition Onset Date 2020 Current Complaints R hip pain, stiffness History of Current Condition Pt is an 87 year old female presenting with a complicated history of life-long arthritis . Pt reports she was originally diagnosed with arthritis at the age of 19, was able to get treatment with various lotions and salves, which helped her life her life until she moved to [place], which with the rain and cold she worsened again. Was able to somewhat limit it's effects with Yoga and naturopathic interventions until she moved to [place] in 1995, and with the change in climate her symptoms almost completely disappeared until 2020, when she began to experience increased pain and stiffness. Has been diagnosed with spinal stenosis and severe right hip osteoarthritis. Notes she has fairly constant pain, but does not allow it to stop her from doing anything. Still regularly does yoga and tries to do a lot of stretching. Feels the pain most when trying to stand up after an extended time sitting, or when trying to lift her right leg into her car. Prior Treatments and Tests Hip x-ray: IMPRESSION: Asymmetric moderate to severe right hip joint osteoarthritis . No hip fracture or dislocation. No evidence of avascular necrosis . Alfred Patel M.D. on 09/03/2022 Lumbar MRI: IMPRESSION: Multilevel listhesis as described above. Discogenic marrow edema at T11-T12, a potential source of nonradicular axial back pain. [id number] multilevel multifactorial degenerative changes with areas of potential focal nerve root impingement as discussed above . Correlate for any corresponding radicular symptoms. Don Colon M.D. on 11/14/2021 PT-OP-C Subjective Start: 10/26/22 17:46 Freq: Status: Active Protocol: Document 12/17/22 12:00 DCW (Rec: 12/17/22 12:47 DCW [id number]) OP-PT Subjective Patient Comments Patient Comments Today is not my day. PT-OP-F Manual Assessment Start: 10/26/22 17:46 Freq: Status: Active Protocol: Document 12/14/22 12:00 DCW (Rec: 12/14/22 12:15 DCW [id number]) Manual Assessments Soft Tissue Assessment Soft Tissue Mobility Assessment Moderate tone with tenderness to palpation 1/4: Complaint of pain along R TFL/ITB, Piriformis, Hip flexors PT-OP-K Range of Motion Start: 10/26/22 17:46 Freq: Status: Active Protocol: Document 12/14/22 12:00 DCW (Rec: 12/14/22 12:15 DCW [id number]) Hip Goniometric Range of Motion Hip Right Passive Hip ROM WFL No Testing Position Supine Flexion w/Knee Flexed 126 Comments Horizontal adduction: 14? PT-OP-L Special Tests Start: 10/26/22 17:46 Freq: Status: Active Protocol: Document 12/14/22 12:00 DCW (Rec: 12/14/22 12:15 DCW [id number]) Special Tests Hip Special Tests Scour Test Test Results Rough joint surface R Dudley Test Results Negative Piriformis Test Results Negative FAUSTO Test Results R ipsilateral SI pain PT-OP-M Strength Start: 10/26/22 17:46 Freq: Status: Active Protocol: Document 12/14/22 12:00 DCW (Rec: 12/14/22 12:15 DCW [id number]) Hip Strength Hip Manual Muscle Testing Right Flexion (L2) 3+ Fair+ Abduction 4 Good Adduction 4+ Good+ External Rotation 4+ Good+ Internal Rotation 4 Good Left Flexion (L2) 5 Normal Abduction 4+ Good+ Adduction 4+ Good+ External Rotation 5 Normal Internal Rotation 5 Normal Knee Strength Knee Manual Muscle Testing Right Flexion (S2) 4+ Good+ Extension (L3) 4+ Good+ Left Flexion (S2) 5 Normal Extension (L3) 5 Normal Ankle/Foot Strength Ankle and Foot Manual Muscle Testing Right Dorsiflexion (L4) 5 Normal Left Dorsiflexion (L4) 5 Normal PT-OP-Q Treatments Start: 10/26/22 17:46 Freq: Status: Active Protocol: Document 12/17/22 12:00 DCW (Rec: 12/17/22 12:47 DCW [id number]) Gym Equipment Shuttle Recovery Unilateral Squats Resistance 37# L, 25# R Shuttle Recovery Platform Stable Bilateral Squats Resistance 62# Shuttle Recovery Platform Stable Therapeutic Exercises Standing Exercises Calf stretch Standing Exercise Name Calf stretch/Heel raises Equipment Used MISAEL Step-ups Standing Exercise Name Step-ups Side bilateral Equipment Used 6 step BOSU Lunge Standing Exercise Name BOSU Lunge Side bilateral Equipment Used Blue BOSU Manual Therapy Treatment Soft Tissue Mobilization ITB Body Location R ITB Mobilization Type Strumming,Sustained Pressure, Trigger Point Release Intensity/Depth Superficial Body Position Hooklying Piriformis Body Location R Piriformis Mobilization Type Strumming,Sustained Pressure Intensity/Depth Moderate Body Position Sidelying Hip Flexors Body Location R Hip Flexors Mobilization Type Strumming,Sustained Pressure Intensity/Depth Moderate Body Position Hooklying Manual Traction Lower Extremity Details Long-axis R LE traction PT-OP-T Assessment and Plan Start: 10/26/22 17:46 Freq: Status: Active Protocol: Document 12/17/22 12:00 DCW (Rec: 12/17/22 12:47 DCW [id number]) Physical Therapy Assessment Impairments Impairments Functional Activities, Functional Mobility,Pain,ROM, Soft Tissue Mobility,Strength, Tone Goals Three Impairment Significantly restricted R hip ROM, limited to 90? flexion and 0? horiz add Client Care Specialist Goal (LTG) Pt to demonstrate improved R hip PROM to 120? flexion in order to improve ability to perform piriformis stretching exercises LTG Duration 01/24/23 Two Impairment Pt exhibits right hip weakness , MMT for hip flexion tests as 3+/5 Client Care Specialist Goal (LTG) Pt to improve right hip flexion MMT to at worst 4/5 in order to improve ability to lift right leg into her vehicle without pain. LTG Duration 01/24/23 One Impairment Pt does not have an appropriate home exercise program Short Term Goal (STG) Pt to be independent and compliant with an appropriate HEP STG Duration 11/25/22 Assessment Summary Assessment Pt still having difficulty with some motions, particularly with hip flexion in standing. Is still doing better with difficult motions than she previously had, agrees that PT is on the right track. Physical Therapy Plan Frequency and Duration Frequency of Treatment 2x/Week Plan of Care Start Date 10/26/22 Plan of Care End Date 01/24/23 Therapeutic Interventions Therapeutic Interventions Home Exercise Program,Joint Mobilizations,Manual Therapy, Patient/Caregiver Education, Self-Care/Home Management,Soft Tissue Mobilization, Therapeutic Activities, Therapeutic Exercises Modalities Cold Pack/Ice Massage,Electric Stimulation,Hot Packs, Ultrasound Next Visit Focus/Plan Next Note Type Treatment Note Next Visit Plan Stretching/flexibility, LE strengthening, STM
--- NOTE | 2022-12-25 12:58 | PT.OTN ---
Current Diagnoses Unilateral primary osteoarthritis, right hip (12/25/22) Pain in right hip (12/25/22) Stiffness of right hip, not elsewhere classified (12/25/22) Physical Therapy Treatment Note PT-OP-A Visit Information Start: 10/26/22 17:46 Freq: Status: Active Protocol: Document 12/25/22 12:18 DCW (Rec: 12/25/22 12:58 DCW [id number]) Out-Patient Physical Therapy Visit Information Visit Information Visit Type Treatment Note Visit Start Time 12:18 Visit Stop Time 13:00 Total Visit Minutes 42 Visit Number 13 Number of LAND LEVELER Visits 0 Evaluation Information Evaluation Date 10/26/22 PT-OP-B Current Condition Start: 10/26/22 17:46 Freq: Status: Active Protocol: Document 10/26/22 12:50 DCW (Rec: 10/27/22 09:55 DCW [id number]) Current Condition History of Current Condition Onset Date 2020 Current Complaints R hip pain, stiffness History of Current Condition Pt is an 87 year old female presenting with a complicated history of life-long arthritis . Pt reports she was originally diagnosed with arthritis at the age of 19, was able to get treatment with various lotions and salves, which helped her life her life until she moved to [place], which with the rain and cold she worsened again. Was able to somewhat limit it's effects with Yoga and naturopathic interventions until she moved to [place] in 1995, and with the change in climate her symptoms almost completely disappeared until 2020, when she began to experience increased pain and stiffness. Has been diagnosed with spinal stenosis and severe right hip osteoarthritis. Notes she has fairly constant pain, but does not allow it to stop her from doing anything. Still regularly does yoga and tries to do a lot of stretching. Feels the pain most when trying to stand up after an extended time sitting, or when trying to lift her right leg into her car. Prior Treatments and Tests Hip x-ray: IMPRESSION: Asymmetric moderate to severe right hip joint osteoarthritis . No hip fracture or dislocation. No evidence of avascular necrosis . Alfred Patel M.D. on 09/03/2022 Lumbar MRI: IMPRESSION: Multilevel listhesis as described above. Discogenic marrow edema at T11-T12, a potential source of nonradicular axial back pain. [id number] multilevel multifactorial degenerative changes with areas of potential focal nerve root impingement as discussed above . Correlate for any corresponding radicular symptoms. Don Colon M.D. on 11/14/2021 PT-OP-C Subjective Start: 10/26/22 17:46 Freq: Status: Active Protocol: Document 12/25/22 12:18 DCW (Rec: 12/25/22 12:58 DCW [id number]) OP-PT Subjective Patient Comments Patient Comments Pt notes she was very sick over the weekend, called her doctor on Wednesday, and found out it was allergies. After getting antihistimines, nasal spray, and eye drops, she is feeling much better. PT-OP-F Manual Assessment Start: 10/26/22 17:46 Freq: Status: Active Protocol: Document 12/14/22 12:00 DCW (Rec: 12/14/22 12:15 DCW [id number]) Manual Assessments Soft Tissue Assessment Soft Tissue Mobility Assessment Moderate tone with tenderness to palpation 05/20: Complaint of pain along R TFL/ITB, Piriformis, Hip flexors PT-OP-K Range of Motion Start: 10/26/22 17:46 Freq: Status: Active Protocol: Document 12/14/22 12:00 DCW (Rec: 12/14/22 12:15 DCW [id number]) Hip Goniometric Range of Motion Hip Right Passive Hip ROM WFL No Testing Position Supine Flexion w/Knee Flexed 126 Comments Horizontal adduction: 14? PT-OP-L Special Tests Start: 10/26/22 17:46 Freq: Status: Active Protocol: Document 12/14/22 12:00 DCW (Rec: 12/14/22 12:15 DCW [id number]) Special Tests Hip Special Tests Scour Test Test Results Rough joint surface R Dudley Test Results Negative Piriformis Test Results Negative FAUSTO Test Results R ipsilateral SI pain PT-OP-M Strength Start: 10/26/22 17:46 Freq: Status: Active Protocol: Document 12/14/22 12:00 DCW (Rec: 12/14/22 12:15 DCW [id number]) Hip Strength Hip Manual Muscle Testing Right Flexion (L2) 3+ Fair+ Abduction 4 Good Adduction 4+ Good+ External Rotation 4+ Good+ Internal Rotation 4 Good Left Flexion (L2) 5 Normal Abduction 4+ Good+ Adduction 4+ Good+ External Rotation 5 Normal Internal Rotation 5 Normal Knee Strength Knee Manual Muscle Testing Right Flexion (S2) 4+ Good+ Extension (L3) 4+ Good+ Left Flexion (S2) 5 Normal Extension (L3) 5 Normal Ankle/Foot Strength Ankle and Foot Manual Muscle Testing Right Dorsiflexion (L4) 5 Normal Left Dorsiflexion (L4) 5 Normal PT-OP-Q Treatments Start: 10/26/22 17:46 Freq: Status: Active Protocol: Document 12/25/22 12:18 DCW (Rec: 12/25/22 12:58 DCW [id number]) Gym Equipment Shuttle Recovery Unilateral Squats Resistance 37# L, 25# R Shuttle Recovery Platform Stable Bilateral Squats Resistance 62# Shuttle Recovery Platform Stable Therapeutic Exercises Supine Exercises LTR Supine Exercise Name LTR Side bilateral Hamstring stretch Supine Exercise Name Hamstring stretch Side right Manual Therapy Treatment Soft Tissue Mobilization ITB Body Location R ITB Mobilization Type Strumming,Sustained Pressure, Trigger Point Release Intensity/Depth Superficial Body Position Hooklying Piriformis Body Location R Piriformis Mobilization Type Strumming,Sustained Pressure Intensity/Depth Moderate Body Position Sidelying Hip Flexors Body Location R Hip Flexors Mobilization Type Strumming,Sustained Pressure Intensity/Depth Moderate Body Position Hooklying Manual Traction Lower Extremity Details Long-axis R LE traction PT-OP-T Assessment and Plan Start: 10/26/22 17:46 Freq: Status: Active Protocol: Document 12/25/22 12:18 DCW (Rec: 12/25/22 12:58 DCW [id number]) Physical Therapy Assessment Impairments Impairments Functional Activities, Functional Mobility,Pain,ROM, Soft Tissue Mobility,Strength, Tone Goals Three Impairment Significantly restricted R hip ROM, limited to 90? flexion and 0? horiz add Board Machine Set Up Operator Goal (LTG) Pt to demonstrate improved R hip PROM to 120? flexion in order to improve ability to perform piriformis stretching exercises LTG Duration 01/24/23 Two Impairment Pt exhibits right hip weakness , MMT for hip flexion tests as 3+/5 Snf Goal (LTG) Pt to improve right hip flexion MMT to at worst 4/5 in order to improve ability to lift right leg into her vehicle without pain. LTG Duration 01/24/23 One Impairment Pt does not have an appropriate home exercise program Short Term Goal (STG) Pt to be independent and compliant with an appropriate HEP STG Duration 11/25/22 Assessment Summary Assessment Pt showing some slight improvements overall today, hip flexion improving. Still increased pain with hip adduction. Physical Therapy Plan Frequency and Duration Frequency of Treatment 2x/Week Plan of Care Start Date 10/26/22 Plan of Care End Date 01/24/23 Therapeutic Interventions Therapeutic Interventions Home Exercise Program,Joint Mobilizations,Manual Therapy, Patient/Caregiver Education, Self-Care/Home Management,Soft Tissue Mobilization, Therapeutic Activities, Therapeutic Exercises Modalities Cold Pack/Ice Massage,Electric Stimulation,Hot Packs, Ultrasound Next Visit Focus/Plan Next Note Type Treatment Note Next Visit Plan Stretching/flexibility, LE strengthening, STM
--- NOTE | 2022-12-29 15:08 | PT.OTN ---
Current Diagnoses Unilateral primary osteoarthritis, right hip (12/29/22) Pain in right hip (12/29/22) Stiffness of right hip, not elsewhere classified (12/29/22) Physical Therapy Treatment Note PT-OP-A Visit Information Start: 10/26/22 17:46 Freq: Status: Active Protocol: Document 12/29/22 14:15 DCW (Rec: 12/29/22 15:07 DCW [id number]) Out-Patient Physical Therapy Visit Information Visit Information Visit Type Treatment Note Visit Start Time 14:15 Visit Stop Time 15:00 Total Visit Minutes 45 Visit Number [address] MAN Visits 0 Evaluation Information Evaluation Date 10/26/22 PT-OP-B Current Condition Start: 10/26/22 17:46 Freq: Status: Active Protocol: Document 10/26/22 12:50 DCW (Rec: 10/27/22 09:55 DCW [id number]) Current Condition History of Current Condition Onset Date 2020 Current Complaints R hip pain, stiffness History of Current Condition Pt is an 87 year old female presenting with a complicated history of life-long arthritis . Pt reports she was originally diagnosed with arthritis at the age of 19, was able to get treatment with various lotions and salves, which helped her life her life until she moved to [place], which with the rain and cold she worsened again. Was able to somewhat limit it's effects with Yoga and naturopathic interventions until she moved to [place] in 1995, and with the change in climate her symptoms almost completely disappeared until 2020, when she began to experience increased pain and stiffness. Has been diagnosed with spinal stenosis and severe right hip osteoarthritis. Notes she has fairly constant pain, but does not allow it to stop her from doing anything. Still regularly does yoga and tries to do a lot of stretching. Feels the pain most when trying to stand up after an extended time sitting, or when trying to lift her right leg into her car. Prior Treatments and Tests Hip x-ray: IMPRESSION: Asymmetric moderate to severe right hip joint osteoarthritis . No hip fracture or dislocation. No evidence of avascular necrosis . Alfred Patel M.D. on 09/03/2022 Lumbar MRI: IMPRESSION: Multilevel listhesis as described above. Discogenic marrow edema at T11-T12, a potential source of nonradicular axial back pain. Afip-mg-[id number] multilevel multifactorial degenerative changes with areas of potential focal nerve root impingement as discussed above . Correlate for any corresponding radicular symptoms. Don Colon M.D. on 11/14/2021 PT-OP-C Subjective Start: 10/26/22 17:46 Freq: Status: Active Protocol: Document 12/29/22 14:15 DCW (Rec: 12/29/22 15:07 DCW [id number]) OP-PT Subjective Patient Comments Patient Comments I was doing okay until this morning, but I'm sore right now. IT's the arthritis, my hip and my knee are really sore. It helps if I keep moving. PT-OP-F Manual Assessment Start: 10/26/22 17:46 Freq: Status: Active Protocol: Document 12/14/22 12:00 DCW (Rec: 12/14/22 12:15 DCW [id number]) Manual Assessments Soft Tissue Assessment Soft Tissue Mobility Assessment Moderate tone with tenderness to palpation 05/20: Complaint of pain along R TFL/ITB, Piriformis, Hip flexors PT-OP-K Range of Motion Start: 10/26/22 17:46 Freq: Status: Active Protocol: Document 12/14/22 12:00 DCW (Rec: 12/14/22 12:15 DCW [id number]) Hip Goniometric Range of Motion Hip Right Passive Hip ROM WFL No Testing Position Supine Flexion w/Knee Flexed 126 Comments Horizontal adduction: 14? PT-OP-L Special Tests Start: 10/26/22 17:46 Freq: Status: Active Protocol: Document 12/14/22 12:00 DCW (Rec: 12/14/22 12:15 DCW [id number]) Special Tests Hip Special Tests Scour Test Test Results Rough joint surface R Dudley Test Results Negative Piriformis Test Results Negative FAUSTO Test Results R ipsilateral SI pain PT-OP-M Strength Start: 10/26/22 17:46 Freq: Status: Active Protocol: Document 12/14/22 12:00 DCW (Rec: 12/14/22 12:15 DCW [id number]) Hip Strength Hip Manual Muscle Testing Right Flexion (L2) 3+ Fair+ Abduction 4 Good Adduction 4+ Good+ External Rotation 4+ Good+ Internal Rotation 4 Good Left Flexion (L2) 5 Normal Abduction 4+ Good+ Adduction 4+ Good+ External Rotation 5 Normal Internal Rotation 5 Normal Knee Strength Knee Manual Muscle Testing Right Flexion (S2) 4+ Good+ Extension (L3) 4+ Good+ Left Flexion (S2) 5 Normal Extension (L3) 5 Normal Ankle/Foot Strength Ankle and Foot Manual Muscle Testing Right Dorsiflexion (L4) 5 Normal Left Dorsiflexion (L4) 5 Normal PT-OP-Q Treatments Start: 10/26/22 17:46 Freq: Status: Active Protocol: Document 12/29/22 14:15 DCW (Rec: 12/29/22 15:07 DCW [id number]) Gym Equipment Shuttle Recovery Unilateral Squats Resistance 37# L, 25# R Shuttle Recovery Platform Stable Bilateral Squats Resistance 62# Shuttle Recovery Platform Stable Shuttle Balance Red Details WBOS, Staggered Therapeutic Exercises Other Exercises Star Slide Other Exercise Name Star Slides Side bilateral Comments furniture Manual Therapy Treatment Soft Tissue Mobilization ITB Body Location R ITB Mobilization Type Strumming,Sustained Pressure, Trigger Point Release Intensity/Depth Superficial Body Position Hooklying Piriformis Body Location R Piriformis Mobilization Type Strumming,Sustained Pressure Intensity/Depth Moderate Body Position Sidelying Hip Flexors Body Location R Hip Flexors Mobilization Type Strumming,Sustained Pressure Intensity/Depth Moderate Body Position Hooklying Manual Traction Lower Extremity Details Long-axis R LE traction PT-OP-T Assessment and Plan Start: 10/26/22 17:46 Freq: Status: Active Protocol: Document 12/29/22 14:15 DCW (Rec: 12/29/22 15:07 DCW [id number]) Physical Therapy Assessment Impairments Impairments Functional Activities, Functional Mobility,Pain,ROM, Soft Tissue Mobility,Strength, Tone Goals Three Impairment Significantly restricted R hip ROM, limited to 90? flexion and 0? horiz add Missile Pad Mechanic Goal (LTG) Pt to demonstrate improved R hip PROM to 120? flexion in order to improve ability to perform piriformis stretching exercises LTG Duration 01/24/23 Two Impairment Pt exhibits right hip weakness , MMT for hip flexion tests as 3+/5 Missile Pad Mechanic Goal (LTG) Pt to improve right hip flexion MMT to at worst 4/5 in order to improve ability to lift right leg into her vehicle without pain. LTG Duration 01/24/23 One Impairment Pt does not have an appropriate home exercise program Short Term Goal (STG) Pt to be independent and compliant with an appropriate HEP STG Duration 11/25/22 Assessment Summary Assessment Pt demonstrated significant improvement over course of session today, increased antalgia upon entering today's appointment, vs ambulating WNL afterward. Discussed importance of continued stretching and strengthening for HEP. Physical Therapy Plan Frequency and Duration Frequency of Treatment 2x/Week Plan of Care Start Date 10/26/22 Plan of Care End Date 01/24/23 Therapeutic Interventions Therapeutic Interventions Home Exercise Program,Joint Mobilizations,Manual Therapy, Patient/Caregiver Education, Self-Care/Home Management,Soft Tissue Mobilization, Therapeutic Activities, Therapeutic Exercises Modalities Cold Pack/Ice Massage,Electric Stimulation,Hot Packs, Ultrasound Next Visit Focus/Plan Next Note Type Treatment Note Next Visit Plan Stretching/flexibility, LE strengthening, STM
--- NOTE | 2023-01-01 15:00 | PT.OTN ---
Current Diagnoses Unilateral primary osteoarthritis, right hip (01/01/23) Pain in right hip (01/01/23) Stiffness of right hip, not elsewhere classified (01/01/23) Physical Therapy Treatment Note PT-OP-A Visit Information Start: 10/26/22 17:46 Freq: Status: Active Protocol: Document 01/01/23 14:15 DCW (Rec: 01/01/23 15:00 DCW [id number]) Out-Patient Physical Therapy Visit Information Visit Information Visit Type Treatment Note Visit Start Time 14:15 Visit Stop Time 15:00 Total Visit Minutes 45 Visit Number 15 Number of WEB DEVELOPER PROGRAMMER Visits 0 Evaluation Information Evaluation Date 10/26/22 PT-OP-B Current Condition Start: 10/26/22 17:46 Freq: Status: Active Protocol: Document 10/26/22 12:50 DCW (Rec: 10/27/22 09:55 DCW [id number]) Current Condition History of Current Condition Onset Date 2020 Current Complaints R hip pain, stiffness History of Current Condition Pt is an 87 year old female presenting with a complicated history of life-long arthritis . Pt reports she was originally diagnosed with arthritis at the age of 19, was able to get treatment with various lotions and salves, which helped her life her life until she moved to [place], which with the rain and cold she worsened again. Was able to somewhat limit it's effects with Yoga and naturopathic interventions until she moved to [place] in 1995, and with the change in climate her symptoms almost completely disappeared until 2020, when she began to experience increased pain and stiffness. Has been diagnosed with spinal stenosis and severe right hip osteoarthritis. Notes she has fairly constant pain, but does not allow it to stop her from doing anything. Still regularly does yoga and tries to do a lot of stretching. Feels the pain most when trying to stand up after an extended time sitting, or when trying to lift her right leg into her car. Prior Treatments and Tests Hip x-ray: IMPRESSION: Asymmetric moderate to severe right hip joint osteoarthritis . No hip fracture or dislocation. No evidence of avascular necrosis . Alfred Patel M.D. on 09/03/2022 Lumbar MRI: IMPRESSION: Multilevel listhesis as described above. Discogenic marrow edema at T11-T12, a potential source of nonradicular axial back pain. Pxxe-ma-gafcuaal multilevel multifactorial degenerative changes with areas of potential focal nerve root impingement as discussed above . Correlate for any corresponding radicular symptoms. Don Colon M.D. on 11/14/2021 PT-OP-C Subjective Start: 10/26/22 17:46 Freq: Status: Active Protocol: Document 01/01/23 14:15 DCW (Rec: 01/01/23 15:00 DCW [id number]) OP-PT Subjective Patient Comments Patient Comments I'm doing really great the last two days. PT-OP-F Manual Assessment Start: 10/26/22 17:46 Freq: Status: Active Protocol: Document 12/14/22 12:00 DCW (Rec: 12/14/22 12:15 DCW [id number]) Manual Assessments Soft Tissue Assessment Soft Tissue Mobility Assessment Moderate tone with tenderness to palpation 4: Complaint of pain along R TFL/ITB, Piriformis, Hip flexors PT-OP-K Range of Motion Start: 10/26/22 17:46 Freq: Status: Active Protocol: Document 12/14/22 12:00 DCW (Rec: 12/14/22 12:15 DCW [id number]) Hip Goniometric Range of Motion Hip Right Passive Hip ROM WFL No Testing Position Supine Flexion w/Knee Flexed 126 Comments Horizontal adduction: 14? PT-OP-L Special Tests Start: 10/26/22 17:46 Freq: Status: Active Protocol: Document 12/14/22 12:00 DCW (Rec: 12/14/22 12:15 DCW [id number]) Special Tests Hip Special Tests Scour Test Test Results Rough joint surface R Dudley Test Results Negative Piriformis Test Results Negative FAUSTO Test Results R ipsilateral SI pain PT-OP-M Strength Start: 10/26/22 17:46 Freq: Status: Active Protocol: Document 12/14/22 12:00 DCW (Rec: 12/14/22 12:15 DCW [id number]) Hip Strength Hip Manual Muscle Testing Right Flexion (L2) 3+ Fair+ Abduction 4 Good Adduction 4+ Good+ External Rotation 4+ Good+ Internal Rotation 4 Good Left Flexion (L2) 5 Normal Abduction 4+ Good+ Adduction 4+ Good+ External Rotation 5 Normal Internal Rotation 5 Normal Knee Strength Knee Manual Muscle Testing Right Flexion (S2) 4+ Good+ Extension (L3) 4+ Good+ Left Flexion (S2) 5 Normal Extension (L3) 5 Normal Ankle/Foot Strength Ankle and Foot Manual Muscle Testing Right Dorsiflexion (L4) 5 Normal Left Dorsiflexion (L4) 5 Normal PT-OP-Q Treatments Start: 10/26/22 17:46 Freq: Status: Active Protocol: Document 01/01/23 14:15 DCW (Rec: 01/01/23 15:00 DCW [id number]) Gym Equipment Shuttle Recovery Unilateral Squats Resistance 37# L, 25# R Shuttle Recovery Platform Stable Bilateral Squats Resistance 75# Shuttle Recovery Platform Stable Shuttle Balance Red Details WBOS, Staggered Therapeutic Exercises Other Exercises Resisted Ambulation Other Exercise Name Resisted side-stepping Side bilateral Resistance Green Manual Therapy Treatment Soft Tissue Mobilization ITB Body Location R ITB Mobilization Type Strumming,Sustained Pressure, Trigger Point Release Intensity/Depth Superficial Body Position Hooklying Piriformis Body Location R Piriformis Mobilization Type Strumming,Sustained Pressure Intensity/Depth Moderate Body Position Sidelying Hip Flexors Body Location R Hip Flexors Mobilization Type Strumming,Sustained Pressure Intensity/Depth Moderate Body Position Hooklying Manual Traction Lower Extremity Details Long-axis R LE traction PT-OP-T Assessment and Plan Start: 10/26/22 17:46 Freq: Status: Active Protocol: Document 01/01/23 14:15 DCW (Rec: 01/01/23 15:00 DCW [id number]) Physical Therapy Assessment Impairments Impairments Functional Activities, Functional Mobility,Pain,ROM, Soft Tissue Mobility,Strength, Tone Goals Three Impairment Significantly restricted R hip ROM, limited to 90? flexion and 0? horiz add Intermediate Goal (LTG) Pt to demonstrate improved R hip PROM to 120? flexion in order to improve ability to perform piriformis stretching exercises LTG Duration 01/24/23 Two Impairment Pt exhibits right hip weakness , MMT for hip flexion tests as 3+/5 Gem Setter Goal (LTG) Pt to improve right hip flexion MMT to at worst 4/5 in order to improve ability to lift right leg into her vehicle without pain. LTG Duration 01/24/23 One Impairment Pt does not have an appropriate home exercise program Short Term Goal (STG) Pt to be independent and compliant with an appropriate HEP STG Duration 11/25/22 Assessment Summary Assessment Pt tolerating very well, has not been demonstrating any antalgia during gait. Continue to focus on hip strengthening , joint mobilization, and STM. Physical Therapy Plan Frequency and Duration Frequency of Treatment 2x/Week Plan of Care Start Date 10/26/22 Plan of Care End Date 01/24/23 Therapeutic Interventions Therapeutic Interventions Home Exercise Program,Joint Mobilizations,Manual Therapy, Patient/Caregiver Education, Self-Care/Home Management,Soft Tissue Mobilization, Therapeutic Activities, Therapeutic Exercises Modalities Cold Pack/Ice Massage,Electric Stimulation,Hot Packs, Ultrasound Next Visit Focus/Plan Next Note Type Treatment Note Next Visit Plan Stretching/flexibility, LE strengthening, STM
--- NOTE | 2023-01-07 12:49 | PT.OTN ---
Current Diagnoses Unilateral primary osteoarthritis, right hip (01/07/23) Pain in right hip (01/07/23) Stiffness of right hip, not elsewhere classified (01/07/23) Physical Therapy Treatment Note PT-OP-A Visit Information Start: 10/26/22 17:46 Freq: Status: Active Protocol: Document 01/07/23 11:46 SW (Rec: 01/07/23 12:49 SW [id number]) Out-Patient Physical Therapy Visit Information Visit Information Visit Type Treatment Note Visit Start Time 11:47 Visit Stop Time 12:30 Total Visit Minutes 43 Visit Number 16 Number of PROCESS DEVELOPMENT ASSOCIATE Visits 1 Evaluation Information Evaluation Date 10/26/22 PT-OP-B Current Condition Start: 10/26/22 17:46 Freq: Status: Active Protocol: Document 10/26/22 12:50 DCW (Rec: 10/27/22 09:55 DCW [id number]) Current Condition History of Current Condition Onset Date 2020 Current Complaints R hip pain, stiffness History of Current Condition Pt is an 87 year old female presenting with a complicated history of life-long arthritis . Pt reports she was originally diagnosed with arthritis at the age of 19, was able to get treatment with various lotions and salves, which helped her life her life until she moved to [place], which with the rain and cold she worsened again. Was able to somewhat limit it's effects with Yoga and naturopathic interventions until she moved to [place] in 1995, and with the change in climate her symptoms almost completely disappeared until 2020, when she began to experience increased pain and stiffness. Has been diagnosed with spinal stenosis and severe right hip osteoarthritis. Notes she has fairly constant pain, but does not allow it to stop her from doing anything. Still regularly does yoga and tries to do a lot of stretching. Feels the pain most when trying to stand up after an extended time sitting, or when trying to lift her right leg into her car. Prior Treatments and Tests Hip x-ray: IMPRESSION: Asymmetric moderate to severe right hip joint osteoarthritis . No hip fracture or dislocation. No evidence of avascular necrosis . Alfred Patel M.D. on 09/03/2022 Lumbar MRI: IMPRESSION: Multilevel listhesis as described above. Discogenic marrow edema at T11-T12, a potential source of nonradicular axial back pain. [id number]-[id number] multilevel multifactorial degenerative changes with areas of potential focal nerve root impingement as discussed above . Correlate for any corresponding radicular symptoms. Don Colon M.D. on 11/14/2021 PT-OP-C Subjective Start: 10/26/22 17:46 Freq: Status: Active Protocol: Document 01/07/23 11:46 SW (Rec: 01/07/23 12:49 SW [id number]) OP-PT Subjective Patient Comments Patient Comments Pt reports she is getting better, she notices improvement, less pain. PT-OP-F Manual Assessment Start: 10/26/22 17:46 Freq: Status: Active Protocol: Document 12/14/22 12:00 DCW (Rec: 12/14/22 12:15 DCW [id number]) Manual Assessments Soft Tissue Assessment Soft Tissue Mobility Assessment Moderate tone with tenderness to palpation 14: Complaint of pain along R TFL/ITB, Piriformis, Hip flexors PT-OP-K Range of Motion Start: 10/26/22 17:46 Freq: Status: Active Protocol: Document 12/14/22 12:00 DCW (Rec: 12/14/22 12:15 DCW [id number]) Hip Goniometric Range of Motion Hip Right Passive Hip ROM WFL No Testing Position Supine Flexion w/Knee Flexed 126 Comments Horizontal adduction: 14? PT-OP-L Special Tests Start: 10/26/22 17:46 Freq: Status: Active Protocol: Document 12/14/22 12:00 DCW (Rec: 12/14/22 12:15 DCW [id number]) Special Tests Hip Special Tests Scour Test Test Results Rough joint surface R Dudley Test Results Negative Piriformis Test Results Negative FAUSTO Test Results R ipsilateral SI pain PT-OP-M Strength Start: 10/26/22 17:46 Freq: Status: Active Protocol: Document 12/14/22 12:00 DCW (Rec: 12/14/22 12:15 DCW [id number]) Hip Strength Hip Manual Muscle Testing Right Flexion (L2) 3+ Fair+ Abduction 4 Good Adduction 4+ Good+ External Rotation 4+ Good+ Internal Rotation 4 Good Left Flexion (L2) 5 Normal Abduction 4+ Good+ Adduction 4+ Good+ External Rotation 5 Normal Internal Rotation 5 Normal Knee Strength Knee Manual Muscle Testing Right Flexion (S2) 4+ Good+ Extension (L3) 4+ Good+ Left Flexion (S2) 5 Normal Extension (L3) 5 Normal Ankle/Foot Strength Ankle and Foot Manual Muscle Testing Right Dorsiflexion (L4) 5 Normal Left Dorsiflexion (L4) 5 Normal PT-OP-Q Treatments Start: 10/26/22 17:46 Freq: Status: Active Protocol: Document 01/07/23 11:46 SW (Rec: 01/07/23 12:49 SW [id number]) Gym Equipment Shuttle Recovery Unilateral Squats Resistance 37# L, 25# R Shuttle Recovery Platform Stable Reps/Time tactile cues for R Knee alignmen Bilateral Squats Resistance 75# (2 new) Shuttle Recovery Platform Stable Sport Cord 4 way Exercise Details Fwd/back/bilateral Cord/Resistance blue Reps/Duration x 5 Manual Therapy Treatment Soft Tissue Mobilization Piriformis Body Location R Piriformis Mobilization Type Strumming,Sustained Pressure Intensity/Depth Moderate Body Position Sidelying Hip Flexors Body Location R Hip Flexors Mobilization Type Strumming,Sustained Pressure Intensity/Depth Moderate Body Position Hooklying Manual Traction Lower Extremity Details Long-axis R LE traction PT-OP-T Assessment and Plan Start: 10/26/22 17:46 Freq: Status: Active Protocol: Document 01/07/23 11:46 (Rec: 01/07/23 12:49 [id number]) Physical Therapy Assessment Impairments Impairments Functional Activities, Functional Mobility,Pain,ROM, Soft Tissue Mobility,Strength, Tone Goals Three Impairment Significantly restricted R hip ROM, limited to 90? flexion and 0? horiz add Drawing Checker Goal (LTG) Pt to demonstrate improved R hip PROM to 120? flexion in order to improve ability to perform piriformis stretching exercises LTG Duration 01/24/23 Two Impairment Pt exhibits right hip weakness , MMT for hip flexion tests as 3+/5 Snf Goal (LTG) Pt to improve right hip flexion MMT to at worst 4/5 in order to improve ability to lift right leg into her vehicle without pain. LTG Duration 01/24/23 One Impairment Pt does not have an appropriate home exercise program Short Term Goal (STG) Pt to be independent and compliant with an appropriate HEP STG Duration 11/25/22 Assessment Summary Assessment Continued STM for pain, trigger point release to piriformis/glute, good feedback with decreased pain post. Pt had R hip pain with strengthening exercise today, PROCESS DEVELOPMENT ASSOCIATE tactile cues for alignment , alleviated pain. Trialed sport cord today, challenged but tolerated well. Good patient adherance to HEP, pt still feels challenged with strengthening exercises at home. Physical Therapy Plan Frequency and Duration Frequency of Treatment 2x/Week Plan of Care Start Date 10/26/22 Plan of Care End Date 01/24/23 Therapeutic Interventions Therapeutic Interventions Home Exercise Program,Joint Mobilizations,Manual Therapy, Patient/Caregiver Education, Self-Care/Home Management,Soft Tissue Mobilization, Therapeutic Activities, Therapeutic Exercises Modalities Cold Pack/Ice Massage,Electric Stimulation,Hot Packs, Ultrasound Next Visit Focus/Plan Next Note Type Treatment Note Next Visit Plan Stretching/flexibility, LE strengthening, STM
--- NOTE | 2023-01-11 11:49 | PT.OTN ---
Current Diagnoses Unilateral primary osteoarthritis, right hip (01/11/23) Pain in right hip (01/11/23) Stiffness of right hip, not elsewhere classified (01/11/23) Physical Therapy Treatment Note PT-OP-A Visit Information Start: 10/26/22 17:46 Freq: Status: Active Protocol: Document 01/11/23 11:00 DCW (Rec: 01/11/23 11:45 DCW [id number]) Out-Patient Physical Therapy Visit Information Visit Information Visit Type Treatment Note Visit Start Time 11:00 Visit Stop Time 11:45 Total Visit Minutes 45 Visit Number 17 Number of FEDERAL JAVA DEVELOPER Visits 0 Evaluation Information Evaluation Date 10/26/22 PT-OP-B Current Condition Start: 10/26/22 17:46 Freq: Status: Active Protocol: Document 10/26/22 12:50 DCW (Rec: 10/27/22 09:55 DCW [id number]) Current Condition History of Current Condition Onset Date 2020 Current Complaints R hip pain, stiffness History of Current Condition Pt is an 87 year old female presenting with a complicated history of life-long arthritis . Pt reports she was originally diagnosed with arthritis at the age of 19, was able to get treatment with various lotions and salves, which helped her life her life until she moved to [place], which with the rain and cold she worsened again. Was able to somewhat limit it's effects with Yoga and naturopathic interventions until she moved to [place] in 1995, and with the change in climate her symptoms almost completely disappeared until 2020, when she began to experience increased pain and stiffness. Has been diagnosed with spinal stenosis and severe right hip osteoarthritis. Notes she has fairly constant pain, but does not allow it to stop her from doing anything. Still regularly does yoga and tries to do a lot of stretching. Feels the pain most when trying to stand up after an extended time sitting, or when trying to lift her right leg into her car. Prior Treatments and Tests Hip x-ray: IMPRESSION: Asymmetric moderate to severe right hip joint osteoarthritis . No hip fracture or dislocation. No evidence of avascular necrosis . Alfred Patel M.D. on 09/03/2022 Lumbar MRI: IMPRESSION: Multilevel listhesis as described above. Discogenic marrow edema at T11-T12, a potential source of nonradicular axial back pain. Iaty-uj-uhhoguet multilevel multifactorial degenerative changes with areas of potential focal nerve root impingement as discussed above . Correlate for any corresponding radicular symptoms. Don Colon M.D. on 11/14/2021 PT-OP-C Subjective Start: 10/26/22 17:46 Freq: Status: Active Protocol: Document 01/11/23 11:00 DCW (Rec: 01/11/23 11:49 DCW [id number]) OP-PT Subjective Patient Comments Patient Comments Pt reports some improvements, feels like she is continuing to benefit. PT-OP-F Manual Assessment Start: 10/26/22 17:46 Freq: Status: Active Protocol: Document 12/14/22 12:00 DCW (Rec: 12/14/22 12:15 DCW [id number]) Manual Assessments Soft Tissue Assessment Soft Tissue Mobility Assessment Moderate tone with tenderness to palpation 05/20: Complaint of pain along R TFL/ITB, Piriformis, Hip flexors PT-OP-K Range of Motion Start: 10/26/22 17:46 Freq: Status: Active Protocol: Document 12/14/22 12:00 DCW (Rec: 12/14/22 12:15 DCW [id number]) Hip Goniometric Range of Motion Hip Right Passive Hip ROM WFL No Testing Position Supine Flexion w/Knee Flexed 126 Comments Horizontal adduction: 14? PT-OP-L Special Tests Start: 10/26/22 17:46 Freq: Status: Active Protocol: Document 12/14/22 12:00 DCW (Rec: 12/14/22 12:15 DCW [id number]) Special Tests Hip Special Tests Scour Test Test Results Rough joint surface R Dudley Test Results Negative Piriformis Test Results Negative FAUSTO Test Results R ipsilateral SI pain PT-OP-M Strength Start: 10/26/22 17:46 Freq: Status: Active Protocol: Document 12/14/22 12:00 DCW (Rec: 12/14/22 12:15 DCW [id number]) Hip Strength Hip Manual Muscle Testing Right Flexion (L2) 3+ Fair+ Abduction 4 Good Adduction 4+ Good+ External Rotation 4+ Good+ Internal Rotation 4 Good Left Flexion (L2) 5 Normal Abduction 4+ Good+ Adduction 4+ Good+ External Rotation 5 Normal Internal Rotation 5 Normal Knee Strength Knee Manual Muscle Testing Right Flexion (S2) 4+ Good+ Extension (L3) 4+ Good+ Left Flexion (S2) 5 Normal Extension (L3) 5 Normal Ankle/Foot Strength Ankle and Foot Manual Muscle Testing Right Dorsiflexion (L4) 5 Normal Left Dorsiflexion (L4) 5 Normal PT-OP-Q Treatments Start: 10/26/22 17:46 Freq: Status: Active Protocol: Document 01/11/23 11:00 DCW (Rec: 01/11/23 11:45 DCW [id number]) Gym Equipment Shuttle Balance Red Details WBOS (EO/EC), Staggered Therapeutic Exercises Supine Exercises Hamstring stretch Supine Exercise Name Hamstring stretch Side right Standing Exercises BOSU Lunge Standing Exercise Name BOSU Lunge Side bilateral Equipment Used Blue BOSU Hip flexor Standing Exercise Name Half-kneel hip flexor stretch Side right Other Exercises Resisted Ambulation Other Exercise Name Resisted side-stepping Side bilateral Resistance Green Manual Therapy Treatment Soft Tissue Mobilization ITB Body Location R ITB Mobilization Type Strumming,Sustained Pressure, Trigger Point Release Intensity/Depth Superficial Body Position Hooklying Piriformis Body Location R Piriformis Mobilization Type Strumming,Sustained Pressure Intensity/Depth Moderate Body Position Sidelying Hip Flexors Body Location R Hip Flexors Mobilization Type Strumming,Sustained Pressure Intensity/Depth Moderate Body Position Hooklying Manual Traction Lower Extremity Details Long-axis R LE traction PT-OP-T Assessment and Plan Start: 10/26/22 17:46 Freq: Status: Active Protocol: Document 01/11/23 11:00 DCW (Rec: 01/11/23 11:45 DCW [id number]) Physical Therapy Assessment Impairments Impairments Functional Activities, Functional Mobility,Pain,ROM, Soft Tissue Mobility,Strength, Tone Goals Three Impairment Significantly restricted R hip ROM, limited to 90? flexion and 0? horiz add Diesel Engine Tester Goal (LTG) Pt to demonstrate improved R hip PROM to 120? flexion in order to improve ability to perform piriformis stretching exercises LTG Duration 01/24/23 Two Impairment Pt exhibits right hip weakness , MMT for hip flexion tests as 3+/5 Penitentiary Goal (LTG) Pt to improve right hip flexion MMT to at worst 4/5 in order to improve ability to lift right leg into her vehicle without pain. LTG Duration 01/24/23 One Impairment Pt does not have an appropriate home exercise program Short Term Goal (STG) Pt to be independent and compliant with an appropriate HEP STG Duration 11/25/22 Assessment Summary Assessment Pt continues to demonstrate good feedback with STM/manual, improved quality of stabilization on Shuttle balance today, good LE control . Increased complaints of HS soreness today, responded well to stretch. Physical Therapy Plan Frequency and Duration Frequency of Treatment 2x/Week Plan of Care Start Date 10/26/22 Plan of Care End Date 01/24/23 Therapeutic Interventions Therapeutic Interventions Home Exercise Program,Joint Mobilizations,Manual Therapy, Patient/Caregiver Education, Self-Care/Home Management,Soft Tissue Mobilization, Therapeutic Activities, Therapeutic Exercises Modalities Cold Pack/Ice Massage,Electric Stimulation,Hot Packs, Ultrasound Next Visit Focus/Plan Next Note Type Treatment Note Next Visit Plan Stretching/flexibility, LE strengthening, STM
--- NOTE | 2023-01-14 12:52 | PT.OTN ---
Current Diagnoses Unilateral primary osteoarthritis, right hip (01/14/23) Pain in right hip (01/14/23) Stiffness of right hip, not elsewhere classified (01/14/23) Physical Therapy Treatment Note PT-OP-A Visit Information Start: 10/26/22 17:46 Freq: Status: Active Protocol: Document 01/14/23 11:47 SW (Rec: 01/14/23 12:52 SW [id number]) Out-Patient Physical Therapy Visit Information Visit Information Visit Type Treatment Note Visit Start Time 11:47 Visit Stop Time 12:30 Total Visit Minutes 43 Visit Number 18 Number of NURSING PROGRAM COORDINATOR Visits 1 PT-OP-B Current Condition Start: 10/26/22 17:46 Freq: Status: Active Protocol: Document 10/26/22 12:50 DCW (Rec: 10/27/22 09:55 DCW [id number]) Current Condition History of Current Condition Onset Date 2020 Current Complaints R hip pain, stiffness History of Current Condition Pt is an 87 year old female presenting with a complicated history of life-long arthritis . Pt reports she was originally diagnosed with arthritis at the age of 19, was able to get treatment with various lotions and salves, which helped her life her life until she moved to [place], which with the rain and cold she worsened again. Was able to somewhat limit it's effects with Yoga and naturopathic interventions until she moved to [place] in 1995, and with the change in climate her symptoms almost completely disappeared until 2020, when she began to experience increased pain and stiffness. Has been diagnosed with spinal stenosis and severe right hip osteoarthritis. Notes she has fairly constant pain, but does not allow it to stop her from doing anything. Still regularly does yoga and tries to do a lot of stretching. Feels the pain most when trying to stand up after an extended time sitting, or when trying to lift her right leg into her car. Prior Treatments and Tests Hip x-ray: IMPRESSION: Asymmetric moderate to severe right hip joint osteoarthritis . No hip fracture or dislocation. No evidence of avascular necrosis . Alfred Patel M.D. on 09/03/2022 Lumbar MRI: IMPRESSION: Multilevel listhesis as described above. Discogenic marrow edema at T11-T12, a potential source of nonradicular axial back pain. [id number] multilevel multifactorial degenerative changes with areas of potential focal nerve root impingement as discussed above . Correlate for any corresponding radicular symptoms. Don Colon M.D. on 11/14/2021 PT-OP-C Subjective Start: 10/26/22 17:46 Freq: Status: Active Protocol: Document 01/14/23 11:47 SW (Rec: 01/14/23 12:52 SW [id number]) OP-PT Subjective Patient Comments Patient Comments Pt really enjoys therapy. She feels like she can lift her leg so much higher compared to when she started. PT-OP-F Manual Assessment Start: 10/26/22 17:46 Freq: Status: Active Protocol: Document 12/14/22 12:00 DCW (Rec: 12/14/22 12:15 DCW [id number]) Manual Assessments Soft Tissue Assessment Soft Tissue Mobility Assessment Moderate tone with tenderness to palpation 05/20: Complaint of pain along R TFL/ITB, Piriformis, Hip flexors PT-OP-K Range of Motion Start: 10/26/22 17:46 Freq: Status: Active Protocol: Document 12/14/22 12:00 DCW (Rec: 12/14/22 12:15 DCW [id number]) Hip Goniometric Range of Motion Hip Right Passive Hip ROM WFL No Testing Position Supine Flexion w/Knee Flexed 126 Comments Horizontal adduction: 14? PT-OP-L Special Tests Start: 10/26/22 17:46 Freq: Status: Active Protocol: Document 12/14/22 12:00 DCW (Rec: 12/14/22 12:15 DCW [id number]) Special Tests Hip Special Tests Scour Test Test Results Rough joint surface R Dudley Test Results Negative Piriformis Test Results Negative FAUSTO Test Results R ipsilateral SI pain PT-OP-M Strength Start: 10/26/22 17:46 Freq: Status: Active Protocol: Document 12/14/22 12:00 DCW (Rec: 12/14/22 12:15 DCW [id number]) Hip Strength Hip Manual Muscle Testing Right Flexion (L2) 3+ Fair+ Abduction 4 Good Adduction 4+ Good+ External Rotation 4+ Good+ Internal Rotation 4 Good Left Flexion (L2) 5 Normal Abduction 4+ Good+ Adduction 4+ Good+ External Rotation 5 Normal Internal Rotation 5 Normal Knee Strength Knee Manual Muscle Testing Right Flexion (S2) 4+ Good+ Extension (L3) 4+ Good+ Left Flexion (S2) 5 Normal Extension (L3) 5 Normal Ankle/Foot Strength Ankle and Foot Manual Muscle Testing Right Dorsiflexion (L4) 5 Normal Left Dorsiflexion (L4) 5 Normal PT-OP-Q Treatments Start: 10/26/22 17:46 Freq: Status: Active Protocol: Document 01/14/23 11:47 SW (Rec: 01/14/23 12:52 [id number]) Gym Equipment Shuttle Balance Red Details WBOS (EO/EC), Staggered (A/P), side to side Therapeutic Exercises Standing Exercises Resisted March Side bilateral Resistance Green TB around shoes Equipment Used @ rail Comments verbal and tactile cues for hip stabilization HS Stretch Side bilateral Equipment Used @counter BOSU Lunge Standing Exercise Name BOSU Lunge Side bilateral Equipment Used Blue BOSU Hip flexor Standing Exercise Name Half-kneel hip flexor stretch Side right Other Exercises Resisted Ambulation Other Exercise Name Resisted side-stepping Side bilateral Resistance Green Manual Therapy Treatment Soft Tissue Mobilization ITB Body Location R ITB Mobilization Type Strumming,Sustained Pressure, Trigger Point Release Intensity/Depth Superficial Body Position Hooklying Piriformis Body Location R Piriformis Mobilization Type Strumming,Sustained Pressure Intensity/Depth Moderate Body Position Sidelying Hip Flexors Body Location R Hip Flexors Mobilization Type Strumming,Sustained Pressure Intensity/Depth Moderate Body Position Hooklying Manual Traction Lower Extremity Details Long-axis R LE traction PT-OP-T Assessment and Plan Start: 10/26/22 17:46 Freq: Status: Active Protocol: Document 01/14/23 11:47 (Rec: 01/14/23 12:52 [id number]) Physical Therapy Assessment Goals Three Impairment Significantly restricted R hip ROM, limited to 90? flexion and 0? horiz add Retirement Goal (LTG) Pt to demonstrate improved R hip PROM to 120? flexion in order to improve ability to perform piriformis stretching exercises LTG Duration 01/24/23 Two Impairment Pt exhibits right hip weakness , MMT for hip flexion tests as 3+/5 Retirement Goal (LTG) Pt to improve right hip flexion MMT to at worst 4/5 in order to improve ability to lift right leg into her vehicle without pain. LTG Duration 01/24/23 One Impairment Pt does not have an appropriate home exercise program Short Term Goal (STG) Pt to be independent and compliant with an appropriate HEP STG Duration 11/25/22 Assessment Summary Assessment Pt challenged with side to side balance on shuttle balance today. Resisted marches, pt required verbal and tactile cues to keep hip stabilization without hip drop when standing on RLE, improved with repetition, lower march, and pt education. Physical Therapy Plan Frequency and Duration Frequency of Treatment 2x/Week Plan of Care Start Date 10/26/22 Plan of Care End Date 01/24/23 Therapeutic Interventions Therapeutic Interventions Home Exercise Program,Joint Mobilizations,Manual Therapy, Patient/Caregiver Education, Self-Care/Home Management,Soft Tissue Mobilization, Therapeutic Activities, Therapeutic Exercises Modalities Cold Pack/Ice Massage,Electric Stimulation,Hot Packs, Ultrasound Next Visit Focus/Plan Next Note Type Treatment Note Next Visit Plan Stretching/flexibility, LE strengthening, STM
--- NOTE | 2023-01-21 12:45 | PT.OPPOC ---
Physical, Occupational & Speech Therapy At [facility] Current Diagnoses Unilateral primary osteoarthritis, right hip (02/04/23) Pain in right hip (02/04/23) Stiffness of right hip, not elsewhere classified (02/04/23) Visit Care Team Role Provider Type Blanco Lane MD Attending Provider Physician Family Provider Primary Care Provider Referring Provider Specialty: Family Practice Address: [address] [place] [address], [facility] Email: [email or web address] Plan Of Care PT-OP-T Assessment and Plan Start: 10/26/22 17:46 Freq: Status: Active Protocol: Document 02/04/23 12:47 DCW (Rec: 01/21/23 12:45 DCW [id number]) Physical Therapy Assessment Impairments Impairments Functional Activities, Functional Mobility,Pain,ROM, Soft Tissue Mobility,Strength, Tone Goals Three Impairment Mildly restricted R hip ROM, limited to 121? active flexion Short Term Goal (STG) Pt to demonstrate improved R hip PROM to 120? flexion in order to improve ability to perform piriformis stretching exercises STG Duration Met Wool Buyer Goal (LTG) Pt to demonstrate improved R hip AROM to 130? flexion in order to improve ability to perform piriformis stretching exercises LTG Duration 02/26/23 Two Impairment Pt exhibits right hip weakness , MMT for hip flexion tests as 3+/5 Wool Buyer Goal (LTG) Pt to improve right hip flexion MMT to at worst 4/5 in order to improve ability to lift right leg into her vehicle without pain. LTG Duration Met One Impairment Pt does not have an appropriate home exercise program Short Term Goal (STG) Pt to be independent and compliant with an appropriate HEP STG Duration Met Assessment Summary Assessment Pt doing well, met all original goals, still slight limitations in right hip active ROM. Decrease frequency to 1x/week, pt will do well with 4-5 more visits to help with transition to independent HEP. Physical Therapy Plan Frequency and Duration Frequency of Treatment 1x/Week Plan of Care Start Date 01/21/23 Plan of Care End Date 02/26/23 Therapeutic Interventions Therapeutic Interventions Home Exercise Program,Joint Mobilizations,Manual Therapy, Patient/Caregiver Education, Self-Care/Home Management,Soft Tissue Mobilization, Therapeutic Activities, Therapeutic Exercises Modalities Cold Pack/Ice Massage,Electric Stimulation,Hot Packs, Ultrasound Next Visit Focus/Plan Next Note Type Treatment Note Next Visit Plan Stretching/flexibility, LE strengthening, STM Plan of Care Dates Plan of Care Start Date 01/21/23 Plan of Care End Date 02/26/23 Electronically Signed by: Renzo Obrien, PT 02/04/23 1853 If you are in agreement with this Plan of Care, please return a signed and dated copy. I have reviewed this Plan of Care and certify that the skilled therapy services above are required to meet the patient?s needs. Physician Signature Date Printed Name and Credentials Clinical Instructor Signature Printed Name and Credentials
--- NOTE | 2023-01-21 12:45 | PT.OTN ---
Current Diagnoses Unilateral primary osteoarthritis, right hip (01/21/23) Pain in right hip (01/21/23) Stiffness of right hip, not elsewhere classified (01/21/23) Physical Therapy Treatment Note PT-OP-A Visit Information Start: 10/26/22 17:46 Freq: Status: Active Protocol: Document 01/21/23 12:00 DCW (Rec: 01/21/23 12:45 DCW [id number]) Out-Patient Physical Therapy Visit Information Visit Information Visit Type Treatment Note Visit Start Time 12:00 Visit Stop Time 12:45 Total Visit Minutes 45 Visit Number 19 Number of ACCOUNT RECEIVABLE ASSOCIATE Visits 0 Evaluation Information Evaluation Date 10/26/22 PT-OP-B Current Condition Start: 10/26/22 17:46 Freq: Status: Active Protocol: Document 10/26/22 12:50 DCW (Rec: 10/27/22 09:55 DCW [id number]) Current Condition History of Current Condition Onset Date 2020 Current Complaints R hip pain, stiffness History of Current Condition Pt is an 87 year old female presenting with a complicated history of life-long arthritis . Pt reports she was originally diagnosed with arthritis at the age of 19, was able to get treatment with various lotions and salves, which helped her life her life until she moved to [place], which with the rain and cold she worsened again. Was able to somewhat limit it's effects with Yoga and naturopathic interventions until she moved to [place] in 1995, and with the change in climate her symptoms almost completely disappeared until 2020, when she began to experience increased pain and stiffness. Has been diagnosed with spinal stenosis and severe right hip osteoarthritis. Notes she has fairly constant pain, but does not allow it to stop her from doing anything. Still regularly does yoga and tries to do a lot of stretching. Feels the pain most when trying to stand up after an extended time sitting, or when trying to lift her right leg into her car. Prior Treatments and Tests Hip x-ray: IMPRESSION: Asymmetric moderate to severe right hip joint osteoarthritis . No hip fracture or dislocation. No evidence of avascular necrosis . Alfred Patel M.D. on 09/03/2022 Lumbar MRI: IMPRESSION: Multilevel listhesis as described above. Discogenic marrow edema at T11-T12, a potential source of nonradicular axial back pain. [id number] multilevel multifactorial degenerative changes with areas of potential focal nerve root impingement as discussed above . Correlate for any corresponding radicular symptoms. oDn Colon M.D. on 11/14/2021 PT-OP-C Subjective Start: 10/26/22 17:46 Freq: Status: Active Protocol: Document 01/21/23 12:00 DCW (Rec: 01/21/23 12:45 DCW [id number]) OP-PT Subjective Patient Comments Patient Comments I was feeling a lot better, basically up until this morning, but I think it has more to do with the weather. PT-OP-F Manual Assessment Start: 10/26/22 17:46 Freq: Status: Active Protocol: Document 01/21/23 12:00 DCW (Rec: 01/21/23 12:09 DCW [id number]) Manual Assessments Soft Tissue Assessment Soft Tissue Mobility Assessment Moderate tone with tenderness to palpation 1/4: Complaint of pain along R TFL/ITB, Piriformis, Hip flexors PT-OP-K Range of Motion Start: 10/26/22 17:46 Freq: Status: Active Protocol: Document 01/21/23 12:00 DCW (Rec: 01/21/23 12:09 DCW [id number]) Hip Goniometric Range of Motion Hip Right Passive Testing Position Supine Flexion w/Knee Flexed 132 Comments Horizontal adduction: 28? PT-OP-L Special Tests Start: 10/26/22 17:46 Freq: Status: Active Protocol: Document 01/21/23 12:00 DCW (Rec: 01/21/23 12:09 DCW [id number]) Special Tests Hip Special Tests Scour Test Test Results Rough joint surface R Dudley Test Results Negative Piriformis Test Results Negative FAUSTO Test Results R ipsilateral anterior hip pain PT-OP-M Strength Start: 10/26/22 17:46 Freq: Status: Active Protocol: Document 01/21/23 12:00 DCW (Rec: 01/21/23 12:09 DCW [id number]) Hip Strength Hip Manual Muscle Testing Right Flexion (L2) 4 Good Abduction 4+ Good+ Adduction 4+ Good+ External Rotation 4+ Good+ Internal Rotation 4+ Good+ Left Flexion (L2) 5 Normal Abduction 4+ Good+ Adduction 4+ Good+ External Rotation 5 Normal Internal Rotation 5 Normal Knee Strength Knee Manual Muscle Testing Right Flexion (S2) 4+ Good+ Extension (L3) 5 Normal Left Flexion (S2) 5 Normal Extension (L3) 5 Normal Ankle/Foot Strength Ankle and Foot Manual Muscle Testing Right Dorsiflexion (L4) 5 Normal Left Dorsiflexion (L4) 5 Normal PT-OP-Q Treatments Start: 10/26/22 17:46 Freq: Status: Active Protocol: Document 01/21/23 12:00 DCW (Rec: 01/21/23 12:45 DCW [id number]) Gym Equipment Shuttle Balance Red Details WBOS (EO/EC), Staggered Manual Therapy Treatment Soft Tissue Mobilization ITB Body Location R ITB Mobilization Type Strumming,Sustained Pressure, Trigger Point Release Intensity/Depth Superficial Body Position Hooklying Piriformis Body Location R Piriformis Mobilization Type Strumming,Sustained Pressure Intensity/Depth Moderate Body Position Sidelying Hip Flexors Body Location R Hip Flexors Mobilization Type Strumming,Sustained Pressure Intensity/Depth Moderate Body Position Hooklying Manual Traction Lower Extremity Details Long-axis R LE traction PT-OP-T Assessment and Plan Start: 10/26/22 17:46 Freq: Status: Active Protocol: Document 01/21/23 12:00 DCW (Rec: 01/21/23 12:45 DCW [id number]) Physical Therapy Assessment Impairments Impairments Functional Activities, Functional Mobility,Pain,ROM, Soft Tissue Mobility,Strength, Tone Goals Three Impairment Mildly restricted R hip ROM, limited to 121? active flexion Short Term Goal (STG) Pt to demonstrate improved R hip PROM to 120? flexion in order to improve ability to perform piriformis stretching exercises STG Duration Met Home Insurance Agent Goal (LTG) Pt to demonstrate improved R hip AROM to 130? flexion in order to improve ability to perform piriformis stretching exercises LTG Duration 02/26/23 Two Impairment Pt exhibits right hip weakness , MMT for hip flexion tests as 3+/5 Home Insurance Agent Goal (LTG) Pt to improve right hip flexion MMT to at worst 4/5 in order to improve ability to lift right leg into her vehicle without pain. LTG Duration Met One Impairment Pt does not have an appropriate home exercise program Short Term Goal (STG) Pt to be independent and compliant with an appropriate HEP STG Duration Met Assessment Summary Assessment Pt doing well, met all original goals, still slight limitations in right hip active ROM. Decrease frequency to 1x/week, pt will do well with 4-5 more visits to help with transition to independent HEP. Physical Therapy Plan Frequency and Duration Frequency of Treatment 1x/Week Plan of Care Start Date 01/21/23 Plan of Care End Date 02/26/23 Therapeutic Interventions Therapeutic Interventions Home Exercise Program,Joint Mobilizations,Manual Therapy, Patient/Caregiver Education, Self-Care/Home Management,Soft Tissue Mobilization, Therapeutic Activities, Therapeutic Exercises Modalities Cold Pack/Ice Massage,Electric Stimulation,Hot Packs, Ultrasound Next Visit Focus/Plan Next Note Type Treatment Note Next Visit Plan Stretching/flexibility, LE strengthening, STM
--- NOTE | 2023-02-04 12:46 | PT.OTN ---
Current Diagnoses Unilateral primary osteoarthritis, right hip (02/04/23) Pain in right hip (02/04/23) Stiffness of right hip, not elsewhere classified (02/04/23) Physical Therapy Treatment Note PT-OP-A Visit Information Start: 10/26/22 17:46 Freq: Status: Active Protocol: Document 02/04/23 12:00 DCW (Rec: 02/04/23 12:46 DCW [id number]) Out-Patient Physical Therapy Visit Information Visit Information Visit Type Treatment Note Visit Start Time 12:00 Visit Stop Time 12:45 Total Visit Minutes 45 Visit Number 20 Number of NEWSPAPER SUBSCRIPTION SOLICITOR Visits 0 Evaluation Information Evaluation Date 10/26/22 PT-OP-B Current Condition Start: 10/26/22 17:46 Freq: Status: Active Protocol: Document 10/26/22 12:50 DCW (Rec: 10/27/22 09:55 DCW [id number]) Current Condition History of Current Condition Onset Date 2020 Current Complaints R hip pain, stiffness History of Current Condition Pt is an 87 year old female presenting with a complicated history of life-long arthritis . Pt reports she was originally diagnosed with arthritis at the age of 19, was able to get treatment with various lotions and salves, which helped her life her life until she moved to [place], which with the rain and cold she worsened again. Was able to somewhat limit it's effects with Yoga and naturopathic interventions until she moved to [place] in 1995, and with the change in climate her symptoms almost completely disappeared until 2020, when she began to experience increased pain and stiffness. Has been diagnosed with spinal stenosis and severe right hip osteoarthritis. Notes she has fairly constant pain, but does not allow it to stop her from doing anything. Still regularly does yoga and tries to do a lot of stretching. Feels the pain most when trying to stand up after an extended time sitting, or when trying to lift her right leg into her car. Prior Treatments and Tests Hip x-ray: IMPRESSION: Asymmetric moderate to severe right hip joint osteoarthritis . No hip fracture or dislocation. No evidence of avascular necrosis . Alfred Patel M.D. on 09/03/2022 Lumbar MRI: IMPRESSION: Multilevel listhesis as described above. Discogenic marrow edema at T11-T12, a potential source of nonradicular axial back pain. Yylv-[id number]-[id number] multilevel multifactorial degenerative changes with areas of potential focal nerve root impingement as discussed above . Correlate for any corresponding radicular symptoms. Don Colon M.D. on 11/14/2021 PT-OP-C Subjective Start: 10/26/22 17:46 Freq: Status: Active Protocol: Document 02/04/23 12:00 DCW (Rec: 02/04/23 12:46 DCW [id number]) OP-PT Subjective Patient Comments Patient Comments I'm feeling better, I'm doing whatever I want to each day. PT-OP-F Manual Assessment Start: 10/26/22 17:46 Freq: Status: Active Protocol: Document 01/21/23 12:00 DCW (Rec: 01/21/23 12:09 DCW [id number]) Manual Assessments Soft Tissue Assessment Soft Tissue Mobility Assessment Moderate tone with tenderness to palpation 1/4: Complaint of pain along R TFL/ITB, Piriformis, Hip flexors PT-OP-K Range of Motion Start: 10/26/22 17:46 Freq: Status: Active Protocol: Document 01/21/23 12:00 DCW (Rec: 01/21/23 12:09 DCW [id number]) Hip Goniometric Range of Motion Hip Right Passive Testing Position Supine Flexion w/Knee Flexed 132 Comments Horizontal adduction: 28? PT-OP-L Special Tests Start: 10/26/22 17:46 Freq: Status: Active Protocol: Document 01/21/23 12:00 DCW (Rec: 01/21/23 12:09 DCW [id number]) Special Tests Hip Special Tests Scour Test Test Results Rough joint surface R Dudley Test Results Negative Piriformis Test Results Negative FAUSTO Test Results R ipsilateral anterior hip pain PT-OP-M Strength Start: 10/26/22 17:46 Freq: Status: Active Protocol: Document 01/21/23 12:00 DCW (Rec: 01/21/23 12:09 DCW [id number]) Hip Strength Hip Manual Muscle Testing Right Flexion (L2) 4 Good Abduction 4+ Good+ Adduction 4+ Good+ External Rotation 4+ Good+ Internal Rotation 4+ Good+ Left Flexion (L2) 5 Normal Abduction 4+ Good+ Adduction 4+ Good+ External Rotation 5 Normal Internal Rotation 5 Normal Knee Strength Knee Manual Muscle Testing Right Flexion (S2) 4+ Good+ Extension (L3) 5 Normal Left Flexion (S2) 5 Normal Extension (L3) 5 Normal Ankle/Foot Strength Ankle and Foot Manual Muscle Testing Right Dorsiflexion (L4) 5 Normal Left Dorsiflexion (L4) 5 Normal PT-OP-Q Treatments Start: 10/26/22 17:46 Freq: Status: Active Protocol: Document 02/04/23 12:00 DCW (Rec: 02/04/23 12:46 DCW [id number]) Gym Equipment Shuttle Balance Red Details WBOS (EO/EC), Staggered Therapeutic Exercises Supine Exercises Hip Flexor Supine Exercise Name Hip flexor stretch off edge of table Side right Other Exercises Child's Pose Other Exercise Name Child's Pose Comments Quadruped Resisted Ambulation Other Exercise Name Resisted side-stepping Side bilateral Resistance Green Manual Therapy Treatment Soft Tissue Mobilization ITB Body Location R ITB Mobilization Type Strumming,Sustained Pressure, Trigger Point Release Intensity/Depth Superficial Body Position Hooklying Piriformis Body Location R Piriformis Mobilization Type Strumming,Sustained Pressure Intensity/Depth Moderate Body Position Sidelying Hip Flexors Body Location R Hip Flexors Mobilization Type Strumming,Sustained Pressure Intensity/Depth Moderate Body Position Hooklying Manual Traction Lower Extremity Details Long-axis R LE traction PT-OP-T Assessment and Plan Start: 10/26/22 17:46 Freq: Status: Active Protocol: Document 02/04/23 12:00 DCW (Rec: 02/04/23 12:46 DCW [id number]) Physical Therapy Assessment Impairments Impairments Functional Activities, Functional Mobility,Pain,ROM, Soft Tissue Mobility,Strength, Tone Goals Three Impairment Mildly restricted R hip ROM, limited to 121? active flexion Short Term Goal (STG) Pt to demonstrate improved R hip PROM to 120? flexion in order to improve ability to perform piriformis stretching exercises STG Duration Met Fdc Goal (LTG) Pt to demonstrate improved R hip AROM to 130? flexion in order to improve ability to perform piriformis stretching exercises LTG Duration 02/26/23 Two Impairment Pt exhibits right hip weakness , MMT for hip flexion tests as 3+/5 Fdc Goal (LTG) Pt to improve right hip flexion MMT to at worst 4/5 in order to improve ability to lift right leg into her vehicle without pain. LTG Duration Met One Impairment Pt does not have an appropriate home exercise program Short Term Goal (STG) Pt to be independent and compliant with an appropriate HEP STG Duration Met Assessment Summary Assessment Some increased posterior hip pain today with LE traction, however pt is showing some very good increase in hip mobility/ROM. Physical Therapy Plan Frequency and Duration Frequency of Treatment 1x/Week Plan of Care Start Date 01/21/23 Plan of Care End Date 02/26/23 Therapeutic Interventions Therapeutic Interventions Home Exercise Program,Joint Mobilizations,Manual Therapy, Patient/Caregiver Education, Self-Care/Home Management,Soft Tissue Mobilization, Therapeutic Activities, Therapeutic Exercises Modalities Cold Pack/Ice Massage,Electric Stimulation,Hot Packs, Ultrasound Next Visit Focus/Plan Next Note Type Treatment Note Next Visit Plan Stretching/flexibility, LE strengthening, STM
--- NOTE | 2023-02-19 12:59 | PT.OTN ---
Current Diagnoses Unilateral primary osteoarthritis, right hip (02/19/23) Pain in right hip (02/19/23) Stiffness of right hip, not elsewhere classified (02/19/23) Physical Therapy Treatment Note PT-OP-A Visit Information Start: 10/26/22 17:46 Freq: Status: Active Protocol: Document 02/19/23 12:15 DCW (Rec: 02/19/23 12:58 DCW [id number]) Out-Patient Physical Therapy Visit Information Visit Information Visit Type Treatment Note Visit Start Time 12:15 Visit Stop Time 13:00 Total Visit Minutes 45 Visit Number 21 Number of PROFILING MACHINE OPERATOR Visits 0 Evaluation Information Evaluation Date 10/26/22 PT-OP-B Current Condition Start: 10/26/22 17:46 Freq: Status: Active Protocol: Document 10/26/22 12:50 DCW (Rec: 10/27/22 09:55 DCW [id number]) Current Condition History of Current Condition Onset Date 2020 Current Complaints R hip pain, stiffness History of Current Condition Pt is an 87 year old female presenting with a complicated history of life-long arthritis . Pt reports she was originally diagnosed with arthritis at the age of 19, was able to get treatment with various lotions and salves, which helped her life her life until she moved to [place], which with the rain and cold she worsened again. Was able to somewhat limit it's effects with Yoga and naturopathic interventions until she moved to [place] in 1995, and with the change in climate her symptoms almost completely disappeared until 2020, when she began to experience increased pain and stiffness. Has been diagnosed with spinal stenosis and severe right hip osteoarthritis. Notes she has fairly constant pain, but does not allow it to stop her from doing anything. Still regularly does yoga and tries to do a lot of stretching. Feels the pain most when trying to stand up after an extended time sitting, or when trying to lift her right leg into her car. Prior Treatments and Tests Hip x-ray: IMPRESSION: Asymmetric moderate to severe right hip joint osteoarthritis . No hip fracture or dislocation. No evidence of avascular necrosis . Alfred Patel M.D. on 09/03/2022 Lumbar MRI: IMPRESSION: Multilevel listhesis as described above. Discogenic marrow edema at T11-T12, a potential source of nonradicular axial back pain. [id number]-[id number] multilevel multifactorial degenerative changes with areas of potential focal nerve root impingement as discussed above . Correlate for any corresponding radicular symptoms. Don Colon M.D. on 11/14/2021 PT-OP-C Subjective Start: 10/26/22 17:46 Freq: Status: Active Protocol: Document 02/19/23 12:15 DCW (Rec: 02/19/23 12:58 DCW [id number]) OP-PT Subjective Patient Comments Patient Comments Pt recovering from a recent sinus infection, feeling a bit better, does note that the pressure in her head seemed toaffect her balance. PT-OP-F Manual Assessment Start: 10/26/22 17:46 Freq: Status: Active Protocol: Document 01/21/23 12:00 DCW (Rec: 01/21/23 12:09 DCW [id number]) Manual Assessments Soft Tissue Assessment Soft Tissue Mobility Assessment Moderate tone with tenderness to palpation 1/4: Complaint of pain along R TFL/ITB, Piriformis, Hip flexors PT-OP-K Range of Motion Start: 10/26/22 17:46 Freq: Status: Active Protocol: Document 01/21/23 12:00 DCW (Rec: 01/21/23 12:09 DCW [id number]) Hip Goniometric Range of Motion Hip Right Passive Testing Position Supine Flexion w/Knee Flexed 132 Comments Horizontal adduction: 28? PT-OP-L Special Tests Start: 10/26/22 17:46 Freq: Status: Active Protocol: Document 01/21/23 12:00 DCW (Rec: 01/21/23 12:09 DCW [id number]) Special Tests Hip Special Tests Scour Test Test Results Rough joint surface R Dudley Test Results Negative Piriformis Test Results Negative FAUSTO Test Results R ipsilateral anterior hip pain PT-OP-M Strength Start: 10/26/22 17:46 Freq: Status: Active Protocol: Document 01/21/23 12:00 DCW (Rec: 01/21/23 12:09 DCW [id number]) Hip Strength Hip Manual Muscle Testing Right Flexion (L2) 4 Good Abduction 4+ Good+ Adduction 4+ Good+ External Rotation 4+ Good+ Internal Rotation 4+ Good+ Left Flexion (L2) 5 Normal Abduction 4+ Good+ Adduction 4+ Good+ External Rotation 5 Normal Internal Rotation 5 Normal Knee Strength Knee Manual Muscle Testing Right Flexion (S2) 4+ Good+ Extension (L3) 5 Normal Left Flexion (S2) 5 Normal Extension (L3) 5 Normal Ankle/Foot Strength Ankle and Foot Manual Muscle Testing Right Dorsiflexion (L4) 5 Normal Left Dorsiflexion (L4) 5 Normal PT-OP-Q Treatments Start: 10/26/22 17:46 Freq: Status: Active Protocol: Document 02/19/23 12:15 DCW (Rec: 02/19/23 12:58 DCW [id number]) Gym Equipment Shuttle Balance Red Details WBOS (EO/EC), Staggered Therapeutic Exercises Standing Exercises BOSU Lunge Standing Exercise Name BOSU Lunge Side bilateral Equipment Used Blue BOSU Hip extension Standing Exercise Name Hip Extension Side bilateral Resistance Green Other Exercises Resisted Ambulation Other Exercise Name Resisted side-stepping Side bilateral Resistance Green Manual Therapy Treatment Soft Tissue Mobilization ITB Body Location R ITB Mobilization Type Strumming,Sustained Pressure, Trigger Point Release Intensity/Depth Superficial Body Position Hooklying Piriformis Body Location R Piriformis Mobilization Type Strumming,Sustained Pressure Intensity/Depth Moderate Body Position Sidelying Hip Flexors Body Location R Hip Flexors Mobilization Type Strumming,Sustained Pressure Intensity/Depth Moderate Body Position Hooklying Manual Traction Lower Extremity Details Long-axis R LE traction PT-OP-T Assessment and Plan Start: 10/26/22 17:46 Freq: Status: Active Protocol: Document 02/19/23 12:15 DCW (Rec: 02/19/23 12:58 DCW [id number]) Physical Therapy Assessment Impairments Impairments Functional Activities, Functional Mobility,Pain,ROM, Soft Tissue Mobility,Strength, Tone Goals Three Impairment Mildly restricted R hip ROM, limited to 121? active flexion Short Term Goal (STG) Pt to demonstrate improved R hip PROM to 120? flexion in order to improve ability to perform piriformis stretching exercises STG Duration Met Insurance Agency Sales Manager Goal (LTG) Pt to demonstrate improved R hip AROM to 130? flexion in order to improve ability to perform piriformis stretching exercises LTG Duration 02/26/23 Two Impairment Pt exhibits right hip weakness , MMT for hip flexion tests as 3+/5 [facility] Goal (LTG) Pt to improve right hip flexion MMT to at worst 4/5 in order to improve ability to lift right leg into her vehicle without pain. LTG Duration Met One Impairment Pt does not have an appropriate home exercise program Short Term Goal (STG) Pt to be independent and compliant with an appropriate HEP STG Duration Met Assessment Summary Assessment Continues to have good response to treatment, likely approaching discharge within the next few visits. Did demonstrate decreased balance today, potentially secondary to ongoing effects from sinus infection. Physical Therapy Plan Frequency and Duration Frequency of Treatment 1x/Week Plan of Care Start Date 01/21/23 Plan of Care End Date 02/26/23 Therapeutic Interventions Therapeutic Interventions Home Exercise Program,Joint Mobilizations,Manual Therapy, Patient/Caregiver Education, Self-Care/Home Management,Soft Tissue Mobilization, Therapeutic Activities, Therapeutic Exercises Modalities Cold Pack/Ice Massage,Electric Stimulation,Hot Packs, Ultrasound Next Visit Focus/Plan Next Note Type Treatment Note Next Visit Plan Stretching/flexibility, LE strengthening, STM
--- NOTE | 2023-02-26 12:55 | PT.OTN ---
Current Diagnoses Unilateral primary osteoarthritis, right hip (02/26/23) Pain in right hip (02/26/23) Stiffness of right hip, not elsewhere classified (02/26/23) Physical Therapy Treatment Note PT-OP-A Visit Information Start: 10/26/22 17:46 Freq: Status: Active Protocol: Document 02/26/23 12:15 DCW (Rec: 02/26/23 12:55 DCW [id number]) Out-Patient Physical Therapy Visit Information Visit Information Visit Type Discharge Summary Visit Start Time 12:15 Visit Stop Time 12:48 Total Visit Minutes 33 Visit Number 22 Number of [employer] Visits 0 Evaluation Information Evaluation Date 10/26/22 PT-OP-B Current Condition Start: 10/26/22 17:46 Freq: Status: Active Protocol: Document 10/26/22 12:50 DCW (Rec: 10/27/22 09:55 DCW [id number]) Current Condition History of Current Condition Onset Date 2020 Current Complaints R hip pain, stiffness History of Current Condition Pt is an 87 year old female presenting with a complicated history of life-long arthritis . Pt reports she was originally diagnosed with arthritis at the age of 19, was able to get treatment with various lotions and salves, which helped her life her life until she moved to [place], which with the rain and cold she worsened again. Was able to somewhat limit it's effects with Yoga and naturopathic interventions until she moved to [place] in 1995, and with the change in climate her symptoms almost completely disappeared until 2020, when she began to experience increased pain and stiffness. Has been diagnosed with spinal stenosis and severe right hip osteoarthritis. Notes she has fairly constant pain, but does not allow it to stop her from doing anything. Still regularly does yoga and tries to do a lot of stretching. Feels the pain most when trying to stand up after an extended time sitting, or when trying to lift her right leg into her car. Prior Treatments and Tests Hip x-ray: IMPRESSION: Asymmetric moderate to severe right hip joint osteoarthritis . No hip fracture or dislocation. No evidence of avascular necrosis . Alfred Patel M.D. on 09/03/2022 Lumbar MRI: IMPRESSION: Multilevel listhesis as described above. Discogenic marrow edema at T11-T12, a potential source of nonradicular axial back pain. Vbxx-bo-[id number] multilevel multifactorial degenerative changes with areas of potential focal nerve root impingement as discussed above . Correlate for any corresponding radicular symptoms. Don Colon M.D. on 11/14/2021 PT-OP-C Subjective Start: 10/26/22 17:46 Freq: Status: Active Protocol: Document 02/26/23 12:15 DCW (Rec: 02/26/23 12:55 DCW [id number]) OP-PT Subjective Patient Comments Patient Comments I'm working on my muscles and exercises, so I'm doing pretty good. Notes she can now go up and down stairs much more easily. PT-OP-F Manual Assessment Start: 10/26/22 17:46 Freq: Status: Active Protocol: Document 01/21/23 12:00 DCW (Rec: 01/21/23 12:09 DCW [id number]) Manual Assessments Soft Tissue Assessment Soft Tissue Mobility Assessment Moderate tone with tenderness to palpation 1/4: Complaint of pain along R TFL/ITB, Piriformis, Hip flexors PT-OP-K Range of Motion Start: 10/26/22 17:46 Freq: Status: Active Protocol: Document 01/21/23 12:00 DCW (Rec: 01/21/23 12:09 DCW [id number]) Hip Goniometric Range of Motion Hip Right Passive Testing Position Supine Flexion w/Knee Flexed 132 Comments Horizontal adduction: 28? PT-OP-L Special Tests Start: 10/26/22 17:46 Freq: Status: Active Protocol: Document 01/21/23 12:00 DCW (Rec: 01/21/23 12:09 DCW [id number]) Special Tests Hip Special Tests Scour Test Test Results Rough joint surface R Dudley Test Results Negative Piriformis Test Results Negative FAUSTO Test Results R ipsilateral anterior hip pain PT-OP-M Strength Start: 10/26/22 17:46 Freq: Status: Active Protocol: Document 01/21/23 12:00 DCW (Rec: 01/21/23 12:09 DCW [id number]) Hip Strength Hip Manual Muscle Testing Right Flexion (L2) 4 Good Abduction 4+ Good+ Adduction 4+ Good+ External Rotation 4+ Good+ Internal Rotation 4+ Good+ Left Flexion (L2) 5 Normal Abduction 4+ Good+ Adduction 4+ Good+ External Rotation 5 Normal Internal Rotation 5 Normal Knee Strength Knee Manual Muscle Testing Right Flexion (S2) 4+ Good+ Extension (L3) 5 Normal Left Flexion (S2) 5 Normal Extension (L3) 5 Normal Ankle/Foot Strength Ankle and Foot Manual Muscle Testing Right Dorsiflexion (L4) 5 Normal Left Dorsiflexion (L4) 5 Normal PT-OP-Q Treatments Start: 10/26/22 17:46 Freq: Status: Active Protocol: Document 02/26/23 12:15 DCW (Rec: 02/26/23 12:55 DCW [id number]) Gym Equipment Shuttle Balance Red Details WBOS (EO/EC), Staggered Therapeutic Exercises Sidelying Exercises ITB Sidelying Exercise Name ITB stretch hanging leg into extension/adduction Side right Manual Therapy Treatment Soft Tissue Mobilization ITB Body Location R ITB Mobilization Type Strumming,Sustained Pressure, Trigger Point Release Intensity/Depth Superficial Body Position Hooklying Piriformis Body Location R Piriformis Mobilization Type Strumming,Sustained Pressure Intensity/Depth Moderate Body Position Sidelying Hip Flexors Body Location R Hip Flexors Mobilization Type Strumming,Sustained Pressure Intensity/Depth Moderate Body Position Hooklying Manual Traction Lower Extremity Details Long-axis R LE traction PT-OP-T Assessment and Plan Start: 10/26/22 17:46 Freq: Status: Active Protocol: Document 02/26/23 12:15 DCW (Rec: 02/26/23 12:55 DCW [id number]) Physical Therapy Assessment Impairments Impairments Functional Activities, Functional Mobility,Pain,ROM, Soft Tissue Mobility,Strength, Tone Goals Three Impairment Mildly restricted R hip ROM, limited to 121? active flexion Short Term Goal (STG) Pt to demonstrate improved R hip PROM to 120? flexion in order to improve ability to perform piriformis stretching exercises STG Duration Met Longterm Goal (LTG) Pt to demonstrate improved R hip AROM to 130? flexion in order to improve ability to perform piriformis stretching exercises LTG Duration 02/26/23 Two Impairment Pt exhibits right hip weakness , MMT for hip flexion tests as 3+/5 Longterm Goal (LTG) Pt to improve right hip flexion MMT to at worst 4/5 in order to improve ability to lift right leg into her vehicle without pain. LTG Duration Met One Impairment Pt does not have an appropriate home exercise program Short Term Goal (STG) Pt to be independent and compliant with an appropriate HEP STG Duration Met Assessment Summary Assessment Pt feels comfortable with current HEP, very happy with current level of function. notes she has learned a lot, and feels much more comfortable with her abilities . Pt has largely met all goals , is independent with HEP, and is appropriate for discharge at this time. Physical Therapy Plan Frequency and Duration Frequency of Treatment 1x/Week Plan of Care Start Date 01/21/23 Plan of Care End Date 02/26/23 Therapeutic Interventions Therapeutic Interventions Home Exercise Program,Joint Mobilizations,Manual Therapy, Patient/Caregiver Education, Self-Care/Home Management,Soft Tissue Mobilization, Therapeutic Activities, Therapeutic Exercises Modalities Cold Pack/Ice Massage,Electric Stimulation,Hot Packs, Ultrasound Discharge Physical Therapy Discharge Reasons Goals Met Next Visit Focus/Plan Next Note Type Discharge Summary
== END 2023-03-01 13:12 | disposition home or self-care (01) ==
LOC: PHYS 12:15
PROVIDERS: Family Provider Family Medicine; PCP Family Medicine; Referring Provider Family Medicine; Visit Provider Family Medicine
DX: M16.11 Unilateral primary osteoarthritis, right hip (principal); M25.551 Pain in right hip; M25.651 Stiffness of right hip, not elsewhere classified
CPT/HCPCS: 97110; 97112; 97140; 97161; 97535

== ENCOUNTER 2023-10-11 23:33 | Emergency (ER) | payer MEDICARE, SELFPAY ==
[2022-11-23 14:56] VITALS: BMI 23.0
[2023-10-11 23:47] VITALS: BP 131/95; PULSE 59; RESP 18; TEMP 36.5; O2SAT 96; BMI 23.0
--- NOTE | 2023-10-11 23:51 | DI.RAD.S_ITS ---
PROCEDURE: XR HIP W PEL IF DONE RT 2V INDICATIONS: ATRAUMATIC SHARP R HIP PAIN TECHNIQUE: AP pelvis with lateral view(s) of the right hip(s). COMPARISON: [facility], , XR HIP W PEL IF DONE RT 2V, 09/03/2022, 17:09. FINDINGS: Bones: No fractures or dislocations. Pelvic ring appears intact. No suspicious bony lesions. There is, however, significant interval worsening of right hip degenerative osteoarthritic change where there is now [id number]-kh-[id number] articulation and subchondral cysts at the acetabulum and upper border of the right femoral head. Soft tissues: The visualized bowel gas pattern is normal. No suspicious soft tissue calcifications. IMPRESSION: Severe osteoarthritis with subchondral cyst formation at the right hip joint, with [id number]-lj-[id number] articulation. This has significantly progressed from 1 year ago. Dictated by: Cristóbal Mcdowell M.D. on 10/12/2023 at 0:13 Approved by: Cristóbal Mcdowell M.D. on 10/12/2023 at 0:15
--- NOTE | 2023-10-12 00:41 | ED.EXTPRO ---
HPI - Extremity Problem General Chief complaint: Extremity Problem,Nontraumatic Stated complaint: rt side hip pain feels its dislocated Time Seen by Provider: 10/11/23 23:50 Source: patient Mode of arrival: Wheelchair History of Present Illness HPI Narrative: 88-year-old female with history hip arthritis presents for severe right hip pain and decreased ability to bear weight. Patient states that she is followed by Dr. Holt of pain medicine for her hip and has received injections and physical therapy, which has provided some relief but not much. Patient states she was normally able to walk with a cane. This evening she was in her usual state of health and sat down to watch a movie on the couch. When she went to stand up she felt severe pain in her right hip and was unable to ambulate. She called her friend who brought her to the emergency department. Denies trauma. Related Data Home Medications Medication Instructions Recorded Confirmed diltiazem HCl 120 mg 120 mg PO DAILY 03/23/23 09/13/23 capsule,extended release 24 hr Previous Rx's Medication Instructions Recorded diltiazem HCl 120 mg 120 mg PO DAILY #90 caps 09/03/22 capsule,extended release 24 hr, controlled (DILT-XR) hydrocodone 5 mg-acetaminophen 325 1 tab PO Q8H PRN pain #10 tabs 10/12/23 mg tablet Allergies Allergy/AdvReac Type Severity Reaction Status Date / Time alendronate sodium AdvReac Mild Verified 09/13/23 12:57 [From Fosamax] ciprofloxacin [From Cipro] AdvReac Mild Verified 09/13/23 12:57 estrogens, conjugated AdvReac Mild Verified 09/13/23 12:57 [From Premarin] olopatadine [From Patanase] AdvReac Mild Verified 09/13/23 12:57 rivaroxaban [From Xarelto] AdvReac Mild Rash Verified 09/13/23 12:57 Review of Systems Review of Systems Narrative: See HPI Patient History Medical History Low back pain SI (sacroiliac) joint dysfunction Osteoarthritis of right hip Right hip pain Hypertension Insomnia GERD (gastroesophageal reflux disease) Atrial fibrillation with rapid ventricular response Diverticulitis Surgical History No significant past surgical history Family History Sister Atrial fibrillation Stroke Mother Stroke Social History household members: none Smoking Status: Never smoker alcohol intake: never Smoking Status: Never smoker Substance Use Type: does not use Exam Initial Vital Signs Initial Vital Signs: Vital Signs Temperature 97.7 F 10/11/23 23:47 Pulse Rate 59 L 10/11/23 23:47 Respiratory Rate 18 10/11/23 23:47 Blood Pressure 131/95 H 10/11/23 23:47 Pulse Oximetry 96 10/11/23 23:47 Oxygen Delivery Method Room Air 10/11/23 23:47 Const: Awake, alert, no acute distress, nontoxic appearing Cardiac: regular rate, regular rhythm RESP: unlabored, clear bilaterally, no wheezing MSK: Generalized tenderness to palpation along right hip, decreased range of motion due to pain, no edema Skin: Warm, Dry, intact, no rashes Neuro: AO x3, CN II-XII grossly intact, moves all extremities Course Orders Ordered: Discontinued Medications Oxycodone HCl (Oxycodone Ir 5 Mg Tablet) 5 mg PO NOW ONE Stop: 10/12/23 00:42 Last Admin: 10/12/23 00:51 Dose: 5 mg Documented By: DELMA Vital Signs Vital signs: Vital Signs - 8 hr 10/11/23 23:47 Temperature 97.7 F Pulse Rate 59 L Respiratory Rate 18 Blood Pressure 131/95 H Pulse Oximetry 96 Oxygen Delivery Method Room Air MDM - Extremity (Nontraumatic) Imaging Data Extremity x-ray #1: Radiologist's Impression: PROCEDURE: XR HIP W PEL IF DONE RT 2V INDICATIONS: ATRAUMATIC SHARP R HIP PAIN TECHNIQUE: AP pelvis with lateral view(s) of the right hip(s). COMPARISON: [facility], , XR HIP W PEL IF DONE RT 2V, 09/03/2022, 17:09. FINDINGS: Bones: No fractures or dislocations. Pelvic ring appears intact. No suspicious bony lesions. There is, however, significant interval worsening of right hip degenerative osteoarthritic change where there is now utld-jp-rupk articulation and subchondral cysts at the acetabulum and upper border of the right femoral head. Soft tissues: The visualized bowel gas pattern is normal. No suspicious soft tissue calcifications. IMPRESSION: Severe osteoarthritis with subchondral cyst formation at the right hip joint, with hzql-bq-aetw articulation. This has significantly progressed from 1 year ago. Dictated by: Cristóbal Mcdowell M.D. on 10/12/2023 at 0:13 Approved by: Cristóbal Mcdowell M.D. on 10/12/2023 at 0:15 CT scan - abdomen/pelvis: Radiologist's Impression: PROCEDURE: CT PEL WO CON INDICATIONS: R HIP PAIN, UNABLE TO BEAR WEIGHT TECHNIQUE: Noncontrast 3 mm axial sections acquired through the bony pelvis, with coronal and sagittal reformatting. COMPARISON: [facility], CR, XR HIP W PEL IF DONE RT 2V, 10/11/2023, 23:52. [facility], CR, XR HIP W PEL IF DONE RT 2V, 09/03/2022, 17:09. FINDINGS: Image quality: Excellent. Bones: An acute or chronic fracture is not found. As seen on plain film imaging earlier same day there is severe degenerative change that has progressed significantly from the earlier plain film comparison study at the right hip. No clear CT evidence a vascular necrosis is found. Subchondral cyst formation is prominent. Articulation is dgkg-sa-[id number] at the right hip. Soft tissues: Acute disease. IMPRESSION: Severe progression of right hip joint degenerative osteoarthritis clear CT evidence of prior fracture or a vascular necrosis. Prominent subchondral cyst formation is present. Fezv-wc-cqok articulation also is present. Dictated by: Cristóbal Mcdowell M.D. on 10/12/2023 at 1:26 Approved by: Cristóbal Mcdowell M.D. on 10/12/2023 at 1:30 MDM Narrative Medical decision making narrative: Atraumatic severe pain in her right hip. Unable to ambulate due to severity of pain. X-ray imaging shows severe progressed osteoarthritis. We will order CT scan to ensure there was no occult fracture causing patient's severe pain. CT scan shows severe progression of arthritis, no evidence of necrosis or fracture. Subchondral cyst present. Patient was given an oxycodone and had significant improvement in her pain. Imaging findings discussed with the patient at bedside. She states that she was previously been very reluctant to undergo surgery due to living alone and not having anyone at home to help her if she does undergo surgery. I counseled following up with her pain management doctor to discuss further options given the severity of her CT findings. I recommended Tylenol and ibuprofen as 1st line pain medications, however if her pain is unbearable a short course of pain medication was sent to the patient's pharmacy. I did strongly advise the patient that this medicine may cause drowsiness and puts her at increased risk of falls. Discharge Plan Departure Patient Disposition: Home Clinical Impression: Osteoarthritis of right hip, Right hip pain Instructions: DI for Osteoarthritis Activity Restrictions/Additional Instructions: You may take 400 mg of ibuprofen and up to 1000 mg of Tylenol every 6 hours as needed for pain. Make sure that you take no more than 4000 mg of Tylenol daily. If this does not control your pain a very short course of hydrocodone has been sent to your pharmacy. Be very careful with this medication as it may cause drowsiness and we will put you at increased risk of falling. This may also cause constipation, take a daily stool softener if you use this medicine. Prescriptions: New hydrocodone-acetaminophen 5-325 mg tablet 1 tab PO Q8H PRN (Reason: pain) Qty: 10 0RF No Action diltiazem HCl [DILT-XR] 120 mg capsule,ext.rel 24h degradable 120 mg PO DAILY Qty: 90 0RF diltiazem HCl 120 mg capsule,extended release 24hr 120 mg PO DAILY Referrals: Blanco Lane MD [Primary Care Provider] - Stand Alone Forms: Patient Portal/API
[2023-10-12] MEDS: OXYCODONE IR 5 MG TABLET PO (00:51)
[2023-10-12 02:01] VITALS: BP 137/63; PULSE 69; RESP 18; O2SAT 94
== END 2023-10-12 02:03 | disposition home or self-care (01) ==
PROVIDERS: Emergency Provider Emergency Medicine; Family Provider Family Medicine; PCP Family Medicine
DX: M16.11 Unilateral primary osteoarthritis, right hip (principal)
CPT/HCPCS: 72192; 73502; 99283

== ENCOUNTER 2023-11-12 12:00 | Outpatient (RCR) | payer MEDICARE, SELFPAY ==
[2022-11-23 14:56] VITALS: BMI 23.0
--- NOTE | 2023-11-08 12:45 | PT.OIE ---
Current Diagnoses Pain in right hip (11/08/23) Stiffness of right hip, not elsewhere classified (11/08/23) Sacrococcygeal disorders, not elsewhere classified (11/08/23) Other abnormalities of gait and mobility (11/08/23) Past Medical History (Last Reviewed 10/13/23 @ 02:52 by Seda Jeff MD) Atrial fibrillation with rapid ventricular response Diverticulitis GERD (gastroesophageal reflux disease) Hypertension Insomnia Low back pain Osteoarthritis of right hip Right hip pain SI (sacroiliac) joint dysfunction Past Surgical History (Last Reviewed 10/13/23 @ 02:52 by Seda Jeff MD) No significant past surgical history Visit Care Team Role Provider Type Blanco Lane MD Family Provider Physician Primary Care Provider Specialty: Family Practice Address: [address] [place] [address] Email: [email or web address] Amilcar Holt MD Attending Provider Physician Referring Provider Specialty: Anesthesiology Interventional Radiology Pain Management Address: [address] [place] [address], [facility] Email: [email or web address] Physical Therapy Initial Evaluation PT-OP-A Visit Information Start: 11/08/23 17:41 Freq: Status: Active Protocol: Document 11/08/23 12:10 DCW (Rec: 11/08/23 17:46 DCW [id number]) Out-Patient Physical Therapy Visit Information Visit Information Visit Type Initial Evaluation Visit Note Late Arrival Visit Start Time 12:10 Visit Stop Time 12:45 Visit Number 1 Number of CORRESPONDENCE REVIEW CLERK Visits 0 Evaluation Information Evaluation Date 11/08/23 PT-OP-B Current Condition Start: 11/08/23 17:41 Freq: Status: Active Protocol: Document 11/08/23 12:10 DCW (Rec: 11/08/23 17:52 DCW [id number]) Current Condition History of Current Condition Onset Date Multi-year history Current Complaints Worsening right hip function, pain History of Current Condition Pt is an 88 year old female presenting with a long- standing history of right hip pain. Pt was treated at this clinic for the same complaint last year with fairly good results, unfortunately function has significantly declined since that time. Recent x-rays show severe degenerative changes. Pt notes that she was seen in the ED ~ 4 weeks ago due to severe pain limiting her ability to walk. Currently taking multiple pain meds daily. Using a SPC to help gait. Pt reports she did attempt a steroid injection, felt mildly better for one week, then went back to the same level of pain. Does have an appointment scheduled with Ortho 11/10/23, however very hesitant to undergo surgery at this time. 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 This has significantly progressed from 1 year ago. per Cristóbal Mcdowell M.D. on 10/12/2023 Treatment Goals Patient/Caregiver Goals Avoid surgical intervention PT-OP-C Subjective Start: 11/08/23 17:41 Freq: Status: Active Protocol: Document 11/08/23 12:10 DCW (Rec: 11/08/23 17:46 DCW [id number]) OP-PT Subjective Patient Comments Patient Comments Pt notes fairly significant decline in hip function since last seen in PT 02/26/23 Patient Questionnaires Lower Extremity Functional Scale LEFS Score 23/80 = 28.75% LEFS Impairment 60 to 79% Impaired (Score 17- 31) Oswestry Low Back Index Oswestry Score 20/50 = 40% Oswestry Impairment 40 to 59% Impaired (Score 40- 59) PT-OP-G Mobility & Gait Start: 11/08/23 17:41 Freq: Status: Active Protocol: Document 11/08/23 12:10 DCW (Rec: 11/09/23 09:34 DCW [id number]) OP Gait Assessment Gait Gait Assistance Required: Independent Assistive Devices Assistive Device Straight Cane Gait Deviations General Gait Pattern Antalgic,Lateral Trunk Lean Factors Limiting Gait Function Factors Limiting Gait Function Decreased Strength,Limited Range of Motion,Pain Comments Gait Comments Left lateral shift during gait to unweight right LE, heavy reliance on SPC in left hand PT-OP-K Range of Motion Start: 11/08/23 17:41 Freq: Status: Active Protocol: Document 11/08/23 12:10 DCW (Rec: 11/09/23 09:34 DCW [id number]) Hip Goniometric Range of Motion Hip Right Active Hip ROM WFL No Testing Position Supine Flexion w/Knee Flexed 82 Abduction 21 Internal Rotation 12 External Rotation 4 Left Passive Testing Position Supine Flexion w/Knee Flexed 110 Abduction 50 PT-OP-M Strength Start: 11/08/23 17:41 Freq: Status: Active Protocol: Document 11/08/23 12:10 DCW (Rec: 11/09/23 09:34 DCW [id number]) Hip Strength Hip Manual Muscle Testing Right Flexion (L2) 3 Fair Abduction 4- Good- Adduction 4- Good- External Rotation 4- Good- Internal Rotation 3- Fair- Comments Pain with resisted right flexion and IR Left Flexion (L2) 4+ Good+ Abduction 4+ Good+ Adduction 4+ Good+ External Rotation 4+ Good+ Internal Rotation 4+ Good+ PT-OP-T Assessment and Plan Start: 11/08/23 17:41 Freq: Status: Active Protocol: Document 11/08/23 12:10 DCW (Rec: 11/09/23 09:47 DCW [id number]) Physical Therapy Assessment Rehab Potential Rehabilitation Potential Fair Evaluation Complexity Number of Personal Factors/Comorbidities 1-2 Number of Body Systems Impaired 4 or More Clinical Presentation at Evaluation Unstable Impairments Impairments Activity Tolerance,Functional Activities,Functional Mobility ,Gait,Pain,ROM,Strength Goals Three Impairment Pt complaints of difficulty lifting her right leg into her vehicle Longterm Goal (LTG) Pt to demonstrate increased right hip MMT to at least 4-/5 flexion in order to improve ability to enter/exit her vehicle. LTG Duration 01/08/24 Two Impairment Pt ambulates with a moderate left lateral trunk lean Longterm Goal (LTG) Pt to ambulate with no lateral lean and mild antalgia using a SPC 80% of the time without verbal cues LTG Duration 01/08/24 One Impairment Pt does not have an appropriate home exercise program Short Term Goal (STG) Pt to be independent and compliant with an appropriate HEP STG Duration 12/08/23 Assessment Summary Assessment Pt presents with signs and symptoms consistent with referring diagnosis. Pt struggling with declining function since discharge from prior PT ~eight months ago. Pt x-ray showing severe degenerative changes, advanced since last imaging was performed. Prior injections have failed, pt has been referred to ortho for potential JEFE, but pt has not been seen yet. Pt will likely benefit from general strengthening and gait training to help decrease lateral lean and normalize gait pattern, but severe nature of pt's hip degeneration and failure of conservative treatments likely indicate pt will be undergoing joint replacement in the future, which, if this is the case, pt will still benefit from pre-op strengthening. Focus on bilateral hip strengthening, gait training, and working on hip mobility. Physical Therapy Plan Frequency and Duration Frequency of Treatment 2x/Week Plan of Care Start Date 11/08/23 Plan of Care End Date 01/08/24 Therapeutic Interventions Therapeutic Interventions Balance Training,Home Exercise Program,Joint Mobilizations, Manual Therapy,Neuromuscular Re-education,Patient/Caregiver Education,Self-Care/Home Management,Soft Tissue Mobilization,Therapeutic Activities,Therapeutic Exercises Modalities Cold Pack/Ice Massage,Electric Stimulation,Hot Packs Next Visit Focus/Plan Next Note Type Treatment Note Next Visit Plan Hip strengthening, gait training, mobility
--- NOTE | 2023-11-08 12:45 | PT.OPPOC ---
Physical, Occupational & Speech Therapy At [facility] Current Diagnoses Pain in right hip (11/08/23) Stiffness of right hip, not elsewhere classified (11/08/23) Sacrococcygeal disorders, not elsewhere classified (11/08/23) Other abnormalities of gait and mobility (11/08/23) Visit Care Team Role Provider Type Blanco Lane MD Family Provider Physician Primary Care Provider Specialty: Family Practice Address: [address] [place] [address], [id number] Email: [email or web address] Amilcar Holt MD Attending Provider Physician Referring Provider Specialty: Anesthesiology Interventional Radiology Pain Management Address: [facility] [place], [address] Email: [email or web address] Plan Of Care PT-OP-T Assessment and Plan Start: 11/08/23 17:41 Freq: Status: Active Protocol: Document 11/08/23 12:10 DCW (Rec: 11/09/23 09:47 DCW [id number]) Physical Therapy Assessment Rehab Potential Rehabilitation Potential Fair Evaluation Complexity Number of Personal Factors/Comorbidities 1-2 Number of Body Systems Impaired 4 or More Clinical Presentation at Evaluation Unstable Impairments Impairments Activity Tolerance,Functional Activities,Functional Mobility ,Gait,Pain,ROM,Strength Goals Three Impairment Pt complaints of difficulty lifting her right leg into her vehicle [facility] Goal (LTG) Pt to demonstrate increased right hip MMT to at least 4-/5 flexion in order to improve ability to enter/exit her vehicle. LTG Duration 01/08/24 Two Impairment Pt ambulates with a moderate left lateral trunk lean [facility] Goal (LTG) Pt to ambulate with no lateral lean and mild antalgia using a SPC 80% of the time without verbal cues LTG Duration 01/08/24 One Impairment Pt does not have an appropriate home exercise program Short Term Goal (STG) Pt to be independent and compliant with an appropriate HEP STG Duration 12/08/23 Assessment Summary Assessment Pt presents with signs and symptoms consistent with referring diagnosis. Pt struggling with declining function since discharge from prior PT ~eight months ago. Pt x-ray showing severe degenerative changes, advanced since last imaging was performed. Prior injections have failed, pt has been referred to ortho for potential JEFE, but pt has not been seen yet. Pt will likely benefit from general strengthening and gait training to help decrease lateral lean and normalize gait pattern, but severe nature of pt's hip degeneration and failure of conservative treatments likely indicate pt will be undergoing joint replacement in the future, which, if this is the case, pt will still benefit from pre-op strengthening. Focus on bilateral hip strengthening, gait training, and working on hip mobility. Physical Therapy Plan Frequency and Duration Frequency of Treatment 2x/Week Plan of Care Start Date 11/08/23 Plan of Care End Date 01/08/24 Therapeutic Interventions Therapeutic Interventions Balance Training,Home Exercise Program,Joint Mobilizations, Manual Therapy,Neuromuscular Re-education,Patient/Caregiver Education,Self-Care/Home Management,Soft Tissue Mobilization,Therapeutic Activities,Therapeutic Exercises Modalities Cold Pack/Ice Massage,Electric Stimulation,Hot Packs Next Visit Focus/Plan Next Note Type Treatment Note Next Visit Plan Hip strengthening, gait training, mobility Plan of Care Dates Plan of Care Start Date 11/08/23 Plan of Care End Date 01/08/24 Electronically Signed by: Renzo Obrien, PT 11/09/23 1029 If you are in agreement with this Plan of Care, please return a signed and dated copy. I have reviewed this Plan of Care and certify that the skilled therapy services above are required to meet the patient?s needs. Physician Signature Date Printed Name and Credentials Clinical Instructor Signature Printed Name and Credentials
--- NOTE | 2023-11-12 12:48 | PT.OTN ---
Current Diagnoses Pain in right hip (11/12/23) Stiffness of right hip, not elsewhere classified (11/12/23) Sacrococcygeal disorders, not elsewhere classified (11/12/23) Other abnormalities of gait and mobility (11/12/23) Physical Therapy Treatment Note PT-OP-A Visit Information Start: 11/08/23 17:41 Freq: Status: Active Protocol: Document 11/12/23 12:05 DCW (Rec: 11/12/23 12:48 DCW [id number]) Out-Patient Physical Therapy Visit Information Visit Information Visit Type Treatment Note Visit Start Time 12:05 Visit Stop Time 12:45 Visit Number 2 Number of TEACHER ADVISOR Visits 0 Evaluation Information Evaluation Date 11/08/23 PT-OP-B Current Condition Start: 11/08/23 17:41 Freq: Status: Active Protocol: Document 11/08/23 12:10 DCW (Rec: 11/08/23 17:52 DCW [id number]) Current Condition History of Current Condition Onset Date Multi-year history Current Complaints Worsening right hip function, pain History of Current Condition Pt is an 88 year old female presenting with a long- standing history of right hip pain. Pt was treated at this clinic for the same complaint last year with fairly good results, unfortunately function has significantly declined since that time. Recent x-rays show severe degenerative changes. Pt notes that she was seen in the ED ~ 4 weeks ago due to severe pain limiting her ability to walk. Currently taking multiple pain meds daily. Using a SPC to help gait. Pt reports she did attempt a steroid injection, felt mildly better for one week, then went back to the same level of pain. Does have an appointment scheduled with Ortho 11/10/23, however very hesitant to undergo surgery at this time. 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 This has significantly progressed from 1 year ago. per Cristóbal Mcdowell M.D. on 10/12/2023 Treatment Goals Patient/Caregiver Goals Avoid surgical intervention PT-OP-C Subjective Start: 11/08/23 17:41 Freq: Status: Active Protocol: Document 11/12/23 12:05 DCW (Rec: 11/12/23 12:48 DCW [id number]) OP-PT Subjective Patient Comments Patient Comments Pt had her consultation with Dr Shiela, simply states that Yeah, I need a replacement. Has surgery scheduled for December 08 PT-OP-G Mobility & Gait Start: 11/08/23 17:41 Freq: Status: Active Protocol: Document 11/08/23 12:10 DCW (Rec: 11/09/23 09:34 DCW [id number]) OP Gait Assessment Gait Gait Assistance Required: Independent Assistive Devices Assistive Device Straight Cane Gait Deviations General Gait Pattern Antalgic,Lateral Trunk Lean Factors Limiting Gait Function Factors Limiting Gait Function Decreased Strength,Limited Range of Motion,Pain Comments Gait Comments Left lateral shift during gait to unweight right LE, heavy reliance on SPC in left hand PT-OP-K Range of Motion Start: 11/08/23 17:41 Freq: Status: Active Protocol: Document 11/08/23 12:10 DCW (Rec: 11/09/23 09:34 DCW [id number]) Hip Goniometric Range of Motion Hip Right Active Hip ROM WFL No Testing Position Supine Flexion w/Knee Flexed 82 Abduction 21 Internal Rotation 12 External Rotation 4 Left Passive Testing Position Supine Flexion w/Knee Flexed 110 Abduction 50 PT-OP-M Strength Start: 11/08/23 17:41 Freq: Status: Active Protocol: Document 11/08/23 12:10 DCW (Rec: 11/09/23 09:34 DCW [id number]) Hip Strength Hip Manual Muscle Testing Right Flexion (L2) 3 Fair Abduction 4- Good- Adduction 4- Good- External Rotation 4- Good- Internal Rotation 3- Fair- Comments Pain with resisted right flexion and IR Left Flexion (L2) 4+ Good+ Abduction 4+ Good+ Adduction 4+ Good+ External Rotation 4+ Good+ Internal Rotation 4+ Good+ PT-OP-Q Treatments Start: 11/08/23 17:41 Freq: Status: Active Protocol: Document 11/12/23 12:05 DCW (Rec: 11/12/23 12:48 DCW [id number]) Cardio Equipment Recumbent Elliptical (BiodPhotomedex) Duration (Minutes) 8 Resistance 1 Seat Position 8 Therapeutic Exercises Other Exercises Side-stepping Other Exercise Name Side-stepping Side bilateral Equipment Used // bars Manual Therapy Treatment Consent Patient gave verbal consent for manual Yes treatment Soft Tissue Mobilization R hip Body Location R Piriformis, glute, low back PT-OP-T Assessment and Plan Start: 11/08/23 17:41 Freq: Status: Active Protocol: Document 11/12/23 12:05 DCW (Rec: 11/12/23 12:48 DCW [id number]) Physical Therapy Assessment Impairments Impairments Activity Tolerance,Functional Activities,Functional Mobility ,Gait,Pain,ROM,Strength Goals Three Impairment Pt complaints of difficulty lifting her right leg into her vehicle Chronic Care Nurse Goal (LTG) Pt to demonstrate increased right hip MMT to at least 4-/5 flexion in order to improve ability to enter/exit her vehicle. LTG Duration 01/08/24 Two Impairment Pt ambulates with a moderate left lateral trunk lean Chronic Care Nurse Goal (LTG) Pt to ambulate with no lateral lean and mild antalgia using a SPC 80% of the time without verbal cues LTG Duration 01/08/24 One Impairment Pt does not have an appropriate home exercise program Short Term Goal (STG) Pt to be independent and compliant with an appropriate HEP STG Duration 12/08/23 Assessment Summary Assessment During treatment, continued discussion regarding pt's questions and concerns surrounding upcoming JEFE. Good tolerance to today's activities. Should continue to work on pre-hab activities Physical Therapy Plan Frequency and Duration Frequency of Treatment 2x/Week Plan of Care Start Date 11/08/23 Plan of Care End Date 01/08/24 Therapeutic Interventions Therapeutic Interventions Balance Training,Home Exercise Program,Joint Mobilizations, Manual Therapy,Neuromuscular Re-education,Patient/Caregiver Education,Self-Care/Home Management,Soft Tissue Mobilization,Therapeutic Activities,Therapeutic Exercises Modalities Cold Pack/Ice Massage,Electric Stimulation,Hot Packs Next Visit Focus/Plan Next Note Type Treatment Note Next Visit Plan Hip strengthening, gait training, mobility
--- NOTE | 2023-11-15 12:17 | PT-OP ANOTE ---
Pt came in for her appointment today noting some increased fatigue and light-headedness. BP measured at 143/80 pre-activity, O2 sat 97%. Worried that recent medication change is the cause of her symptoms. Admitted she just felt very poorly, therapist and patient agreed that she should return home today, recommended she contact PCP.
--- NOTE | 2023-12-27 15:46 | PT.OPDS ---
Current Diagnoses Pain in right hip (11/12/23) Stiffness of right hip, not elsewhere classified (11/12/23) Sacrococcygeal disorders, not elsewhere classified (11/12/23) Other abnormalities of gait and mobility (11/12/23) Visit Care Team Role Provider Type Blanco Lane MD Family Provider Physician Primary Care Provider Specialty: Family Practice Address: [address] [place] [address] Email: [email or web address] Amilcar Holt MD Attending Provider Physician Referring Provider Specialty: Anesthesiology Interventional Radiology Pain Management Address: [address] [place] [address], [id number] Email: [email or web address] Visit Number Visit Number 2 Discharge Summary PT-OP-B Current Condition Start: 11/08/23 17:41 Freq: Status: Active Protocol: Document 11/08/23 12:10 DCW (Rec: 11/08/23 17:52 DCW [id number]) Current Condition History of Current Condition Onset Date Multi-year history Current Complaints Worsening right hip function, pain History of Current Condition Pt is an 88 year old female presenting with a long- standing history of right hip pain. Pt was treated at this clinic for the same complaint last year with fairly good results, unfortunately function has significantly declined since that time. Recent x-rays show severe degenerative changes. Pt notes that she was seen in the ED ~ 4 weeks ago due to severe pain limiting her ability to walk. Currently taking multiple pain meds daily. Using a SPC to help gait. Pt reports she did attempt a steroid injection, felt mildly better for one week, then went back to the same level of pain. Does have an appointment scheduled with Ortho 11/10/23, however very hesitant to undergo surgery at this time. 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 This has significantly progressed from 1 year ago. per Cristóbal Mcdowell M.D. on 10/12/2023 Treatment Goals Patient/Caregiver Goals Avoid surgical intervention PT-OP-C Subjective Start: 11/08/23 17:41 Freq: Status: Active Protocol: Document 11/12/23 12:05 DCW (Rec: 11/12/23 12:48 DCW [id number]) OP-PT Subjective Patient Comments Patient Comments Pt had her consultation with Dr Kuo, simply states that Yeah, I need a replacement. Has surgery scheduled for December 08 PT-OP-G Mobility & Gait Start: 11/08/23 17:41 Freq: Status: Active Protocol: Document 11/08/23 12:10 DCW (Rec: 11/09/23 09:34 DCW [id number]) OP Gait Assessment Gait Gait Assistance Required: Independent Assistive Devices Assistive Device Straight Cane Gait Deviations General Gait Pattern Antalgic,Lateral Trunk Lean Factors Limiting Gait Function Factors Limiting Gait Function Decreased Strength,Limited Range of Motion,Pain Comments Gait Comments Left lateral shift during gait to unweight right LE, heavy reliance on SPC in left hand PT-OP-K Range of Motion Start: 11/08/23 17:41 Freq: Status: Active Protocol: Document 11/08/23 12:10 DCW (Rec: 11/09/23 09:34 DCW [id number]) Hip Goniometric Range of Motion Hip Right Active Hip ROM WFL No Testing Position Supine Flexion w/Knee Flexed 82 Abduction 21 Internal Rotation 12 External Rotation 4 Left Passive Testing Position Supine Flexion w/Knee Flexed 110 Abduction 50 PT-OP-M Strength Start: 11/08/23 17:41 Freq: Status: Active Protocol: Document 11/08/23 12:10 DCW (Rec: 11/09/23 09:34 DCW [id number]) Hip Strength Hip Manual Muscle Testing Right Flexion (L2) 3 Fair Abduction 4- Good- Adduction 4- Good- External Rotation 4- Good- Internal Rotation 3- Fair- Comments Pain with resisted right flexion and IR Left Flexion (L2) 4+ Good+ Abduction 4+ Good+ Adduction 4+ Good+ External Rotation 4+ Good+ Internal Rotation 4+ Good+ PT-OP-T Assessment and Plan Start: 11/08/23 17:41 Freq: Status: Active Protocol: Document 12/27/23 15:46 DCW (Rec: 12/27/23 15:46 DCW [id number]) Physical Therapy Assessment Assessment Summary Assessment Pt canceled last two scheduled visits secondary to upcoming surgery. Pt will require a new referral in order to return to skilled therapy. Pt will be discharged at this time. Physical Therapy Plan Discharge Physical Therapy Discharge Reasons Change in Medical Status
== END 2023-12-30 14:26 | disposition home or self-care (01) ==
LOC: PHYS 12:00
PROVIDERS: Family Provider Family Medicine; PCP Family Medicine; Referring Provider Anesthesiology; Visit Provider Anesthesiology
DX: M53.3 Sacrococcygeal disorders, not elsewhere classified (principal); M25.551 Pain in right hip; M25.651 Stiffness of right hip, not elsewhere classified; R26.89 Other abnormalities of gait and mobility
CPT/HCPCS: 97110; 97140; 97162

== ENCOUNTER 2023-11-15 13:04 | Emergency (ER) | payer MEDICARE, SELFPAY ==
[2022-11-23 14:56] VITALS: BMI 23.0
[2023-11-15] VITALS (18 sets, daily range): BP systolic 131–165; BP diastolic 62–74; PULSE 63–81; RESP 12–25; TEMP 36.8–37.4; O2SAT 95–98; BMI 23.0
--- NOTE | 2023-11-15 18:13 | ED_ITS ---
HPI - General Adult General Chief complaint: Hypertension Stated complaint: HBP, vision changes, weakness Time Seen by Provider: 11/15/23 14:56 Source: patient Mode of arrival: Ambulatory History of Present Illness HPI narrative: Patient is a 88-year-old female history of hypertension paroxysmal atrial fibrillation on diltiazem but not anticoagulation presenting today with not feeling well. She is currently in physical therapy for her right hip which has osteoarthritis. She is scheduled to have surgery December 08. Today she went to physical therapy she woke up she was was not feeling right she has had fever and chills. She has a little bit of cough. She had some blurry vision but that seems to have resolved. She denies any chest pain or palpitations she does not feel like she was in AFib. She is currently in sinus rhythm. She has no painful or frequent urination. No nausea or vomiting. No numbness tingling or weakness. She says she just does not feel quite right. Physical therapist took her blood pressure and said it was high with a systolic in the 140s. Her blood pressure has been stable with systolic in the 140s and heart rate in the 70's. She is currently afebrile. Related Data Home Medications Medication Instructions Recorded Confirmed diltiazem HCl 120 mg 120 mg PO DAILY 03/23/23 10/26/23 capsule,extended release 24 hr Previous Rx's Medication Instructions Recorded diltiazem HCl 120 mg 120 mg PO DAILY #90 caps 09/03/22 capsule,extended release 24 hr, controlled (DILT-XR) hydrocodone 5 mg-acetaminophen 325 1 tab PO Q8H PRN pain #10 tabs 10/12/23 mg tablet Disabled Parking Permit #1 ea 10/26/23 Allergies Allergy/AdvReac Type Severity Reaction Status Date / Time alendronate sodium AdvReac Mild Verified 10/26/23 10:40 [From Fosamax] ciprofloxacin [From Cipro] AdvReac Mild Verified 10/26/23 10:40 estrogens, conjugated AdvReac Mild Verified 10/26/23 10:40 [From Premarin] olopatadine [From Patanase] AdvReac Mild Verified 10/26/23 10:40 rivaroxaban [From Xarelto] AdvReac Mild Rash Verified 10/26/23 10:40 Patient History Medical History Low back pain SI (sacroiliac) joint dysfunction Osteoarthritis of right hip Right hip pain Hypertension Insomnia GERD (gastroesophageal reflux disease) Atrial fibrillation with rapid ventricular response Diverticulitis Surgical History No significant past surgical history Family History Sister Atrial fibrillation Stroke Mother Stroke Social History household members: none Smoking Status: Never smoker alcohol intake: never Smoking Status: Never smoker Substance Use Type: does not use Exam Initial Vital Signs Initial Vital Signs: Vital Signs Temperature 98.3 F 11/15/23 13:09 Pulse Rate 70 11/15/23 13:09 Respiratory Rate 18 11/15/23 13:09 Blood Pressure 156/72 H 11/15/23 13:09 Pulse Oximetry 97 11/15/23 13:09 Oxygen Delivery Method Room Air 11/15/23 13:09 GENERAL: Alert pleasant 88-year-old female and in no acute distress. HEENT: Head atraumatic,EOMI, pupils reactive, face symmetric, moist mucous membranes CARDIOVASCULAR: Regular rate and rhythm without murmurs, rubs or gallops. RESPIRATORY: Breath sounds equal bilaterally, no wheezes rales or rhonchi. ABDOMEN: Soft, nontender. Normoactive bowel sounds all 4 quadrants. No guarding or rebound. EXTREMITIES: Normal range of motion, no clubbing or edema. Neurovascularly intact NEUROLOGICAL: Alert and oriented x4.Normal gait and speech. Cranial nerves II through XII grossly intact. 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 Scores NIH Stroke Scale Level of Conciousness: Alert, keenly responsive Ask month/age: Answers both questions correctly. Open/close eyes, close hand: Performs both tasks correctly Best gaze horizontal: Normal Visual sheppard: No visual loss Facial palsy: Normal symetrical movement Left arm drift: No drift for full 10 sec Right arm drift: No drift for full 10 sec Left leg drift: No drift for full 5 sec Right leg drift: No drift for full 5 sec Limb ataxia: Absent Sensory on face/arms/legs: Normal, no sensory loss Best language: No aphasia, normal Dysarthria: Normal Extinction or inattention: No abnormality Total NIH Stroke scale score: 0 Course Orders Ordered: Discontinued Medications Diltiazem HCl (Diltiazem Cd 120 Mg Cap) 120 mg PO NOW ONE Stop: 11/15/23 18:23 Last Admin: 11/15/23 18:37 Dose: 120 mg Documented By: ES Vital Signs Vital signs: Vital Signs - 8 hr 11/15/23 13:09 11/15/23 15:12 11/15/23 15:30 Temperature 98.3 F Pulse Rate 70 67 66 Respiratory Rate 18 24 18 Blood Pressure 156/72 H 165/74 H Pulse Oximetry 97 97 97 Oxygen Delivery Method Room Air 11/15/23 15:31 11/15/23 15:31 11/15/23 16:00 Temperature Pulse Rate 67 Respiratory Rate 25 H Blood Pressure 138/67 142/65 H Pulse Oximetry 98 Oxygen Delivery Method 11/15/23 16:00 11/15/23 16:30 11/15/23 16:30 Temperature Pulse Rate 71 81 Respiratory Rate 15 19 Blood Pressure 147/72 H Pulse Oximetry 96 95 Oxygen Delivery Method 11/15/23 17:00 11/15/23 17:30 11/15/23 18:00 Temperature Pulse Rate 79 70 67 Respiratory Rate 23 14 12 Blood Pressure Pulse Oximetry 96 95 95 Oxygen Delivery Method 11/15/23 18:25 11/15/23 18:45 11/15/23 18:48 Temperature Pulse Rate 81 78 Respiratory Rate 22 Blood Pressure 144/72 H Pulse Oximetry 97 Oxygen Delivery Method 11/15/23 19:00 11/15/23 19:00 11/15/23 19:30 Temperature Pulse Rate 68 63 Respiratory Rate 17 16 Blood Pressure 134/64 Pulse Oximetry 96 96 Oxygen Delivery Method 11/15/23 19:34 11/15/23 19:34 Temperature Pulse Rate 67 Respiratory Rate 22 Blood Pressure 139/66 Pulse Oximetry 97 Oxygen Delivery Method Room Air Medical Decision Making Lab Data 11/15/23 18:41 11/15/23 18:41 Labs: Lab Results 11/15/23 11/15/23 Range/Units 18:28 18:41 WBC 8.5 (4.5-11.0) X10^3/uL RBC 4.86 (4.0-5.2) X10^6/uL Hgb 14.2 (12.0-16.0) g/dL Hct 41.7 (36-46) % MCV 85.9 (80-100) fL MCH 29.2 (26-34) PG MCHC 34.0 (30-36) % RDW 13.6 (11.6-14.8) % Plt Count 331 (150-400) X10^3/uL Neut % (Auto) 57.9 (50-75) % Lymph % (Auto) 26.1 (25-40) % [place] % (Auto) 10.1 (3-14) % Eos % (Auto) 3.7 (2-4) % Baso % (Auto) 2.2 H (0-2) % Neut # (Auto) 4900 (7314-4939) /uL Lymph # (Auto) 2200 (9243-9888) /uL [place] # (Auto) 900 (0-900) /uL Eos # (Auto) 300 (0-450) /uL Baso # (Auto) 200 H (0-100) /uL Sodium 135 L (137-145) mmol/L Potassium 4.0 (3.4-5.1) mmol/L Chloride 102 (98-107) mmol/L Carbon Dioxide 31 (22-32) mmol/L BUN 19 H (7-17) mg/dL Creatinine 0.69 (0.52-1.04) mg/dL Estimated GFR > 60 (>60) mL/min BUN/Creatinine Ratio 27.5 H (6-22) Glucose 94 (80-110) mg/dL Calcium 9.0 (8.4-10.2) mg/dL Total Bilirubin 0.4 (0.2-1.3) mg/dL AST 30 (14-36) IU/L ALT 19 (<35) IU/L Alkaline Phosphatase 85 (38-126) U/L Total Creatine Kinase 102 (30-135) U/L Troponin I < 0.012 (0.01-0.034) ng/mL Total Protein 7.1 (6.3-8.2) g/dL Albumin 4.2 (3.5-5.0) g/dL Globulin 2.9 (1.7-4.1) g/dL Albumin/Globulin Ratio 1.4 (1.0-2.8) Lipase 120 (23-300) U/L Procalcitonin < 0.030 (<0.5) ng/mL Urine Color Yellow Urine Appearance Clear Urine pH 6.5 (4.5-8.0) Ur Specific [place] <=1.005 (1.000-1.035) Urine Protein Negative (Negative) Urine Glucose (UA) Negative (Negative) g/dL Urine Ketones Negative (NEGATIVE) Urine Occult Blood Trace-intact (Negative) Urine Nitrate Negative (Negative) Urine Bilirubin Negative (NEGATIVE) Urine Urobilinogen 0.2 (0.2) E.U./dL Ur Leukocyte Esterase Negative (NEGATIVE) Urine RBC None seen (0-5/HPF) Urine WBC None seen (0-5/HPF) Ur Squamous Epith Cells None seen (0-5/HPF) Urine Bacteria None seen (None) Ur Culture Indicated? Cult not indicated Vol Urine Centrifuged N Urine Dip Bedside Urine Glucose Negative Bedside Urine Bilirubin - Negative Bedside Urine Ketone - Negative Urine Specific [place] 1.005 Bedside Urine Occult Blood +/- Bedside Urine pH 6.5 Bedside Urine Protein - Negative Bedside Urine Urobilinogen - Negative Bedside Urine Nitrite - Negative Bedside Urine Leukocytes - Negative Esterase Point of care testing: Urine Dip Bedside Urine Glucose Negative Bedside Urine Bilirubin - Negative Bedside Urine Ketone - Negative Urine Specific [place] 1.005 Bedside Urine Occult Blood +/- Bedside Urine pH 6.5 Bedside Urine Protein - Negative Bedside Urine Urobilinogen - Negative Bedside Urine Nitrite - Negative Bedside Urine Leukocytes - Negative Esterase Imaging Data Chest x-ray: My Impression: No acute cardiopulmonary process Radiologist's Impression: NDICATIONS: cough TECHNIQUE: One view of the chest was acquired. COMPARISON: [facility], CR, XR CHEST 1V, 06/21/2020, 8:13. FINDINGS: Surgical changes and devices: None. Lungs and pleura: Lungs are clear. No pleural effusions or pneumothorax. Mediastinum: Mediastinal contours appear normal. Heart size is normal. Bones and chest wall: No suspicious bony lesions. Overlying soft tissues appear unremarkable. IMPRESSION: No acute cardiopulmonary abnormality is seen. ECG Data Attestation: I personally reviewed and interpreted this ECG as follows: Prior ECG tracings: available for review Interpretation: Normal sinus rhythm rate 63 CO interval 194 QRS 84 QTC [address] changes no ischemia MDM Narrative Medical decision making narrative: Patient 88-year-old female presenting today with some dizziness blurry vision elevated blood pressure. She has been waiting in the emergency department for number of hours in his overall feeling a lot better. Blood pressure has not been significantly high 165/74 has been the highest but is mostly 142/65. Blood work has been reviewed she has no evidence of end-organ damage. She has a negative troponin, no AUBREE, electrolytes are stable Chest x-ray has been reviewed no acute cardiopulmonary process EKG has been reviewed no acute ischemia Patient presents with some blurry in his vision more worried about her elevated blood pressure which is not extremely high no evidence of end-organ damage or hypertensive emergency or even urgency. She is given her home dose of diltiazem here in the ED. She thinks that the manufacture was changed by the pharmacy and she might be having a reaction. At this time she has no evidence of stroke NIH stroke scale 0 overall is feeling a bit better. I do recommend that she talk to her prescriber even her pharmacist bowel changing the medication Discharge Plan Departure Patient Disposition: Home Clinical Impression: Medication adverse effect Instructions: DI for High Blood Pressure Activity Restrictions/Additional Instructions: *You have been diagnosed with medication reaction *What to do: At this time blood work and evaluation in the emergency department is overall reassuring. This may or may not be a reaction to the medication. Please talk with your provider. *Continue to take medications as directed *Follow up with your primary care provider in 2-3 days or call [phone] *Return to ER if you should have increasing dizziness lightheadedness blurry vision weakness numbness tingling or any new, worsening or concerning symptoms Prescriptions: No Action (DME) Disabled Parking Permit See Rx Instructions .ROUTE .MEDSUPPLY Qty: 1 0RF Rx Instructions: I find this patient to be medically disabled and qualified for Disabled Parking as indicated and signed on the accompanying Disabled Parking Application for Individuals. diltiazem HCl [DILT-XR] 120 mg capsule,ext.rel 24h degradable 120 mg PO DAILY Qty: 90 0RF hydrocodone-acetaminophen 5-325 mg tablet 1 tab PO Q8H PRN (Reason: pain) Qty: 10 0RF diltiazem HCl 120 mg capsule,extended release 24hr 120 mg PO DAILY Referrals: Blanco Lane MD [Primary Care Provider] - Stand Alone Forms: Patient Portal/API
--- NOTE | 2023-11-15 18:21 | DI.RAD.S_ITS ---
PROCEDURE: XR CHEST 1V INDICATIONS: cough TECHNIQUE: One view of the chest was acquired. COMPARISON: [facility], CR, XR CHEST 1V, 06/21/2020, 8:13. FINDINGS: Surgical changes and devices: None. Lungs and pleura: Lungs are clear. No pleural effusions or pneumothorax. Mediastinum: Mediastinal contours appear normal. Heart size is normal. Bones and chest wall: No suspicious bony lesions. Overlying soft tissues appear unremarkable. IMPRESSION: No acute cardiopulmonary abnormality is seen. Approved by: Rylee Russo M.D.,Ph.D. on 11/15/2023 at 20:01
[2023-11-15] MEDS: dilTIAZem CD 120 MG CAP PO (18:37)
[2023-11-15 18:52] LABS: Add Manual Diff / Slide Review NO; Basophils Absolute Auto 200 /uL (0-100); Basophils Percent Auto 2.2 % (0-2); Eosinophils Absolute Auto 300 /uL (0-450); Eosinophils Percent Auto 3.7 % (2-4); Hematocrit 41.7 % (36-46); Hemoglobin 14.2 g/dL (12.0-16.0); Lymphocytes Absolute Auto 2200 /uL (1100-4500); Lymphocytes Percent Auto 26.1 % (25-40); Mean Corpuscular Hemoglobin 29.2 PG (26-34); Mean Corpuscular Volume 85.9 fL (80-100); Monocytes Absolute Auto 900 /uL (0-900); Monocytes Percent Auto 10.1 % (3-14); Neutrophils Absolute Auto 4900 /uL (1500-7000); Neutrophils Percent Auto 57.9 % (50-75); Platelet Count 331 X10^3/uL (150-400); Red Blood Cell Count 4.86 X10^6/uL (4.0-5.2); Red Cell Distribution Width 13.6 % (11.6-14.8); White Blood Cell Count 8.5 X10^3/uL (4.5-11.0)
[2023-11-15 19:05] LABS: Alanine Aminotransferase 19 IU/L (<35); Albumin 4.2 g/dL (3.5-5.0); Albumin Globulin Ratio 1.4 (1.0-2.8); Alkaline Phosphatase 85 U/L (38-126); Aspartate Aminotransferase 30 IU/L (14-36); BUN Creatinine Ratio 27.5 (6-22); Bilirubin Total 0.4 mg/dL (0.2-1.3); Blood Urea Nitrogen 19 mg/dL (7-17); Carbon Dioxide 31 mmol/L (22-32); Chloride 102 mmol/L (98-107); Creatine Kinase 102 U/L (30-135); Estimated Glomerular Filt Rate > 60 mL/min (>60); Globulin 2.9 g/dL (1.7-4.1); Glucose 94 mg/dL (80-110); HEMOLYSIS < 15 (0-50); Lipase 120 U/L (23-300); Sodium 135 mmol/L (137-145); Total Protein 7.1 g/dL (6.3-8.2)
[2023-11-15 19:05] LABS: Appearance Urine UA CLEAR; Bilirubin Urine UA NEGATIVE (NEGATIVE); Color Urine UA YELLOW; Glucose Urine UA NEGATIVE (Negative); Ketones Urine UA NEGATIVE (NEGATIVE); Leukocyte Esterase Urine UA NEGATIVE (NEGATIVE); Nitrite Urine UA NEGATIVE (Negative); Occult Blood Urine UA TRACE-INTACT (Negative); Protein Urine UA NEGATIVE (Negative); Specific Gravity Urine UA <=1.005 (1.000-1.035); Urobilinogen Urine UA 0.2 E.U./dL (0.2)
[2023-11-15 19:13] LABS: pH Urine UA 6.5 (4.5-8.0)
[2023-11-15 19:17] LABS: Troponin I < 0.012 ng/mL (0.01-0.034)
[2023-11-15 19:22] LABS: Procalcitonin < 0.030 ng/mL (<0.5)
[2023-11-15 19:24] LABS: Bacteria Urine None Seen; Culture Indicated Urine Cult Not Indicated; RBC Urine None Seen (0-5/HPF); Urine Volume N; WBC Urine None Seen (0-5/HPF)
[2023-11-15 19:31] LABS: Squamous Epithelial Cell Urine None Seen (0-5/HPF)
--- NOTE | 2023-11-15 19:53 | EKG_ITS ---
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
== END 2023-11-15 20:20 | disposition home or self-care (01) ==
PROVIDERS: Emergency Provider Emergency Medicine; Family Provider Family Medicine; PCP Family Medicine
DX: T50.905A Adverse effect of unspecified drugs, medicaments and biological substances, initial encounter (principal); I10 Essential (primary) hypertension; Z79.899 Other long term (current) drug therapy
CPT/HCPCS: 36415; 71045; 80053; 81001; 81003; 82550; 83690; 84145; 84484; 85025; 93005; 99284

== ENCOUNTER → 2023-12-06 14:56 | Outpatient (CLI) | payer MEDICARE, SELFPAY ==
[2023-11-23 16:16] VITALS: BMI 23.0
--- NOTE | 2023-12-06 14:59 | DI.US.S_ITS ---
PROCEDURE: US ABDOMEN COMPLETE INDICATIONS: Nausea, vomiting; light colored stools, decr appetite TECHNIQUE: Real-time scanning was performed of the abdominal and retroperitoneal organs, with image documentation. COMPARISON: None. FINDINGS: Liver: Liver is normal in size and homogeneous in echotexture. Gallbladder: Sonolucent without evidence cholelithiasis, gallbladder wall thickening or pericholecystic fluid. No sonographic Floyd sign. Biliary ducts: Intrahepatic bile ducts are non-dilated. Extrahepatic bile duct caliber measures 5.7 mm. Normal is 6-7 mm or less in diameter, or 10 mm or less post-cholecystectomy. Pancreas: Visualized portions of the pancreas are sonographically normal. Spleen: Spleen is normal in size and homogeneous in echotexture. Kidneys: Kidneys are normal in size and echotexture. Right kidney measures 9.1 cm long; left kidney measures 9.3 cm long. No hydronephrosis or nephrolithiasis. No solid masses. Aorta: Visualized aorta is normal in caliber at less than 3 cm. Iliacs: Proximal common iliac arteries are normal in caliber at less than 2.5 cm. IVC: Intrahepatic inferior vena cava is patent. Miscellaneous: No free abdominal fluid. IMPRESSION: Unremarkable ultrasound of the abdomen Approved by: Hay Anne M.D. on 12/06/2023 at 19:06
== END ==
PROVIDERS: Family Provider Family Medicine; PCP Family Medicine; Referring Provider Physician Assistant; Visit Provider Physician Assistant
DX: R11.2 Nausea with vomiting, unspecified (principal); R19.5 Other fecal abnormalities; R63.0 Anorexia
CPT/HCPCS: 76700

== ENCOUNTER → 2024-01-31 13:56 | Outpatient (CLI) | payer MEDICARE, SELFPAY ==
[2023-11-23 16:16] VITALS: BMI 23.0
--- NOTE | 2024-01-31 13:58 | DI.RAD.S_ITS ---
PROCEDURE: XR HAND RT MIN 3V INDICATIONS: right wrist and hand pain TECHNIQUE: 3 views of the hand(s) acquired. COMPARISON: None. FINDINGS: Bones: Oblique fracture through the 5th metacarpal shaft. Interphalangeal joint space narrowing with osteophytosis. Soft tissues: No suspicious soft tissue calcifications. Dorsal hand swelling. IMPRESSION: Oblique fracture through the 5th metacarpal shaft. Dictated by: Braulio Lobo M.D. on 01/31/2024 at 14:32 Approved by: Braulio Lobo M.D. on 01/31/2024 at 14:34
--- NOTE | 2024-01-31 13:58 | DI.RAD.S_ITS ---
PROCEDURE: XR WRIST RT MIN 3V INDICATIONS: right wrist and hand pain TECHNIQUE: Four views of the wrist were acquired. COMPARISON: None. FINDINGS: Bones: Spiral fracture of the 5th metacarpal diaphysis shows 3 millimeters of fracture fragment separation. No other osseous abnormality. Joints: Moderate STT and severe 1st CMC degenerative change noted. Chondrocalcinosis present in the radiocarpal cartilage and TFCC. Soft tissues: Mild diffuse soft tissue swelling noted. IMPRESSION: Minimally displaced spiral fracture of the proximal 5th metacarpal diaphysis. Degeneration Chondrocalcinosis Dictated by: Byron Chauhan M.D. on 02/01/2024 at 8:14 Approved by: Byron Chauhan M.D. on 02/01/2024 at 8:16
== END ==
PROVIDERS: Family Provider Family Medicine; PCP Family Medicine; Referring Provider Family Medicine; Visit Provider Family Medicine
DX: S62.326A Displaced fracture of shaft of fifth metacarpal bone, right hand, initial encounter for closed fracture (principal); M11.231 Other chondrocalcinosis, right wrist; M19.031 Primary osteoarthritis, right wrist; M25.531 Pain in right wrist; I48.91 Unspecified atrial fibrillation; G47.00 Insomnia, unspecified; I10 Essential (primary) hypertension; Z96.641 Presence of right artificial hip joint
CPT/HCPCS: 73110; 73130

== ENCOUNTER → 2024-02-22 09:28 | Outpatient (CLI) | payer MEDICARE, SELFPAY ==
[2023-11-23 16:16] VITALS: BMI 23.0
--- NOTE | 2024-02-22 09:30 | DI.ECHO.S_ITS ---
[facility]+ [facility] : : [address] : : [place] : : [id number] : : Phone: [phone] Echocardiogram Report + + :Name: ALMA QUICK Study Date: 02/22/2024 Height: 63 in : :[facility] ReadingLocation: Weight: 132 lb : : Gender: Female BSA: 1.6 m2 : :: 1935 Age: 88 yrs BP: 142/74 mmHg: :Reason For Study: AORTIC VALVE INSUFFICIENCY : :Ordering Physician: PAUL, : :LOLITA Performed By: Don Barriga : :Referring: LOLITA PARKER : + + Interpretation Summary 1) Normal left ventricular thickness, size, wall motion, and systolic function (EF 65-70%). 2) Normal right ventricular size and function. 3) There is mild aortic regurgitation. 4) The ascending aorta is mildly enlarged at 3.7cm. 5) No prior Echo available for comparison. Procedure: A two-dimensional transthoracic echocardiogram with color flow and Doppler was performed. The study quality was technically good. There is no prior echocardiogram noted for this patient. The patient was in normal sinus rhythm during the exam. Left Ventricle: The left ventricle is normal in size. There is normal left ventricular wall thickness. There is no ventricular septal defect visualized. The ejection fraction is estimated to be 65-70%. There are no focal wall motion abnormalities. Right Ventricle: The right ventricle is normal in size and function. Atria: The left atrial size is normal. Right atrial size is normal. The interatrial septum grossly appears intact with no obvious evidence for an atrial septal defect. There is no Doppler evidence for an atrial septal defect. Mitral Valve: The mitral valve is normal in structure and function. There is trace mitral regurgitation. Aortic Valve: The aortic valve is trileaflet. The aortic valve opens well. There is no aortic valve stenosis. There is mild aortic regurgitation. Tricuspid Valve: The tricuspid valve is normal in structure and function. There is a trace or physiologic amount of tricuspid regurgitation. Pulmonic Valve: The pulmonic valve is normal in structure and function. There is no pulmonic valvular regurgitation. Great Vessels: The aortic root is borderline dilated. The ascending aorta is mildly enlarged. The pulmonary artery is normal size. The IVC is of normal diameter and collapses greater than 50% with a sniff. This suggests a low right atrial pressure of 3 mm Hg. Pericardium/ Pleura There is no pericardial effusion. There is no pleural effusion. MMode/2D Measurements & Calculations LVIDd: 4.4 cm LVOT diam: 1.9 cm LVIDs: 2.8 cm Ao root diam: 3.6 cm FS: 36.1 % asc Aorta Diam: 3.7 cm EPSS: 0.89 cm Ao Arch Diam (Prox Trans): 2.0 cm IVSd: 0.80 cm LVPWd: 0.93 cm LV murdock. diameter/BSA (cm/m^2): 2.7 LV sys. diameter/BSA (cm/m^2): 1.8 LA A2 area: 17.7 cm2 RA long axis: 4.3 cm LA A4 area: 14.9 cm2 RA area: 11.9 cm2 LA length (vol): 4.8 cm RA vol: 27.6 ml LA vol: 46.9 ml RA : 17.1 ml/m2 LA vol index: 28.9 ml/m2 IVC diam: 1.5 cm RVD1 (basal): 3.0 cm RVD2 (mid): 2.6 cm TAPSE: 2.2 cm Doppler Measurements & Calculations Ao V2 max: 124.1 cm/sec LVOT Max Franky: 107.6 cm/sec Ao V2 mean: 85.3 cm/sec LV V1 max P.6 mmHg Ao max P.2 mmHg LV V1 VTI: 26.9 cm Ao mean P.3 mmHg JONAH(I,D): 2.5 cm2 Ao V2 VTI: 30.2 cm JONAH(V,D): 2.4 cm2 sev ratio: 0.89 JONAH indexed to BSA (cm^2/m^2): 1.5 AI P1/2t: 449.1 msec AI dec slope: 277.0 cm/sec2 MV E max franky: 54.4 cm/sec PA V2 max: 73.2 cm/sec MV A max franky: 92.7 cm/sec PA V2 mean: 50.9 cm/sec MV E/A: 0.59 PA mean P.2 mmHg Med Peak E' Franky: 4.6 cm/sec PA pr(Accel): 22.5 mmHg E/E' med: 11.8 Lat Peak E' Franky: 7.6 cm/sec E/E' lat: 7.1 E/e' average: 9.4 MV dec time: 0.28 sec SV(LVOT): 74.1 ml Reading Physician:02:50 PM
== END ==
PROVIDERS: Family Provider Family Medicine; PCP Family Medicine; Referring Provider Internal Medicine Cardiovascular Disease; Visit Provider Internal Medicine Cardiovascular Disease
DX: I35.1 Nonrheumatic aortic (valve) insufficiency (principal); I77.89 Other specified disorders of arteries and arterioles
CPT/HCPCS: 93306

== ENCOUNTER 2024-06-14 14:00 | Emergency (ER) | payer MEDICARE, SELFPAY ==
[2023-11-23 16:16] VITALS: BMI 23.0
[2024-06-14 14:10] VITALS: BP 144/65; PULSE 60; RESP 16; TEMP 36.6; O2SAT 98; BMI 24.0
[2024-06-14 14:44] LABS: Add Manual Diff / Slide Review NO; Basophils Absolute Auto 100 /uL (0-100); Basophils Percent Auto 1.9 % (0-2); Eosinophils Absolute Auto 100 /uL (0-450); Eosinophils Percent Auto 0.8 % (2-4); Hemoglobin 14.9 g/dL (12.0-16.0); Lymphocytes Absolute Auto 2200 /uL (1100-4500); Lymphocytes Percent Auto 29.3 % (25-40); Mean Corpuscular HGB Conc 33.1 % (30-36); Mean Corpuscular Hemoglobin 28.3 PG (26-34); Mean Corpuscular Volume 85.4 fL (80-100); Monocytes Absolute Auto 700 /uL (0-900); Monocytes Percent Auto 9.7 % (3-14); Neutrophils Absolute Auto 4500 /uL (1500-7000); Neutrophils Percent Auto 58.3 % (50-75); Platelet Count 319 X10^3/uL (150-400); Red Blood Cell Count 5.28 X10^6/uL (4.0-5.2); White Blood Cell Count 7.6 X10^3/uL (4.5-11.0)
[2024-06-14 14:51] LABS: Alanine Aminotransferase 21 IU/L (<35); Albumin 4.5 g/dL (3.5-5.0); Albumin Globulin Ratio 1.7 (1.0-2.8); Alkaline Phosphatase 97 U/L (38-126); Aspartate Aminotransferase 35 IU/L (14-36); BUN Creatinine Ratio 17.7 (6-22); Bilirubin Total 0.5 mg/dL (0.2-1.3); Blood Urea Nitrogen 14 mg/dL (7-17); Calcium 9.3 mg/dL (8.4-10.2); Carbon Dioxide 29 mmol/L (22-32); Chloride 102 mmol/L (98-107); Estimated Glomerular Filt Rate > 60 mL/min (>60); Globulin 2.7 g/dL (1.7-4.1); Glucose 91 mg/dL (80-110); HEMOLYSIS < 15 (0-50); Lipase 217 U/L (23-300); Potassium 4.7 mmol/L (3.4-5.1); Sodium 137 mmol/L (137-145); Total Protein 7.2 g/dL (6.3-8.2)
--- NOTE | 2024-06-14 18:13 | DI.US.S_ITS ---
PROCEDURE: US ABDOMEN LIMITED INDICATIONS: RUQ TECHNIQUE: Real-time scanning was performed of the abdominal and retroperitoneal organs, with image documentation. COMPARISON: [facility], US, US ABDOMEN COMPLETE, 12/06/2023, 15:10. FINDINGS: Liver: Liver is normal in size and homogeneous in echotexture. Subcentimeter simple cyst is seen in the right hepatic lobe. Gallbladder: No gallstones. No wall thickening. No pericholecystic edema. Negative sonographic Floyd's sign. A 3 mm polyp is seen in the gallbladder that does not require dedicated imaging follow-up. Biliary ducts: Intrahepatic bile ducts are non-dilated. Extrahepatic bile duct caliber measures 3 mm. Normal is 6-7 mm or less in diameter, or 10 mm or less post-cholecystectomy. Pancreas: Visualized portions of the pancreas are sonographically normal. Miscellaneous: No free abdominal fluid. IMPRESSION: 1. No source for right upper quadrant pain identified. 2. Gallbladder polyp measuring 3 mm, which does not require dedicated imaging follow-up based on its size. Approved by: Donnie Freire M.D. on 06/14/2024 at 19:48
--- NOTE | 2024-06-14 18:29 | ED_ITS ---
HPI - Abdominal Pain General Chief Complaint: Abdominal Pain Stated Complaint: gallbladder issues, sent by Dr. Lane Time Seen by Provider: 06/14/24 18:13 Source: patient, RN notes reviewed and old records reviewed Mode of arrival: Ambulatory Limitations: no limitations History of Present Illness HPI narrative: 88-year-old female who has had 3 episodes of vomiting since Wednesday patient describes it as yellow and bile like although the other 1 was more watery. She states she has had a couple pinches of pain on her right side but is asymptomatic currently. Denies fevers, denies any persistent nausea or vomiting. Did have some foul taste in her mouth earlier today. 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 She states she has a bowel movement daily. No dysuria urgency frequency. No back or flank pain. Patient denies any chest pain or shortness of breath. He is she would similar episodes last year had an abdominal ultrasound which was negative. Called her primary care recommended that she come to be evaluated. She takes diltiazem 120 mg daily as her only medication no anticoagulants. No tobacco, no recreational drugs. Related Data Previous Rx's Medication Instructions Recorded diltiazem HCl 120 mg 120 mg PO DAILY #90 caps 09/03/22 capsule,extended release 24 hr, controlled (DILT-XR) Disabled Parking Permit #1 ea 10/26/23 trazodone 50 mg tablet 50 mg PO BEDTIME PRN Insomnia #20 05/18/24 tabs Allergies Allergy/AdvReac Type Severity Reaction Status Date / Time alendronate sodium AdvReac Mild Verified 06/14/24 14:13 [From Fosamax] ciprofloxacin [From Cipro] AdvReac Mild Verified 06/14/24 14:13 estrogens, conjugated AdvReac Mild Verified 06/14/24 14:13 [From Premarin] olopatadine [From Patanase] AdvReac Mild Verified 06/14/24 14:13 rivaroxaban [From Xarelto] AdvReac Mild Rash Verified 06/14/24 14:13 Review of Systems Review of Systems ROS Unobtainable: All systems reviewed & are unremarkable except as noted in HPI and below Patient History Medical History Low back pain SI (sacroiliac) joint dysfunction Osteoarthritis of right hip Right hip pain Hypertension Insomnia GERD (gastroesophageal reflux disease) Atrial fibrillation with rapid ventricular response Diverticulitis Surgical History History of right hip replacement No significant past surgical history Family History Sister Atrial fibrillation Stroke Mother Stroke Social History household members: none Smoking Status: Never smoker alcohol intake: never Smoking Status: Never smoker Exam Narrative Exam Narrative: GENERAL: Alert and oriented x three, well-appearing female in no acute distress. Patient is doing exercises when I walk into the room. HEENT: Head normocephalic, atraumatic, EOMI, pupils reactive, face symmetric, moist mucous membranes NECK: Supple, full range of motion CARDIOVASCULAR: Regular rate and rhythm without murmurs, rubs or gallops. RESPIRATORY: Breath sounds equal bilaterally, no wheezes rales or rhonchi. ABDOMEN: Soft, nontender. Normoactive bowel sounds all 4 quadrants. No guarding or rebound, rigidity, no mass : No CVA tenderness EXTREMITIES: Normal range of motion, no clubbing or edema. Neurovascularly intact NEUROLOGICAL: Cranial nerves II through XII grossly intact. Moving all extremities SKIN: Warm, dry, no petechiae, no rashes or lesions. Initial Vital Signs Initial Vital Signs: Vital Signs Temperature 97.8 F 06/14/24 14:10 Pulse Rate 60 06/14/24 14:10 Respiratory Rate 16 06/14/24 14:10 Blood Pressure 144/65 H 06/14/24 14:10 Pulse Oximetry 98 06/14/24 14:10 Oxygen Delivery Method Room Air 06/14/24 14:10 Course Orders Ordered: ED Orders 06/14/24 18:13 US abdomen limited Stat 06/14/24 20:08 CT abdomen pelvis w con Stat Discontinued Medications Ondansetron HCl (Ondansetron 4 Mg/2 Ml Inj) 4 mg IV NOW PRN PRN Reason: Nausea And Vomiting Ondansetron HCl (Ondansetron 4 Mg Odt) 4 mg PO NOW PRN PRN Reason: Nausea And Vomiting Vital Signs Vital signs: Vital Signs - 8 hr 06/14/24 22:29 Pulse Rate 74 Respiratory Rate 18 Blood Pressure 137/67 Pulse Oximetry 97 Oxygen Delivery Method Room Air MDM - Abdominal Pain Lab Data 06/14/24 14:20 06/14/24 14:20 Labs: Lab Results 06/14/24 Range/Units 14:20 WBC 7.6 (4.5-11.0) X10^3/uL RBC 5.28 H (4.0-5.2) X10^6/uL Hgb 14.9 (12.0-16.0) g/dL Hct 45.0 (36-46) % MCV 85.4 (80-100) fL MCH 28.3 (26-34) PG MCHC 33.1 (30-36) % RDW 16.0 H (11.6-14.8) % Plt Count 319 (150-400) X10^3/uL Neut % (Auto) 58.3 (50-75) % Lymph % (Auto) 29.3 (25-40) % [place] % (Auto) 9.7 (3-14) % Eos % (Auto) 0.8 L (2-4) % Baso % (Auto) 1.9 (0-2) % Neut # (Auto) 4500 (7830-9011) /uL Lymph # (Auto) 2200 (6186-2374) /uL [place] # (Auto) 700 (0-900) /uL Eos # (Auto) 100 (0-450) /uL Baso # (Auto) 100 (0-100) /uL Sodium 137 (137-145) mmol/L Potassium 4.7 (3.4-5.1) mmol/L Chloride 102 (98-107) mmol/L Carbon Dioxide 29 (22-32) mmol/L BUN 14 (7-17) mg/dL Creatinine 0.79 (0.52-1.04) mg/dL Estimated GFR > 60 (>60) mL/min BUN/Creatinine Ratio 17.7 (6-22) Glucose 91 (80-110) mg/dL Calcium 9.3 (8.4-10.2) mg/dL Total Bilirubin 0.5 (0.2-1.3) mg/dL AST 35 (14-36) IU/L ALT 21 (<35) IU/L Alkaline Phosphatase 97 (38-126) U/L Total Protein 7.2 (6.3-8.2) g/dL Albumin 4.5 (3.5-5.0) g/dL Globulin 2.7 (1.7-4.1) g/dL Albumin/Globulin Ratio 1.7 (1.0-2.8) Lipase 217 (23-300) U/L Point of care testing: Urine Dip Bedside Urine Glucose Negative Bedside Urine Bilirubin - Negative Bedside Urine Ketone - Negative Urine Specific [place] 1.015 Bedside Urine Occult Blood - Negative Bedside Urine pH 6.5 Bedside Urine Protein - Negative Bedside Urine Urobilinogen - Negative Bedside Urine Nitrite - Negative Bedside Urine Leukocytes - Negative Esterase Imaging Data CT scan - abdomen/pelvis: Radiologist's Impression: [address] [address] [address] Scan Report Signed Patient: Viry Reyes MR#: [id number] : 1935 Acct:[id number] Age/Sex: 88 / F Date of Service: 06/14/24 Loc: ED Accession Number: [id number] Procedure: CT abdomen pelvis w con Ordering Provider: Seda Choe D.O. PROCEDURE: CT ABDOMEN PELVIS W CON INDICATIONS: vomiting intermittent TECHNIQUE: After the administration of intravenous contrast, axial sections acquired from the lung bases to the pubic symphysis. Coronal and sagittal reformats were performed. For radiation dose reduction, the following was used: automated exposure control, adjustment of mA and/or kV according to patient size. COMPARISON: [facility], CT, CT ABDOMEN PELVIS W CON, 12/30/2018, 13:55. FINDINGS: Image quality: Streak metal artifact from hip arthroplasty. Lower Chest: No significant findings. ABDOMEN: Liver: No solid mass. Subcentimeter hepatic hypodensities are too spiral characterized by CTs, probable cysts. Gallbladder: No radiopaque gallstones or wall thickening. Biliary ducts: No biliary dilation. Pancreas: No ductal dilation. Spleen: Size is within normal limits. Adrenal Glands: No adrenal nodules. Kidneys and Ureters: No hydronephrosis. No solid mass. No complex renal cystic lesion which requires follow up. Stomach and Bowel: Normal colonic caliber, without significant wall thickening. Scattered colonic diverticula without acute inflammation. Peritoneum: No abnormal intraperitoneal fluid. No free air. Ventral Wall: No significant ventral hernia. Abdominal Nodes: No retroperitoneal or mesenteric adenopathy by size criteria. Vessels: Aorta and inferior vena cava are normal in size. Aorto bi iliac atherosclerotic calcifications. PELVIS: Pelvic Organs: Unremarkable. Bladder: No bladder wall thickening, accounting for underdistention. Pelvic Nodes: No enlarged lymph nodes. Miscellaneous: No inguinal hernias are seen. Bones: No aggressive osseous abnormality. Right hip arthroplasty. IMPRESSION: No acute abdominopelvic process. Approved by: Rylee Russo M.D.,Ph.D. on 06/14/2024 at 21:35 US - abdomen: Radiologist's Impression: [place] [address] Ultrasound Report Signed Patient: Viry Reyes MR#: [id number] : 1935 Acct:[id number] Age/Sex: 88 / F Date of Service: 06/14/24 Loc: ED Accession Number: [id number] Procedure: US abdomen limited Ordering Provider: Miriam Riojas D.O. PROCEDURE: US ABDOMEN LIMITED INDICATIONS: RUQ TECHNIQUE: Real-time scanning was performed of the abdominal and retroperitoneal organs, with image documentation. COMPARISON: [facility], , US ABDOMEN COMPLETE, 12/06/2023, 15:10. FINDINGS: Liver: Liver is normal in size and homogeneous in echotexture. Subcentimeter simple cyst is seen in the right hepatic lobe. Gallbladder: No gallstones. No wall thickening. No pericholecystic edema. Negative sonographic Floyd's sign. A 3 mm polyp is seen in the gallbladder that does not require dedicated imaging follow-up. Biliary ducts: Intrahepatic bile ducts are non-dilated. Extrahepatic bile duct caliber measures 3 mm. Normal is 6-7 mm or less in diameter, or 10 mm or less post-cholecystectomy. Pancreas: Visualized portions of the pancreas are sonographically normal. Miscellaneous: No free abdominal fluid. IMPRESSION: 1. No source for right upper quadrant pain identified. 2. Gallbladder polyp measuring 3 mm, which does not require dedicated imaging follow-up based on its size. Approved by: Donnie Freire M.D. on 06/14/2024 at 19:48 ECG Data Attestation: I personally reviewed and interpreted this ECG as follows: MDM Narrative Medical decision making narrative: Labs show white count of 7.6 hemoglobin of 14.9 platelets of 319. Chemistries show normal electrolytes BUN creatinine, glucose of 91 LFTs are negative lipase is 217. Point of care urine shows no acute change Abdominal ultrasound shows gallbladder polyp it was during 3 mm does not require dedicated imaging follow up based on size subcentimeter simple cyst seen in the right hepatic lobe. CT abdomen pelvis redemonstrates subcentimeter hepatic hypodensities probable cysts, no acute abdominal pelvic process. Well-appearing 88-year-old female, patient's labs, vitals and imaging show gallbladder polyp but no other clear cause of her current symptoms. She was otherwise very well-appearing and felt appropriate for discharge with follow up with primary care. She has had 3 episodes of vomiting has a past several days but no other GI symptoms although she does note her stools has been more bella in coloration. She has been very careful with her diet avoiding dairy but she was unsure if this is actually causing her symptoms. Reviewed findings with the patient today had a similar episode about a year ago recommended to follow up with her primary care physician and return precautions. Discussed with the patient based on her age she was had some intermittent vomiting but otherwise well-appearing we will obtain CT abdomen pelvis. Workup shows 3 mm gallbladder polyp but hepatic cysts but no other clear source of symptoms. Patient is otherwise very well-appearing with 3 episodes of vomiting over several days and felt appropriate for discharge home. Discharge Plan Departure Patient Disposition: Home Clinical Impression: Vomiting Instructions: DI for Vomiting -- Adult Activity Restrictions/Additional Instructions: Please follow up with Dr. Lane for recheck. Your workup today showed a small gallbladder polyp that was 3 mm and some subcentimeter hypodensities in the liver but these are likely cysts. There were no other major findings on your imaging or workup today. I would recommend slowly adding foods back into your diet initially start with a BRAT diet or bananas, rice, applesauce and tea and toast you may add more diverse foods for time over the next day. Please return for fevers, persistent vomiting, new abdominal back or flank pain, black or bloody stools, difficulty with urination or other new or concerning changes. Prescriptions: No Action (DME) Disabled Parking Permit See Rx Instructions .ROUTE .MEDSUPPLY Qty: 1 0RF Rx Instructions: I find this patient to be medically disabled and qualified for Disabled Parking as indicated and signed on the accompanying [employer] Parking Application for Individuals. trazodone 50 mg tablet 50 mg PO BEDTIME PRN (Reason: Insomnia) Qty: 20 1RF diltiazem HCl [DILT-XR] 120 mg capsule,ext.rel 24h degradable 120 mg PO DAILY Qty: 90 0RF Referrals: Blanco Lane MD [Primary Care Provider] - Stand Alone Forms: Patient Portal/API/Survey
--- NOTE | 2024-06-14 18:50 | PC.NURSE ---
Pt declining vital signs.
--- NOTE | 2024-06-14 20:08 | DI.CT.S_ITS ---
PROCEDURE: CT ABDOMEN PELVIS W CON INDICATIONS: vomiting intermittent TECHNIQUE: After the administration of intravenous contrast, axial sections acquired from the lung bases to the pubic symphysis. Coronal and sagittal reformats were performed. For radiation dose reduction, the following was used: automated exposure control, adjustment of mA and/or kV according to patient size. COMPARISON: [facility], CT, CT ABDOMEN PELVIS W CON, 12/30/2018, 13:55. FINDINGS: Image quality: Streak metal artifact from hip arthroplasty. Lower Chest: No significant findings. ABDOMEN: Liver: No solid mass. Subcentimeter hepatic hypodensities are too spiral characterized by CTs, probable cysts. Gallbladder: No radiopaque gallstones or wall thickening. Biliary ducts: No biliary dilation. Pancreas: No ductal dilation. Spleen: Size is within normal limits. Adrenal Glands: No adrenal nodules. Kidneys and Ureters: No hydronephrosis. No solid mass. No complex renal cystic lesion which requires follow up. Stomach and Bowel: Normal colonic caliber, without significant wall thickening. Scattered colonic diverticula without acute inflammation. Peritoneum: No abnormal intraperitoneal fluid. No free air. Ventral Wall: No significant ventral hernia. Abdominal Nodes: No retroperitoneal or mesenteric adenopathy by size criteria. Vessels: Aorta and inferior vena cava are normal in size. Aorto bi iliac atherosclerotic calcifications. PELVIS: Pelvic Organs: Unremarkable. Bladder: No bladder wall thickening, accounting for underdistention. Pelvic Nodes: No enlarged lymph nodes. Miscellaneous: No inguinal hernias are seen. Bones: No aggressive osseous abnormality. Right hip arthroplasty. IMPRESSION: No acute abdominopelvic process. Approved by: Rylee Russo M.D.,Ph.D. on 06/14/2024 at 21:35
[2024-06-14 22:29] VITALS: BP 137/67; PULSE 74; RESP 18; O2SAT 97
== END 2024-06-14 22:35 | disposition home or self-care (01) ==
PROVIDERS: Emergency Medicine; Emergency Provider Emergency Medicine; Family Provider Family Medicine; PCP Family Medicine
DX: R11.2 Nausea with vomiting, unspecified (principal); K82.4 Cholesterolosis of gallbladder; I10 Essential (primary) hypertension
CPT/HCPCS: 36415; 74177; 76705; 80053; 81003; 83690; 85025; 99284; Q9967

== ENCOUNTER → 2024-09-06 11:39 | Outpatient (CLI) | payer MEDICARE, SELFPAY ==
[2023-11-23 16:16] VITALS: BMI 23.0
--- NOTE | 2024-09-06 11:41 | DI.RAD.S_ITS ---
PROCEDURE: XR KNEE RT 3V INDICATIONS: Bakers cyst - intermittent knee pain - suspect OA TECHNIQUE: 3 views of the knee were acquired. COMPARISON: None. FINDINGS: Bones: No fractures or dislocations. No suspicious bony lesions. Moderate medial lateral compartmental joint space narrowing with subtle chondrocalcinosis Soft tissues: Small joint effusion IMPRESSION: Moderate arthritic degenerative changes Approved by: Hay Anne M.D. on 09/06/2024 at 18:45
== END ==
PROVIDERS: Family Provider Family Medicine; PCP Family Medicine; Referring Provider Physician Assistant; Visit Provider Physician Assistant
DX: M17.12 Unilateral primary osteoarthritis, left knee (principal); M71.20 Synovial cyst of popliteal space [Baker], unspecified knee
CPT/HCPCS: 73562

== ENCOUNTER → 2025-01-19 13:53 | Outpatient (CLI) | payer MEDICARE, SELFPAY ==
[2023-11-23 16:16] VITALS: BMI 23.0
== END ==
PROVIDERS: Family Provider Family Medicine; PCP Family Medicine; Referring Provider Family Medicine; Visit Provider Family Medicine
DX: M79.89 Other specified soft tissue disorders (principal); M25.541 Pain in joints of right hand; M25.542 Pain in joints of left hand; M79.671 Pain in right foot; M79.672 Pain in left foot
CPT/HCPCS: 36415; 85651; 86140; 86200; 86430

== ENCOUNTER → 2025-02-09 14:29 | Outpatient (CLI) | payer MEDICARE, SELFPAY ==
[2023-11-23 16:16] VITALS: BMI 23.0
--- NOTE | 2025-02-09 14:30 | DI.RAD.S_ITS ---
PROCEDURE: XR CERVICAL SPINE 2V OR 3V INDICATIONS: chronic neck pain TECHNIQUE: 3 view(s) of the cervical spine were acquired. COMPARISON: None. FINDINGS: Bones: No fractures or dislocations to the T1 level. The lateral masses of C1 appear intact on the odontoid view. No suspicious bony lesions. Trace anterolisthesis of C4 on C5, trace retrolisthesis of C5 on C6. Multilevel degenerative disc space narrowing most severe at C5-6 with anterior osteophytes. Multilevel uncovertebral arthropathy is present. Soft tissues: No prevertebral soft tissue swelling. IMPRESSION: No displaced fracture or traumatic subluxation. Dictated by: Bette Marroquin M.D. on 02/09/2025 at 20:44 Approved by: Bette Marroquin M.D. on 02/09/2025 at 20:45
== END ==
LOC: RAD 14:30
PROVIDERS: Family Provider Family Medicine; PCP Family Medicine; Referring Provider Family Medicine; Visit Provider Family Medicine
DX: M54.2 Cervicalgia (principal); M62.838 Other muscle spasm; G89.29 Other chronic pain
CPT/HCPCS: 72040